=== PATIENT | female | born 1955 | race Caucasian/White ===

== ENCOUNTER → 2017-03-10 | Outpatient (CLI) | payer OTHER ==
[~2017-03-10] MED LIST: AMLO-114 PO; ASPI81TA28 PO; ATOR-22 PO; CLB/200 PO; ESTR0.3T PO; FLUO20CA35 PO; HYDR-4332 PO; LORA-741 PO; PRLSR20 PO; RANI150C4 PO; TRIATAB3 PO
== END | disposition home or self-care (01) ==
LOC: C.CPL 15:17
PROVIDERS: ATTEND Orthopaedic Surgery
DX: M23.303 Other meniscus derangements, unspecified medial meniscus, right knee (principal)

== ENCOUNTER → 2017-03-15 | Outpatient (CLI) | payer OTHER ==
[2017-03-15 13:15] LABS: LYME DISEASE AB IGG NEG (NEG); LYME DISEASE AB IGM NEG (NEG)
== END | disposition home or self-care (01) ==
LOC: C.LAB 11:04
PROVIDERS: ATTEND Orthopaedic Surgery
DX: T14.8XXA Other injury of unspecified body region, initial encounter (principal); W57.XXXA Bitten or stung by nonvenomous insect and other nonvenomous arthropods, initial encounter

== ENCOUNTER 2017-08-23 07:16 | Inpatient (IN) | payer OTHER ==
--- NOTE | 2017-08-10 15:36 | PAT Medication Instructions ---
Service Date Aug 10, 2017. Current Home Medication List Amlodipine (Norvasc), 5 MG PO QAM Atorvastatin (Lipitor), 20 MG PO QPM Fluoxetine (Prozac), 10 MG PO QAM Imipramine (Tofranil), 50 MG PO QPM Lorazepam (Ativan), 0.5 MG PO HS PRN for PRN Meloxicam (Mobic), 15 MG PO QAM Metoprolol Succinate (Toprol Xl), 1 TAB PO QPM Omeprazole (Prilosec), 20 MG PO BID Ranitidine Hcl (Ranitidine Hcl), 150 MG PO QPM Triamterene/Hctz (Triamterene/Hctz 37.5-25MG), 1 TAB PO QAM Medication Instructions For Your Scheduled Surgery - Check with surgeon for instructions: Meloxicam (Mobic), 15 MG PO QAM - Hold the following medications the morning of surgery: Triamterene/Hctz (Triamterene/Hctz 37.5-25MG), 1 TAB PO QAM - Take the following medications the morning of surgery with a sip of water: Omeprazole (Prilosec), 20 MG PO BID Lorazepam (Ativan), 0.5 MG PO HS PRN for PRN (if needed) Fluoxetine (Prozac), 10 MG PO QAM Amlodipine (Norvasc), 5 MG PO QAM - Take the following medications as scheduled the night before surgery: Ranitidine Hcl (Ranitidine Hcl), 150 MG PO QPM Omeprazole (Prilosec), 20 MG PO BID Metoprolol Succinate (Toprol Xl), 1 TAB PO QPM Lorazepam (Ativan), 0.5 MG PO HS PRN for PRN (if needed) Atorvastatin (Lipitor), 20 MG PO QPM\ Imipramine (Tofranil), 50 MG PO QPM If you have any questions please call us at [phone] or [phone] or [phone]
--- NOTE | 2017-08-10 16:15 | DIAGNOSTIC IMAGING REPORT ---
CHEST 2 VIEWS ROUTINE HISTORY: 62 years-old Female pat preoperative exam. No acute chest complaints. COMPARISON: Chest radiograph and CTA chest 05/09/2014 TECHNIQUE: PA and lateral views of the chest FINDINGS: Cardiomediastinal and hilar silhouettes are within normal limits. There is no pneumothorax, pleural effusion, focal airspace consolidation or overt pulmonary edema. The lateral left lung base is excluded from the [id number] secondary to technique. Degenerative changes are seen about the shoulders and spine. IMPRESSION: No acute process. The above report was generated using voice recognition software. It may contain grammatical, syntax or spelling errors. Electronically signed by: Deon Chino M.D. 08/10/2017 4:14 PM Dictated Date/Time: 08/10/2017 4:13 PM
[2017-08-10 16:18] LABS: BASO ABS # 0.07 K/uL (0-0.2); EOS % 3.1 %; EOS ABS # 0.22 K/uL (0-0.5); HEMATOCRIT 39.9 % (37-47); HEMOGLOBIN 13.1 g/dL (12.0-16.0); IG# 0.02 K/uL (0.00-0.02); LYMPH % 35.2 %; LYMPH ABS # 2.54 K/uL (1.2-3.4); MEAN CELL VOLUME 81.4 fL (80-100); MEAN CORPUSCULAR HEMOGLOBIN 26.7 pg (25-34); MEAN CORPUSCULAR HGB CONC 32.8 g/dl (32-36); MEAN PLATELET VOLUME 10.3 fL (7.4-10.4); MONO % 6.7 %; MONO ABS # 0.48 K/uL (0.11-0.59); NEUT % 53.7 %; NEUT ABS # 3.88 K/uL (1.4-6.5); PLATELET COUNT 291 K/uL (130-400); RED CELL DISTRIBUTION WIDTH CV 14.5 % (11.5-14.5); RED CELL DISTRIBUTION WIDTH SD 42.8 fL (36.4-46.3); WHITE BLOOD COUNT 7.21 K/uL (4.8-10.8)
[2017-08-10 16:26] LABS: PTT PATIENT 26.6 SECONDS (21.0-31.0)
[2017-08-10 16:42] LABS: ALBUMIN 3.7 gm/dl (3.4-5.0); CALCIUM 9.2 mg/dl (8.5-10.1); CREATININE 0.97 mg/dl (0.60-1.20); POTASSIUM 3.5 mmol/L (3.5-5.1)
[2017-08-11 07:03] LABS: HEMOGLOBIN A1C 6.3 % (4.5-5.6)
--- NOTE | 2017-08-16 17:22 | HISTORY & PHYSICAL EXAMINATION ---
DATE OF ADMISSION: 08/23/2017 CHIEF COMPLAINT: Right knee pain. HISTORY OF PRESENT ILLNESS: Sushila is a pleasant 62-year-old female with a 2-year history of right knee pain. The patient rates her pain as 10/10 at worst. She has pain with her daily activities. She has limited standing and walking tolerance. Pain is worse with weightbearing. The patient uses a cane to ambulate. She has had injection, bracing, physical therapy and NSAIDS in the past without relief. She has failed conservative treatment and is scheduled for right knee replacement. PAST MEDICAL HISTORY: Hypertension, hypercholesterolemia, and acid reflux. She denies heart disease, diabetes or DVT. PAST SURGICAL HISTORY: Hysterectomy, , exploratory laparotomy, and tonsillectomy. SOCIAL HISTORY: The patient rarely drinks alcohol. She denies tobacco use. She lives in a 2-story home with her and is currently retired. FAMILY HISTORY: Negative for DVT. MEDICATIONS: Prilosec 20 mg b.i.d., Dyazide 37.5/25, Lipitor 20 mg daily, metoprolol 25 mg daily, Meloxicam 15 mg daily, imipramine 50 mg p.r.n., ranitidine 150 mg, Celebrex 200 mg, fluoxetine 10 mg. ALLERGIES: PENICILLIN. REVIEW OF SYSTEMS: See HPI. Ten other systems reviewed, all negative. PHYSICAL EXAMINATION: VITAL SIGNS: Height 5 feet 5 inches, weight 180 pounds, BMI 30. GENERAL: This is a well-developed, well-nourished female who is alert and oriented x3. Mood and affect are appropriate. HEENT: Normocephalic, atraumatic. Mucous membranes are moist and intact. NECK: Supple without lymphadenopathy. HEART: Regular rate and rhythm without murmurs, rubs or gallops. LUNGS: Clear to auscultation without wheezes or rhonchi. ABDOMEN: Soft and nontender. Bowel sounds are equal and active. EXTREMITIES: No ecchymosis, redness or warmth. Thigh and calf are soft and nontender. She has mild effusion. She has neutral alignment. Range of motion is from 0-115 degrees with +1 laxity. She is neurovascularly intact with +5/5 strength. X-RAY EXAMINATION: AP and lateral views show joint space narrowing and osteophyte formation. IMPRESSION: Degenerative joint disease, right knee. PLAN: The patient will be admitted for a right total knee arthroplasty with Dr. Jones. We will plan on aspirin for DVT prophylaxis. She will have physical therapy at home with her who is a therapist. MACKENZIE
[2017-08-23] VITALS (9 sets, daily range): BP systolic 113–124; BP diastolic 66–88; PULSE 78–106; TEMP 36.6–36.8; O2SAT 93–99; Ht 165.1 cm; Wt 78.2 kg
[~2017-08-23] VITALS: Ht 165.1 cm; Wt 78.2 kg
[2017-08-23] MEDS: TRANEXAMIC ACID INJ 1,000 MG x 2 Bags IV SCH ×4 (06:30→09:05)
[~2017-08-23 07:16] MED LIST changes: +ACETAMINOPHEN 500 MG TAB PO SCH; +AMLO-110 PO; -AMLO-114 PO; -ASPI81TA28 PO; -CLB/200 PO; +CLINDAMYCIN 600 MG/54 ML D5W IV SCH; +CLINDAMYCIN PHOS 150 MG/ML 2 ML VIAL IV SCH; +CeleBREX 200 MG CAP PO SCH; +DEXAMETHASONE 4 MG TAB PO SCH; -ESTR0.3T PO; +FAMOTIDINE 20 MG TAB PO SCH; +FLUO10CA48 PO; -FLUO20CA35 PO; +GABAPENTIN 600 MG PO SCH; -HYDR-4332 PO; +IMP/50 PO; +LACTATED RINGER'S 1000ML 500 ML IV SCH; +MELO7.5T5 PO; +METO25TA4 PO; +METOCLOPRAMIDE HCL 10 MG TAB PO SCH; +ROPIVACAINE 5MG/ML 30 ML 150 MG, BUPIVACAINE 0.5% MPF INJ 30 ML, EpINEphrine HCL INJ 0.... INFIL SCH
[2017-08-23] MEDS ORDERED: BUPIVACAINE 0.5 % 5 MG/1 ML PF 10ML VIAL ONE (07:22)
[2017-08-23] MEDS ORDERED: BUPIVACAINE 0.25% 30 ML VIAL ONE (07:22)
[2017-08-23] MEDS ORDERED: ONDANSETRON INJ 2 MG/ML 2 ML VIAL IV PRN ×2 (07:30→11:00)
[2017-08-23] MEDS ORDERED: ATROPINE SULFATE 0.1 MG/ML 5ML SYR IV PRN (07:30)
[2017-08-23] MEDS ORDERED: FENTANYL CITRATE INJ 50 MCG/1 ML 2 ML VIAL IV PRN (07:30)
[2017-08-23] MEDS ORDERED: EpHEDrine SULFATE INJ 50 MG/ML AMP IV PRN (07:30)
--- NOTE | 2017-08-23 08:02 | History & Physical Bridge Note ---
H&P Re-Evaluation Bridge Note: I have examined the patient, reviewed the History & Physical and in the interval since the performance of the History & Physical I have noted the following changes of clinical significance: No changes noted
[2017-08-23] MEDS ORDERED: MIDAZOLAM HCL 1 MG/ML 2ML VIAL ONE ×2 (08:17)
[2017-08-23] MEDS ORDERED: BACITRACIN 50000 UNIT VIAL ONE (08:51)
[2017-08-23] MEDS ORDERED: POVIDONE-IODINE OP SOLN 30 ML BTL ONE (08:51)
[2017-08-23] MEDS ORDERED: ORTHO JOINT ANESTHETIC ONE (08:51)
--- NOTE | 2017-08-23 10:29 | [facility] Post Operative Brief Note ---
Immediate Operative Summary Operative Date Aug 23, 2017. Pre-Operative Diagnosis Degenerative joint disease, right knee Post-Operative Diagnosis Degenerative joint disease, right knee Procedure(s) Performed Right total Knee Arthroplasty Cemented utilizing [employer] journey to patient match size 4 femur 3 tibia 13 probably [address] Jones Beef Lugger Surgeon(s) Slim Blackman PA-C Estimated Blood Loss 5cc Findings Consistent with Post-Op Diagnosis Specimens As Per Surgeon A. Right Knee Bone and Tissue Anesthesia Type MAC Spinal Regional Complication(s) none Disposition Disposition: Recovery Room / PACU
--- NOTE | 2017-08-23 10:30 | [facility] Operative Report ---
Operative Report Operative Date Aug 23, 2017. Pre-Operative Diagnosis Degenerative joint disease, right knee Post-Operative Diagnosis Degenerative joint disease, right knee Procedure(s) Performed Right total Knee Arthroplasty Cemented utilizing [employer] journey to patient match size 4 femur 3 tibia 13 probably [address] Jones [employer] Engraver Hand Surgeon(s) Slim Blackman PA-C Estimated Blood Loss 5cc Findings Patient presents with severe end-stage tricompartmental degenerative joint disease no response to conservative therapy x-rays will be evidence of varus alignment subchondral sclerosis marginal osteophyte subchondral cystic changes as well as patellofemoral DJD she has been no response to injections anti- inflammatories relative rest activity modification Specimens As Per Surgeon A. Right Knee Bone and Tissue Anesthesia Type MAC Spinal Regional Complication(s) none Disposition Recovery Room / PACU Indications Patient presents with severe as instructed or mild degenerative joint disease unresponsive to injections of his consolidation corticosteroid injections anti- inflammatories relative rest at 5 surgeon is evidence of tricompartmental DJD changes subchondral sclerosis marginal osteophytes varus alignment Description of Procedure After proper prepping and draping of the Right lower extremity anterior midline incision was made over the region of the extensor extensor mechanism after meticulous hemostasis was obtained and maintained in subcutaneous tissues a medial parapatellar incision was made The patella was subluxed lateralward the medial lateral gutter were cleaned from any hypertrophic synovitis and scar tissue of the distal femoral block was placed and the distal femoral osteotomy cut was made subsequently the chamfers anterior and posterior osteotomy cuts were made utilizing the 4-in-1 block the tibia was subsequently subluxed anteriorward medial and ateral meniscal remnants were excised in their entirety remnants of the anterior and posterior cruciate ligaments were excised in their entirety excellent exposure of the proximal tibia was obtained the tibial osteotomy guide was placed on the proximal tibial osteotomy cut was made once again the knee was irrigated with copious amounts of sterile saline solution the patella was subsequently everted lateralward thickened scar tissue around the patella was removed the patella was subsequently cut utilizing a freehand technique and was drilled prepared for final preparation and placement of patella socially flexion-extension gaps were checked and the equal and symmetric trials were placed to the appropriate femoral and tibial trials with poly-spacer being placed for equal flexion and extension gaps and full range of motion including extension to 0 and flexion to 140 the trial components after having been taken to recovery range of motion was subsequently removed meticulous hemostasis was obtained and maintained subsequently a knee block injection of joint cocktail including ropivacaine 0.5% 150 mg. Bupivacaine 0.5 % epinephrine 1-200,030 mL's toradol 30 mg dexamethasone 4 mg ketamine 10 mg clonidine 100 micrograms normal saline solution 30 mg was infiltrated into the soft tissues of the posterior knee medial lateral gutters and periosteal synovium special attention was paid to protect neurovascular structures at all times subsequently trial components having been removed the knee was irrigated with sterile saline solution. debris was removed the proximal tibia was subsequently prepared and was made ready for the placement of the tibial component tibial component was also cemented and tamped into position the femoral component was subsequently placed and cemented in the position the patellar component was subsequently cemented in position because hemostasis once again obtained and maintained wound having been thoroughly irrigated with debridement and debridement lavage was performed as well as a medial parapatellar incision closed with #1 Vicryl in interrupted fashion subcutaneous was closed with #2 Vicryl skin was closed with skin clips. PA-C was necessary for prepping and drapping as well as wound closure of deep fascia Sub cutaneous tissue and skin and was necessary for the case. A sterile compressive dressing was placed patient was taken to recovery in stable condition of report dictated by Robert I attest to the content of the Intraoperative Record and any orders documented therein. Any exceptions are noted below. I attest to the content of the Intraoperative Record and any orders documented therein. Any exceptions are noted below.
[2017-08-23] MEDS ORDERED: LIDOCAINE HCL 2% 2 ML VIAL (20MG/ML) ONE (10:31)
[2017-08-23] MEDS ORDERED: PROPOFOL IV EMULSION 10 MG/ML 20 ML VIAL IV ONE (10:31)
[2017-08-23] MEDS ORDERED: ZOLPIDEM TARTRATE 5 MG TAB PO PRN (11:00)
[2017-08-23] MEDS ORDERED: MoRPHine SULFATE 2 MG/ML CARP IV PRN (11:00)
[2017-08-23] MEDS ORDERED: BISACODYL 10 MG SUPP PR PRN (11:00)
[2017-08-23] MEDS ORDERED: SOD PHOSPHATE/SOD BIPHOSPHATE ENEMA 132 ML BTL PR PRN (11:00)
[2017-08-23] MEDS ORDERED: ALUMINUM/MAGNESIUM/SIMETH (MAALOX MAX) 30 ML UDC PO PRN (11:00)
[2017-08-23] MEDS ORDERED: MAGNESIUM HYDROXIDE SUSP 30 ML UDC PO PRN (11:00)
[2017-08-23] MEDS ORDERED: LORAZEPAM 0.5 MG TAB PO PRN (11:00)
[2017-08-23] MEDS ORDERED: MoRPHine SULFATE 4 MG/ML 1 ML CARP\\VIAL IV PRN (11:15)
--- NOTE | 2017-08-23 11:22 | DIAGNOSTIC IMAGING REPORT ---
R KNEE 1 OR 2 VIEWS ROUTINE CLINICAL HISTORY: AP/LATERAL IN PACU RIGHT KNEE joint replacement COMPARISON: None. DISCUSSION: Anatomic alignment posttotal right knee arthroplasty. Good contact between prosthetic and underlying bone. Surgical drains in position. Expected soft tissue postoperative change. IMPRESSION: Anatomic alignment posttotal right knee arthroplasty. The above report was generated using voice recognition software. It may contain grammatical, syntax or spelling errors. Electronically signed by: Slim Schuster M.D. 08/23/2017 11:20 AM Dictated Date/Time: 08/23/2017 11:20 AM
[2017-08-23] MEDS ORDERED: MoRPHine SULFATE 10 MG/ML CARP/VIAL IV PRN (11:30)
--- NOTE | 2017-08-23 11:53 | Anesthesiology Progress Note ---
Anesthesia Post Op Note Date & Time Aug 23, 2017 at 11:53 Vital Signs Pain Intensity: 0 Vital Signs Past 12 Hours Date Time Temp Pulse Resp B/P (MAP) Pulse Ox O2 Delivery O2 Flow Rate FiO2 08/23/17 11:40 70 12 124/72 98 Nasal Cannula 2 08/23/17 11:30 36.2 81 16 121/70 98 Nasal Cannula 2 08/23/17 11:20 77 14 119/70 97 Nasal Cannula 2 08/23/17 11:10 80 12 122/69 99 Nasal Cannula 2 08/23/17 11:03 36.2 86 14 122/71 96 Nasal Cannula 2 08/23/17 07:53 36.6 84 20 124/88 (100) 96 Room Air Notes Mental Status: alert / awake / arousable, participated in evaluation Pt Amnestic to Procedure: Yes Nausea / Vomiting: adequately controlled Pain: adequately controlled Airway Patency, RR, SpO2: stable & adequate BP & HR: stable & adequate Hydration State: stable & adequate Neuraxial Anesthesia: was administered, sensory block is resolving Anesthetic Complications: no major complications apparent
[2017-08-23] MEDS: D5W AND 1/2NSS + 20MEQ KCL 1,000 ML IV SCH ×2 (12:44→22:17)
[2017-08-23] MEDS: ACETAMINOPHEN 500 MG TAB PO SCH ×2 (13:54→20:56)
[2017-08-23] MEDS: KETOROLAC TROMETHAMINE 30 MG/ML VIAL IV. PRN (17:51)
[2017-08-23] MEDS: CLINDAMYCIN IV 600 MG in DEXTROSE 5% 50ML 50 ML IV SCH (18:40)
[2017-08-23] MEDS: TRAMADOL HCL 50 MG TAB PO PRN (19:11)
[2017-08-23] MEDS: ATORVASTATIN 20 MG TAB PO SCH (20:55)
[2017-08-23] MEDS: ASPIRIN 81 MG ECTAB PO SCH (20:56)
[2017-08-23] MEDS: IMIPRAMINE HCL 50 MG TAB PO SCH (20:56)
[2017-08-23] MEDS: SENNA 8.6 MG TAB PO SCH (20:56)
[2017-08-23] MEDS: METOPROLOL SUCC 25MG EXT REL TAB PO SCH (20:56)
[2017-08-23] MEDS: DOCUSATE SODIUM 100 MG CAP PO SCH (20:56)
[2017-08-23] MEDS: OXYCODONE HCL IR 5 MG TAB (IMMEDIATE RELEASE) PO PRN (21:06)
[2017-08-24] MEDS: OXYCODONE HCL IR 5 MG TAB (IMMEDIATE RELEASE) PO PRN ×4 (00:58→20:22)
[2017-08-24] MEDS: CLINDAMYCIN IV 600 MG in DEXTROSE 5% 50ML 50 ML IV SCH (01:37)
[2017-08-24 03:32] VITALS: BP 115/71; PULSE 81; TEMP 36.9; O2SAT 95
[2017-08-24] MEDS: KETOROLAC TROMETHAMINE 30 MG/ML VIAL IV. PRN (04:32)
[2017-08-24] MEDS: ACETAMINOPHEN 500 MG TAB PO SCH ×3 (05:37→21:51)
[2017-08-24 06:58] LABS: HEMATOCRIT 31.4 % (37-47); HEMOGLOBIN 10.2 g/dL (12.0-16.0); MEAN CELL VOLUME 80.7 fL (80-100); MEAN CORPUSCULAR HEMOGLOBIN 26.2 pg (25-34); MEAN CORPUSCULAR HGB CONC 32.5 g/dl (32-36); MEAN PLATELET VOLUME 9.7 fL (7.4-10.4); PLATELET COUNT 258 K/uL (130-400); RED CELL DISTRIBUTION WIDTH CV 14.7 % (11.5-14.5); RED CELL DISTRIBUTION WIDTH SD 43.1 fL (36.4-46.3); WHITE BLOOD COUNT 14.88 K/uL (4.8-10.8)
[2017-08-24 07:06] VITALS: BP 124/73; PULSE 92; TEMP 36.7
[2017-08-24 07:31] LABS: CALCIUM 8.5 mg/dl (8.5-10.1); CREATININE 0.73 mg/dl (0.60-1.20); POTASSIUM 3.8 mmol/L (3.5-5.1)
[2017-08-24] MEDS ORDERED: NURSING DECISION MEDICATION ORDER SCH (08:00)
[2017-08-24] MEDS ORDERED: COUGH DROP (SUGAR FREE) LOZ 24 LOZ/1 BOX LOZ ONE (08:06)
[2017-08-24] MEDS: D5W AND 1/2NSS + 20MEQ KCL 1,000 ML IV SCH (08:13)
[2017-08-24] MEDS: AMLODIPINE BESYLATE 5 MG TAB PO SCH (08:14)
[2017-08-24] MEDS: DOCUSATE SODIUM 100 MG CAP PO SCH ×2 (08:14→21:52)
[2017-08-24] MEDS: TRIAMTERENE/HCTZ 37.5/25MG TAB PO SCH (08:14)
[2017-08-24] MEDS: ASPIRIN 81 MG ECTAB PO SCH ×2 (08:14→21:52)
[2017-08-24] MEDS ORDERED: COUGH DROP (SUGAR FREE) LOZ 24 LOZ/1 BOX LOZ PRN (08:15)
[2017-08-24] MEDS: MULTIVITAMIN TAB PO SCH (08:15)
[2017-08-24] MEDS: FLUOXETINE HCL 10 MG CAP PO SCH (08:15)
[2017-08-24] MEDS: PANTOprazole SOD 40 MG TAB PO SCH (08:15)
--- NOTE | 2017-08-24 09:02 | Orthopedic Progress Note ---
Orthopedic Progress Note Date of Service Aug 24, 2017. Subjective Post OP Day: 1 Reports: feeling well, pain controlled w PO medications, Denies: complaints, chest pain, SOB, nausea / vomiting, light headedness, calf pain Objective calves soft nontender, N/V intact, capillary refill less than 2 sec., dressing C /D/I, A&O x3, toes mobile, hemovac drainage (175cc/8 hours) Date Time Temp Pulse Resp B/P (MAP) Pulse Ox O2 Delivery O2 Flow Rate FiO2 08/24/17 07:50 Room Air 08/24/17 07:06 36.7 92 18 124/73 (90) Room Air 08/24/17 03:32 36.9 81 16 115/71 (86) 95 Room Air 08/23/17 23:15 Room Air 08/23/17 23:13 36.6 95 16 123/66 (85) 93 Room Air 08/23/17 19:16 36.6 106 18 116/72 (87) 94 Room Air 08/23/17 15:20 97 Room Air 08/23/17 14:50 36.8 84 18 120/71 (87) 95 Nasal Cannula 2.0 08/23/17 13:54 36.8 81 18 121/81 (94) 98 Nasal Cannula 2.0 08/23/17 12:50 36.8 78 20 124/77 (93) 98 Nasal Cannula 2.0 08/23/17 12:24 36.7 79 16 124/76 (92) 99 Nasal Cannula 2.0 08/23/17 11:50 98 Nasal Cannula 2.0 08/23/17 11:50 36.7 90 16 113/72 (86) 98 Nasal Cannula 2.0 08/23/17 11:50 Nasal Cannula 2.0 08/23/17 11:40 70 12 124/72 98 Nasal Cannula 2 08/23/17 11:30 36.2 81 16 121/70 98 Nasal Cannula 2 08/23/17 11:20 77 14 119/70 97 Nasal Cannula 2 08/23/17 11:10 80 12 122/69 99 Nasal Cannula 2 08/23/17 11:03 36.2 86 14 122/71 96 Nasal Cannula 2 Laboratory Results 24 Hours: Test 08/24/17 06:42 Hematocrit 31.4 % Hemoglobin 10.2 g/dL Prothromb Time International Ratio 1.0 Prothrombin Time 10.7 SECONDS Assessment & Plan Assessment: POD #1 s/p right TKA pt/ot dvt proph with feli/scd/asa plan for d/c home with OPPT likely tomorrow Discharge Planning Discharge Planning: home with oppt DVT Prophylaxis: TEDs, SCDs, ASA Therapy: Physical Therapy
--- NOTE | 2017-08-24 09:03 | Discharge Instructions ---
Discharge Instructions Date of Service Aug 24, 2017. Admission Reason for Admission: Right Knee Osteoarthritis Discharge Discharge Diagnosis / Problem: right total knee replacement Discharge Goals Goal(s): Decrease discomfort, Improve function, Increase independence Activity Recommendations Activity Limitations: as noted below Weightbearing Status: Right weightbearing (as tolerated) . Current Hospital Diet Patient's current hospital diet: Regular Diet Discharge Diet Recommended Diet: Regular Diet Procedures Procedures Performed: Right total Knee Arthroplasty Cemented utilizing [employer] journey to patient match size 4 femur 3 tibia 13 probably 29 oval patella Pending Studies Studies pending at discharge: no Laboratory Results Hemoglobin A1c Test 08/10/17 15:45 Range/Units Estimated Average Glucose 134 mg/dl Hemoglobin A1c 6.3 H 4.5-5.6 % Medical Emergencies . Who to Call and When: Medical Emergencies: If at any time you feel your situation is an emergency, please call 911 immediately. . Non-Emergent Contact Non-Emergency issues call your: Primary Care Provider, Surgeon . "Provider Documentation" section prepared by Slim Blackman. . [place] Drug Monitoring Program Search Results: patient reviewed within database, no issues identified
[2017-08-24 10:54] VITALS: BP 112/74; PULSE 86; TEMP 36.8; O2SAT 95
[2017-08-24] MEDS: TRAMADOL HCL 50 MG TAB PO PRN (11:16)
[2017-08-24 15:20] VITALS: BP 130/69; PULSE 95; TEMP 36.9; O2SAT 95
[2017-08-24] MEDS: CeleBREX 200 MG CAP PO SCH (21:50)
[2017-08-24] MEDS: IMIPRAMINE HCL 50 MG TAB PO SCH (21:51)
[2017-08-24] MEDS: SENNA 8.6 MG TAB PO SCH (21:51)
[2017-08-24] MEDS: ATORVASTATIN 20 MG TAB PO SCH (21:52)
[2017-08-24 21:53] VITALS: BP 148/72; PULSE 86
[2017-08-24] MEDS: METOPROLOL SUCC 25MG EXT REL TAB PO SCH (21:53)
[2017-08-24 23:00] VITALS: BP 145/81; PULSE 86; TEMP 36.8; O2SAT 95
[2017-08-25] MEDS: OXYCODONE HCL IR 5 MG TAB (IMMEDIATE RELEASE) PO PRN ×4 (00:29→13:54)
[2017-08-25] MEDS: ACETAMINOPHEN 500 MG TAB PO SCH ×2 (05:29→13:55)
[2017-08-25 07:53] VITALS: BP 115/76; PULSE 65; TEMP 36.7; O2SAT 94
[2017-08-25] MEDS ORDERED: KETOROLAC TROMETHAMINE 30 MG/ML VIAL IV STA (08:18)
--- NOTE | 2017-08-25 08:20 | Orthopedic Progress Note ---
Orthopedic Progress Note Date of Service Aug 25, 2017. Subjective Post OP Day: 2 Reports: feeling well, complaints (PAIN THIS AM.), Denies: chest pain, SOB, nausea / vomiting, light headedness, calf pain Objective calves soft nontender, N/V intact, capillary refill less than 2 sec., incision C /D/I, A&O x3, toes mobile Date Time Temp Pulse Resp B/P (MAP) Pulse Ox O2 Delivery O2 Flow Rate FiO2 08/25/17 07:53 36.7 65 17 115/76 (89) 94 Room Air 08/25/17 07:10 Room Air 08/25/17 00:04 Room Air 08/24/17 23:00 36.8 86 16 145/81 (102) 95 Room Air 08/24/17 21:53 86 148/72 (97) 08/24/17 16:15 Room Air 08/24/17 15:20 36.9 95 17 130/69 (89) 95 Room Air 08/24/17 10:54 36.8 86 18 112/74 (87) 95 Room Air Assessment & Plan Assessment: POD #2 s/p right TKA pt/ot dvt proph with feli/scd/asa plan for d/c home with OPPT Plan: PT/OT DVT PROPH- ASA 81MG BID PAIN MANAGEMENT- NIRAV, CELEBREX, TYLENOL, ULTRAM- ADDED A STAT DOSE OF TORADOL THIS AM. DC PLANNING- DC HOME TODAY Discharge Planning Discharge Planning: home with oppt DVT Prophylaxis: TEDs, SCDs, ASA Therapy: Physical Therapy
[2017-08-25] MEDS ORDERED: CLB200 PO (08:23)
[2017-08-25] MEDS ORDERED: RXC5 PO (08:23)
[2017-08-25] MEDS ORDERED: ONDA-170 PO (08:23)
[2017-08-25] MEDS ORDERED: ASPEC81 PO (08:23)
[2017-08-25] MEDS ORDERED: SENN-61 PO (08:23)
[2017-08-25] MEDS ORDERED: ACET-24 PO (08:23)
[2017-08-25] MEDS: ASPIRIN 81 MG ECTAB PO SCH (08:46)
[2017-08-25] MEDS: AMLODIPINE BESYLATE 5 MG TAB PO SCH (08:46)
[2017-08-25] MEDS: MULTIVITAMIN TAB PO SCH (08:46)
[2017-08-25] MEDS: DOCUSATE SODIUM 100 MG CAP PO SCH (08:46)
[2017-08-25] MEDS: PANTOprazole SOD 40 MG TAB PO SCH (08:46)
[2017-08-25] MEDS: TRIAMTERENE/HCTZ 37.5/25MG TAB PO SCH (08:47)
[2017-08-25] MEDS: CeleBREX 200 MG CAP PO SCH (08:47)
[2017-08-25] MEDS: FLUOXETINE HCL 10 MG CAP PO SCH (08:47)
[2017-08-25 08:49] VITALS: O2SAT 94
[2017-08-25 10:17] VITALS: BP 115/76; PULSE 65; TEMP 36.7; O2SAT 94
--- NOTE | 2017-08-25 14:35 | Discharge Summary ---
Orthopedic Discharge Summary Admission Date/Reason Aug 23, 2017 at 11:57 Right Knee Osteoarthritis. Discharge Date/Disposition Aug 25, 2017 Home Diagnosis Principal Diagnosis: right knee osteoarthritis Procedure(s) Performed Right total Knee Arthroplasty Cemented utilizing [employer] journey to patient match size 4 femur 3 tibia 13 probably 29 oval patella Consultations NONE Medication Reconciliation New Medications: Ondansetron Hcl (Zofran) 8 Mg Tab 8 MG PO Q8 PRN for Nausea, #20 TAB Acetaminophen (Sb Non-Aspirin Extra Stre) 500 Mg Tab 1000 MG PO Q8H for 30 Days, #180 TAB Aspirin (Aspirin EC Low Dose) 81 Mg Ectab 81 MG PO BID for 30 Days, #60 TAB Celecoxib (Celebrex) 200 Mg Cap 200 MG PO BID, #60 CAP Oxycodone HCl (Oxycodone HCl) 5 Mg Tab 5-10 MG PO Q4H PRN for Pain, #60 TAB Senna (Senokot) 8.6 Mg Tab 17.2 MG PO HS for 14 Days, TAB Continued Medications: Amlodipine (Norvasc) 5 Mg Tab 5 MG PO QAM, TAB Atorvastatin (Lipitor) 20 Mg Tab 20 MG PO QPM, TAB Fluoxetine (Prozac) 10 Mg Cap 10 MG PO QAM, CAP Imipramine (Tofranil) 50 Mg Tab 50 MG PO QPM, TAB Lorazepam (Ativan) 0.5 Mg Tab 0.5 MG PO HS PRN for PRN, TAB Metoprolol Succinate (Toprol Xl) 25 Mg Tabcr 1 TAB PO QPM for 30 Days, TAB 5 Refills Omeprazole (Prilosec) 20 Mg Capcr 20 MG PO BID, CAP Ranitidine Hcl (Ranitidine Hcl) 150 Mg Cap 150 MG PO QPM Triamterene/Hctz (Triamterene/Hctz 37.5-25MG) 1 Tab Tab 1 TAB PO QAM, TAB Discontinued Medications: Meloxicam (Mobic) 7.5 Mg Tab 15 MG PO QAM, TAB Admission Physical Exam As per Admitting History & Physical. Hospital Course Patient was a same day admission after undergoing a successful right TKA. she tolerated the procedure well. Post-operatively, her activity was progressed and well tolerated. Please refer to daily progress notes and PT notes for complete details. After exam on 08/25/17, patient felt to be stable for discharge home with OPPT. Patient will f/u in the office in 2 weeks for further evaluation including x-rays and incision check, sooner if having any issues or concerns. Below are pertinent labs/studies during their hospital stay: Last Vital Signs Documentation Date Time Temp Pulse Resp B/P (MAP) Pulse Ox O2 Delivery O2 Flow Rate FiO2 08/25/17 10:17 36.7 65 17 94 Room Air 08/25/17 07:53 115/76 (89) 08/23/17 14:50 2.0 Last Resulted CBC 08/24/17 06:42 Last Resulted BMP 08/24/17 06:42 Discharge Instructions ACTIVITY RECOMMENDATIONS: SELF CARE INSTRUCTIONS AFTER TOTAL KNEE REPLACEMENT A. You may need to continue a physical therapy program after discharge from the hospital. There are several options available to you. Your doctor will assist you in selecting the best one for you. 1. An out-patient facility 2 to 3 times a week for therapy or home therapy. 2. Continue working on all exercises taught to you in the hospital. Your goals should be to increase bending of your knee to 90 degrees and beyond and to fully straighten your knee. B. You may progress at your own pace from walking with a walker or crutches to a cane; then to no assistive devices. C. Make walking a part of your daily routine. Be up as much as comfortable with rest periods throughout the day. Rest with leg elevation is very important. Use the ice wrap frequently for the first 3-4 weeks. D. There are no restrictions on activities. You may ride in a car, shop, participate in minister and all social activities. E. Wear the long elastic stockings (SANJANA hose) 20 hours a day for 2 weeks after surgery. They can be removed several times a day for laundering and for a bath. F. You may shower, no tub baths until cleared by your doctor. SPECIAL CARE INSTRUCTIONS: VERY IMPORTANT TO READ AND REVIEW A. There are a few signs you need to watch for after you are home. Call [facility] if you notice any of the followin. Increased severe knee pain. Some pain is expected especially when you exercise. 2. Increased swelling in your leg or knee; pain or swelling of the calf muscle in either lower leg. 3. Any fluid drainage from the incision. 4. Shortness of breath or chest pain. B. Please call [facility] at if you have any concerns or questions about your operation or recovery. The doctor or his nurse will return your call promptly. C. You must take antibiotics before dental work, bladder, bowel or other surgery. Your doctor will provide you with a permanent care to carry describing this precaution. IMPORTANT: * REMEMBER TO TAKE ASPIRIN, 81 MG, TWICE DAILY FOR 4 WEEKS UNLESS OTHERWISE DIRECTED. THIS IS YOUR BLOOD THINNER. * HIGH RISK PATIENTS MAY BE PRESCRIBED A STRONGER BLOOD THINNER. THIS WILL BE PROVIDED AT DISCHARGE. * CALL IF INCREASED PAIN, REDNESS, DRAINAGE OR FEVER GREATER THAT 101. * WEAR SANJANA HOSE 20 HOURS PER DAY FOR 2 WEEKS. * DERMABOND Prineo- This is a mesh tape dressing that is covered with glue. It should remain in place until the incision is properly healed, usually 10-14 days. This dressing is designed to naturally slough off. You may trim the excess mesh tape as it peels off. Incision may be briefly wet in a shower. Dry immediately by blotting with a clean, dry towel. Do not bath or swim until instructed by your doctor. Do not scratch, rub, or pick at the dressing. Do not apply any topical ointments or lotions until dressing is completely removed and/or instructed by your doctor. There may be a small piece of suture material at one end of your incision. Do not pull or trim this. If it is bothersome or catching on clothing, you may cover it with a band-aid. FOLLOW UP VISIT: If appointment is not already scheduled: Please call [facility] to make a follow-up appointment for 2 weeks after your surgery at .
== END 2017-08-25 14:10 | disposition home or self-care (01) | DRG 470 ==
LOC: C.ACU 07:16 → ENRESERV 11:33 → C.MSN 11:57
PROVIDERS: ADMIT Orthopaedic Surgery; ATTEND Orthopaedic Surgery
PROC: 0SRC0J9 Replacement of Right Knee Joint with Synthetic Substitute, Cemented, Open Approach (ICD-10-PCS; principal; 2017-08-23 09:30)
DX: M17.11 Unilateral primary osteoarthritis, right knee (principal); I10 Essential (primary) hypertension; E78.00 Pure hypercholesterolemia, unspecified; K21.9 Gastro-esophageal reflux disease without esophagitis; Z79.899 Other long term (current) drug therapy; Z79.1 Long term (current) use of non-steroidal anti-inflammatories (NSAID); Z88.0 Allergy status to penicillin

== ENCOUNTER 2019-08-07 08:27 | Inpatient (IN) ==
--- NOTE | 2019-07-16 14:02 | PAT Medication Instructions ---
Medication Instructions Date of Service July 16, 2019 Home Medications acetaminophen 1,000 mg PO Q6H PRN amlodipine [Norvasc] 5 mg PO QAM atorvastatin [Lipitor] 20 mg PO PM celecoxib [Celebrex] 200 mg PO QPM empagliflozin [Jardiance] 10 mg PO QAM fluoxetine 10 mg PO QAM imipramine HCl 50 mg PO QPM metoprolol succinate [Toprol XL] 25 mg PO QPM naproxen sodium [Aleve] 220 mg PO BID PRN omeprazole 20 mg PO BID triamterene-hydrochlorothiazid [Dyazide] 1 cap PO QAM ASK your surgeon for instructions celecoxib [Celebrex] 200 mg PO QPM naproxen sodium [Aleve] 220 mg PO BID PRN DO NOT take the morning of surgery empagliflozin [Jardiance] 10 mg PO QAM triamterene-hydrochlorothiazid [Dyazide] 1 cap PO QAM Take morning of surgery With a small sip of water, OTHERWISE NOTHING TO EAT OR DRINK AFTER MIDNIGHT: acetaminophen 1,000 mg PO Q6H PRN (if needed, may be taken up to four hours before surgery) amlodipine [Norvasc] 5 mg PO QAM fluoxetine 10 mg PO QAM omeprazole 20 mg PO BID Take evening before surgery acetaminophen 1,000 mg PO Q6H PRN (if needed) atorvastatin [Lipitor] 20 mg PO PM imipramine HCl 50 mg PO QPM metoprolol succinate [Toprol XL] 25 mg PO QPM omeprazole 20 mg PO BID Other Notes If you have any questions please call us at [phone] or [phone] or [phone] or [phone]
--- NOTE | 2019-07-17 13:58 | Anesthesiology Consultation ---
Date of Service July 17, 2019 Assessment & Plan (1) Encounter for pre-operative examination: Chart Review Chart Review: Acceptable Risk for Surgery (pending surgeon ordered pcp and cardio clearances) and Patient seen in Pre Admission Testing Teaching & Discussion Instructed NPO after midnight before surgery, except medications with 15 cc of water. Medication instructions provided according to the PAT guidelines. History Surgery Operation Date: 08/07/19 12:05 Proposed Procedures p Left Total Knee Arthroplasty - Chase Jones DO Height/Weight Height: 5 ft 5 in Weight: 83.2 kg Allergies Allergy/AdvReac Type Severity Reaction Status Date / Time Penicillins Allergy Unknown rash Verified 07/15/19 16:03 CHLORHEXADINE Allergy Intermediate itching Uncoded 07/15/19 16:03 Medications Home Medications Medication Instructions Recorded Confirmed Last Taken acetaminophen 1,000 mg PO Q6H PRN 07/15/19 07/15/19 Unknown amlodipine [Norvasc] 5 mg PO QAM 07/15/19 07/15/19 Unknown atorvastatin [Lipitor] 20 mg PO PM 07/15/19 07/15/19 Unknown celecoxib [Celebrex] 200 mg PO QPM 07/15/19 07/15/19 Unknown empagliflozin [Jardiance] 10 mg PO QAM 07/15/19 07/15/19 Unknown fluoxetine 10 mg PO QAM 07/15/19 07/15/19 Unknown imipramine HCl 50 mg PO QPM 07/15/19 07/15/19 Unknown metoprolol succinate [Toprol XL] 25 mg PO QPM 07/15/19 07/15/19 Unknown naproxen sodium [Aleve] 220 mg PO BID PRN 07/15/19 07/15/19 Unknown omeprazole 20 mg PO BID 07/15/19 07/15/19 Unknown triamterene-hydrochlorothiazid 1 cap PO QAM 07/15/19 07/15/19 Unknown [Dyazide] Past Medical History Medical History GERD (gastroesophageal reflux disease) Hx of Lyme disease Hyperlipidemia Hypertension Osteoarthritis Tinnitus Type 2 diabetes mellitus Exercise / Class Metabolic Activity II 4-5 Yardwork/Stairs/Walk up hill (Limited by knee pain, mildly SOB with 1 FOS by the top but could do, no chest pain.) Past Surgical History Surgical History History of cardiac cath ~10yrs ago for abnormal stress test. No stents. Pt reports she was told she had a 45% blockage in one artery. History of total right knee replacement Hx of section Hx of colonoscopy Hx of oophorectomy Hx of tonsillectomy Hx of total hysterectomy Nausea and vomiting after administration of anesthetic agent Past Anesthesia History No Hx of Anesthesia Complications (other than PONV) and No Family Hx of Anesthesia Complications History of PONV History of PONV and Hx of Motion Sickness Social History Smoking Status: Never smoker Do You Dip or Chew Tobacco: No Hx Alcohol Use: Yes (rarely) alcohol intake frequency: holidays/special occasions only Hx Substance Use: No Review of Systems Pt denies any recent chest pain, shortness of breath, palpitations, cough, fever or URI. Physical Exam Vital Signs BP: 116/74 P: 85bpm SPO2: 97% RA T: 98.2 F R: 16 ENMT Mouth: + dental restorations (one crown L lower molar); no chipped teeth and no loose teeth Thyromental Distance: > or= 3.5 Finger Breadths (3.5) Mallampati Class: IV Neck normal visual inspection; neck extension not limited Respiratory normal respiratory effort Auscultation: lungs clear to auscultation bilaterally Cardiovascular Rate/Rhythm: regular rate and regular rhythm Heart Sounds: no murmur Vessels: no carotid bruit Testing Laboratory Results 07/17/19 14:07 07/17/19 14:07 PT 10.5 Seconds (9.0-12.0) 07/17/19 14:07 INR 1.0 (0.9-1.1) 07/17/19 14:07 APTT 26.0 Seconds (21.0-31.0) 07/17/19 14:07 Hemoglobin A1c 6.6 % (4.5-5.6) H 07/17/19 14:07 Urine Color Yellow 07/17/19 14:07 Urine Appearance Clear (Clear) 07/17/19 14:07 Urine pH 6.0 (4.5-7.5) 07/17/19 14:07 Ur Specific [employer] 1.021 (1.000-1.030) 07/17/19 14:07 Urine Protein Negative (Negative) 07/17/19 14:07 Urine Glucose (UA) 3+ (Negative) H 07/17/19 14:07 Urine Ketones Negative (Negative) 07/17/19 14:07 Urine Nitrite Negative (Negative) 07/17/19 14:07 Ur Leukocyte Esterase Negative (Negative) 07/17/19 14:07 Blood Type A Positive 07/17/19 14:07 Antibody Screen NEGATIVE 07/17/19 14:07 Electrocardiogram Date: 07/17/19 Findings: + NSR @ (86) Nonspecific T wave abnormality. Prolonged QT. Compared with EKG of 03/10/2017, no significant change was found. Chest X-Ray Date: 07/17/19 Findings: + NAD
--- NOTE | 2019-07-17 14:32 | XRay Report ---
TWO VIEW CHEST CLINICAL HISTORY: Preoperative examination. FINDINGS: PA and lateral chest radiographs are compared to study dated 08/10/2017 and correlated with c hest CT dated 05/09/2014. The cardiomediastinal silhouette is unremarkable. There is mild bibasilar at electasis. The lungs and pleural spaces are otherwise clear. There is no pneumothorax. The skeletal s tructures are osteopenic. There is chronic posttraumatic deformity of the right clavicle. IMPRESSION: No active disease in the chest. ACT 112: Negative or not required by law. Electronically signed by: Angel Cash M.D. 07/17/2019 2:31 PM
[2019-07-17 14:46] LABS: Appearance Urine Clear (Clear); Basophils # (auto) 0.08 K/uL (0-0.2); Basophils % (auto) 0.9 %; Bilirubin Urine Negative (Negative); Blood Urine Negative (Negative); Color Urine Yellow; Eosinophils # (auto) 0.27 K/uL (0-0.5); Eosinophils % (auto) 3.2 %; Glucose Urine UA 3+ (Negative); Hematocrit (blood only) 37.4 % (37-47); Immature Granulocytes # (auto) 0.02 K/uL (0.00-0.02); Immature Granulocytes % (auto) 0.2 %; Ketones Urine Negative (Negative); Leukocyte Esterase Urine Negative (Negative); Lymphocytes # (auto) 3.21 K/uL (1.2-3.4); Lymphocytes % (auto) 37.9 %; Mean Corpuscular Hgb Conc 32.1 g/dL (32-36); Mean Corpuscular Volume 71.8 fL (80-100); Mean Platelet Volume 9.6 fL (7.4-10.4); Monocytes # (auto) 0.51 K/uL (0.11-0.59); Neutrophils # (auto) 4.38 K/uL (1.4-6.5); Neutrophils % (auto) 51.8 %; Nitrite Urine Negative (Negative); Platelet Count 360 K/uL (130-400); Protein Urine Negative (Negative); RDW Coefficient of Variation 16.3 % (11.5-14.5); RDW Standard Deviation 42.6 fL (36.4-46.3); Red Blood Count 5.21 M/uL (4.2-5.4); Specific Gravity Urine 1.021 (1.000-1.030); Urobilinogen Urine Negative (Negative); White Blood Count 8.47 K/uL (4.8-10.8)
[2019-07-17 14:52] LABS: Albumin Level 3.7 gm/dl (3.4-5.0); BUN Creatinine Ratio 17.2 (10-20); Calcium 9.1 mg/dl (8.5-10.1); Creatinine Clr Calc Pharmacy 74.8 ml/min; Est GFR (African American) 92.3; Est GFR (Non-African American) 79.7; Potassium 3.3 mmol/L (3.5-5.1)
[2019-07-17 14:58] LABS: Prothrombin Time 10.5 Seconds (9.0-12.0)
[2019-07-17 14:59] LABS: Estimated Average Glucose 143 mg/dl; Hemoglobin A1C 6.6 % (4.5-5.6)
--- NOTE | 2019-07-17 16:15 | Electrocardiogram Report ---
Test Reason : Blood Pressure : / mmHG Vent. Rate : 086 BPM Atrial Rate : 086 BPM P-R Int : 158 ms QRS Dur : 080 ms QT Int : 410 ms P-R-T Axes : 072 042 073 degrees QTc Int : 490 ms Normal sinus rhythm Nonspecific T wave abnormality Prolonged QT Abnormal ECG When compared with ECG of 10-MAR-2017 15:23, No significant change was found Confirmed by Misael Mendoza ([id number]) on 07/17/2019 4:14:37 PM Referred By: Chase Jones Confirmed By:Misael Mendoza
--- NOTE | 2019-07-29 08:21 | History & Physical Report ---
Date of Service July 29, 2019 date of surgery: 08-07-19 Assessment & Plan (1) Arthritis of knee, left: Further care discussed with patient and at this point in time has failed conservative measures and would like to proceed with a Left total knee replacement. Plan on discharge will be home with home health physical therapy. DVT prophalaxis with TEDs, SCDs and will also place on aspirin 81 mg p.o. b.i.d. for a month postop. Patient will have follow up appointment in our office two weeks post op for staple/suture removal and re-evaluation. Patient otherwise has no other questions or concerns. History of Present Illness Chief Complaint: left knee pain Primary Care Provider: Soraya Payne Ms Sherwood is a 64 year old female who is here for a follow up of left knee pain, presents for pre-op evaluation prior to a left total knee replacement at [facility]. She presents with pain and stiffness on the left side. She states that the symptoms have been chronic non-traumatic. Currently the patient states that the symptoms are moderate-severe. The pain is described as aching, sharp and throbbing. She rates her current pain as 6/10. The symptoms are aggravated by ascending stairs, descending stairs and daily activities. In addition to left knee pain the patient is also experiencing decreased mobility, difficulty bending, difficulty going to sleep, limping, nighttime awakening, pain, stiffness, tenderness and weakness. Prior NSAIDs include Aleve and IBU. Prior pain medications include Tylenol. She has been treated with a corticosteroid injection on the left side. she has done home physical therapy as well. Allergies Allergy/AdvReac Type Severity Reaction Status Date / Time Penicillins Allergy Unknown rash Verified 07/15/19 16:03 CHLORHEXADINE Allergy Intermediate itching Uncoded 07/15/19 16:03 Home Medications Home Medications Medication Instructions Recorded Confirmed Type acetaminophen 1,000 mg PO Q6H PRN 07/15/19 07/15/19 History amlodipine [Norvasc] 5 mg PO QAM 07/15/19 07/15/19 History atorvastatin [Lipitor] 20 mg PO PM 07/15/19 07/15/19 History celecoxib [Celebrex] 200 mg PO QPM 07/15/19 07/15/19 History empagliflozin [Jardiance] 10 mg PO QAM 07/15/19 07/15/19 History fluoxetine 10 mg PO QAM 07/15/19 07/15/19 History imipramine HCl 50 mg PO QPM 07/15/19 07/15/19 History metoprolol succinate [Toprol XL] 25 mg PO QPM 07/15/19 07/15/19 History naproxen sodium [Aleve] 220 mg PO BID PRN 07/15/19 07/15/19 History omeprazole 20 mg PO BID 07/15/19 07/15/19 History triamterene-hydrochlorothiazid 1 cap PO QAM 07/15/19 07/15/19 History [Dyazide] Past Med/Surg History Medical History GERD (gastroesophageal reflux disease) Hx of Lyme disease Hyperlipidemia Hypertension Osteoarthritis Tinnitus Type 2 diabetes mellitus Surgical History History of cardiac cath ~10yrs ago for abnormal stress test. No stents. Pt reports she was told she had a 45% blockage in one artery. History of total right knee replacement Hx of section Hx of colonoscopy Hx of oophorectomy Hx of tonsillectomy Hx of total hysterectomy Nausea and vomiting after administration of anesthetic agent Family History (Updated 07/29/19 @ 08:14 by Slim Blackman PA-C) Unknown No family history of adverse response to anesthesia Social History Preferred Language: [place] Beliefs That Will Affect Care: None Current Living Situation: Spouse Feels Safe at Home: Yes Safety Concerns: Feels Safe At This Time Smoking Status: Never smoker Do You Dip or Chew Tobacco: No ; Second Hand Exposure: No ; Hx Alcohol Use: Yes (rarely) Hx Substance Use: No Review of Systems Review of Systems: All systems reviewed & are unremarkable except as noted in HPI & below Constitutional: no fever, no chills and no sweats Respiratory: no cough and no dyspnea Cardiovascular: no chest pain, no dyspnea and no orthopnea Gastrointestinal: no abdominal pain, no nausea and no vomiting Musculoskeletal: as per Subjective / HPI Physical Exam Physical Exam: Ht: 5ft 5in Wt: 83.2kg BP: 122/70 Pulse: 80 Constitutional: WD/WN, vitals as above no acute distress Respiratory: normal respiratory effort, lungs clear to auscultation no respiratory distress, no labored breathing and does not use accessory muscles Cardiovascular: RRR, no murmur, no edema Gastrointestinal (Abdomen): normal bowel sounds, soft, nontender, no hepatosplenomegaly Musculoskeletal: Knee: + knee abnormal to inspection (Left knee), + effusion (+1 effusion), + surgical incision (well healed portals), + limited ROM of knee (ROM 0/3/110), + knee ROM with crepitation, + joint line tenderness (medial joint line) and + oJn's sign positive; no deformity, no skin erythema, no ecchymosis, no valgus laxity, no varus laxity, anterior drawer test negative, Larry's sign negative and pivot shift test negative Results & Data Laboratory Results Laboratory Results WBC 8.47 K/uL (4.8-10.8) 07/17/19 14:07 RBC 5.21 M/uL (4.2-5.4) 07/17/19 14:07 Hgb 12.0 g/dL (12.0-16.0) 07/17/19 14:07 Hct 37.4 % (37-47) 07/17/19 14:07 MCV 71.8 fL (80-100) L 07/17/19 14:07 MCH 23.0 pg (25-34) L 07/17/19 14:07 MCHC 32.1 g/dL (32-36) 07/17/19 14:07 RDW Std Deviation 42.6 fL (36.4-46.3) 07/17/19 14:07 RDW Coeff of [place] 16.3 % (11.5-14.5) H 07/17/19 14:07 Plt Count 360 K/uL (130-400) 07/17/19 14:07 MPV 9.6 fL (7.4-10.4) 07/17/19 14:07 Immature Gran % (Auto) 0.2 % 07/17/19 14:07 Neut % (Auto) 51.8 % 07/17/19 14:07 Lymph % (Auto) 37.9 % 07/17/19 14:07 [place] % (Auto) 6.0 % 07/17/19 14:07 Eos % (Auto) 3.2 % 07/17/19 14:07 Baso % (Auto) 0.9 % 07/17/19 14:07 Immature Gran # (Auto) 0.02 K/uL (0.00-0.02) 07/17/19 14:07 Neut # (Auto) 4.38 K/uL (1.4-6.5) 07/17/19 14:07 Lymph # (Auto) 3.21 K/uL (1.2-3.4) 07/17/19 14:07 [place] # (Auto) 0.51 K/uL (0.11-0.59) 07/17/19 14:07 Eos # (Auto) 0.27 K/uL (0-0.5) 07/17/19 14:07 Baso # (Auto) 0.08 K/uL (0-0.2) 07/17/19 14:07 PT 10.5 Seconds (9.0-12.0) 07/17/19 14:07 INR 1.0 (0.9-1.1) 07/17/19 14:07 APTT 26.0 Seconds (21.0-31.0) 07/17/19 14:07 PTT Ratio 1.0 07/17/19 14:07 Sodium 136 mmol/L (136-145) 07/17/19 14:07 Potassium 3.3 mmol/L (3.5-5.1) L 07/17/19 14:07 Chloride 102 mmol/L (98-107) 07/17/19 14:07 Carbon Dioxide 26 mmol/L (21-32) 07/17/19 14:07 Anion Gap 9.0 (3-11) 07/17/19 14:07 BUN 14 mg/dl (7-18) 07/17/19 14:07 Creatinine 0.79 mg/dl (0.6-1.2) 07/17/19 14:07 Est Cr Clr Drug Dosing 74.8 ml/min 07/17/19 14:07 Est GFR ( Amer) 92.3 07/17/19 14:07 Est GFR (Non-Af Amer) 79.7 07/17/19 14:07 BUN/Creatinine Ratio 17.2 (10-20) 07/17/19 14:07 Glucose 125 mg/dl (70-99) H 07/17/19 14:07 Estimat Average Glucose 143 mg/dl 07/17/19 14:07 Hemoglobin A1c 6.6 % (4.5-5.6) H 07/17/19 14:07 Calcium 9.1 mg/dl (8.5-10.1) 07/17/19 14:07 Albumin 3.7 gm/dl (3.4-5.0) 07/17/19 14:07 Urine Color Yellow 07/17/19 14:07 Urine Appearance Clear (Clear) 07/17/19 14:07 Urine pH 6.0 (4.5-7.5) 07/17/19 14:07 Ur Specific [place] 1.021 (1.000-1.030) 07/17/19 14:07 Urine Protein Negative (Negative) 07/17/19 14:07 Urine Glucose (UA) 3+ (Negative) H 07/17/19 14:07 Urine Ketones Negative (Negative) 07/17/19 14:07 Urine Blood Negative (Negative) 07/17/19 14:07 Urine Nitrite Negative (Negative) 07/17/19 14:07 Urine Bilirubin Negative (Negative) 07/17/19 14:07 Urine Urobilinogen Negative (Negative) 07/17/19 14:07 Ur Leukocyte Esterase Negative (Negative) 07/17/19 14:07 Blood Type A Positive 07/17/19 14:07 Antibody Screen NEGATIVE 07/17/19 14:07 Diagnostic Findings Left Knee X-ray showing degenerative changes to the left knee, greatest medial compartments and patellofemoral joint, showing joint space narrowing, osteophyte formation and subchondral sclerosis. no acute bony pathology noted.
[~2019-08-07 08:27] MED LIST changes: -AMLO-110 PO; -ATOR-22 PO; +BUPIVACAINE 0.5 % 5 MG/1 ML PF 10ML VIAL ONE; +CLINDAMYCIN 600 MG/54 ML BAG IV SCH; -CLINDAMYCIN 600 MG/54 ML D5W IV SCH; -CLINDAMYCIN PHOS 150 MG/ML 2 ML VIAL IV SCH; -DEXAMETHASONE 4 MG TAB PO SCH; -FLUO10CA48 PO; +GABAPENTIN 600 MG DOSE PO SCH; -GABAPENTIN 600 MG PO SCH; -IMP/50 PO; -LACTATED RINGER'S 1000ML 500 ML IV SCH; -LORA-741 PO; +LR 500ML BOLUS, THEN 15ML/HR IV SCH; -MELO7.5T5 PO; -METO25TA4 PO; -METOCLOPRAMIDE HCL 10 MG TAB PO SCH; -PRLSR20 PO; -RANI150C4 PO; +ROPIVACAINE 0.5% HCL/PF 150 MG, BUPIVACAINE 0.5% MPF 30 ML, EPINEPHrine 30MG/30ML (OR U... INSTIL SCH; -ROPIVACAINE 5MG/ML 30 ML 150 MG, BUPIVACAINE 0.5% MPF INJ 30 ML, EpINEphrine HCL INJ 0.... INFIL SCH; +TRANEXAMIC ACID 1,000 MG **IV Intra-op IV SCH; +TRANEXAMIC ACID 1,000 MG **IV Pre-op IV SCH; -TRIATAB3 PO; +dexAMETHasone 4 MG TAB PO SCH
[2019-08-07] MEDS ORDERED: MIDAZOLAM HCL 1 MG/ML 2ML VIAL ONE (09:16)
[2019-08-07] MEDS ORDERED: fentaNYL citrate 100 MCG/2 ML VIAL ONE (09:16)
[2019-08-07] MEDS ORDERED: ONDANSETRON INJ 2 MG/ML 2 ML VIAL ONE (09:16)
[2019-08-07] MEDS ORDERED: PROPOFOL IV EMULSION 10 MG/ML 20 ML VIAL IV ONE (09:16)
[2019-08-07] MEDS ORDERED: LIDOCAINE HCL 2% 2 ML VIAL/AMP(20MG/ML) INFIL ONE (09:16)
--- NOTE | 2019-08-07 09:53 | History & Physical Bridge Note ---
Date of Service August 07, 2019 History & Physical Bridge Note I have examined the patient, reviewed the History & Physical and in the interval since the performance of the History & Physical I have noted the following changes of clinical significance: no changes noted
[2019-08-07] MEDS ORDERED: ONDANSETRON INJ 2 MG/ML 2 ML VIAL IV PRN ×2 (10:00→14:07)
[2019-08-07] MEDS ORDERED: fentaNYL citrate 100 MCG/2 ML VIAL IV PRN (10:00)
[2019-08-07] MEDS ORDERED: ePHEDrine sulfate 50 MG/ML AMP IV PRN (10:00)
[2019-08-07] MEDS ORDERED: ATROPINE SULFATE 0.1 MG/ML 10ML SYR IV PRN (10:00)
[2019-08-07] MEDS ORDERED: BACITRACIN INJ 50,000 UNIT VIAL ONE (10:27)
[2019-08-07] MEDS ORDERED: ORTHO JOINT ANESTHETIC ONE (10:27)
[2019-08-07] MEDS ORDERED: PHENYLEPHRINE 100MCG/ML 5ML SYR ONE (12:11)
--- NOTE | 2019-08-07 12:18 | Operative Report ---
Post Operative Report Pre & Post Diagnosis Operation Date: 08/07/19 11:00 Pre-Op Diagnosis: Left knee degenerative joint disease Post-Op Diagnosis: Left knee degenerative joint disease I identified the patient and participated in the time-out.: Yes Procedure Left total knee arthroplasty utilizing Fournier & Nephew patient matched total knee arthroplasty size 4 femur 3 tibia 10 polyethylene 29 oval patella Operation Date: 08/07/19 11:00 <No data on this case meets the specified criteria> Surgeon Chase Jones DO Pot Annealer Andrew MATHIS Estimated Blood Loss 5 Findings Consistent with Post-Op Diagnosis Patient presents with severe end-stage tricompartmental degenerative joint disease of the left knee she is failed attempted conservative management she is noted evidence of marginal osteophyte subchondral sclerosis eburnated [id number] with moderate to large effusion Specimens Bone and cartilage Drains Medium bore Hemovac Anesthesia Type MAC Spinal Regional Complications none Disposition Accompanied Patient To Recovery: No Disposition: Recovery Room Indications Patient presents being seen evaluate complaints of ongoing pain to her left knee nonresponse to conservative management clinic physical therapy anti- inflammatories relative rest activity modification corticosteroid injection Visco supplementation the above intraoperative findings are noted at the time of surgery Description of Procedure After proper prepping and draping of the left lower extremity anterior midline incision was made over the region of the extensor extensor mechanism after meticulous hemostasis was obtained and maintained in subcutaneous tissues a medial parapatellar incision was made The patella was subluxed lateralward the medial lateral gutter were cleaned from any hypertrophic synovitis and scar tissue of the distal femoral block was placed and the distal femoral osteotomy cut was made subsequently the chamfers anterior and posterior osteotomy cuts were made utilizing the 4-in-1 block the tibia was subsequently subluxed anteriorward medial and ateral meniscal remnants were excised in their entirety remnants of the anterior and posterior cruciate ligaments were excised in their entirety excellent exposure of the proximal tibia was obtained the tibial osteotomy guide was placed on the proximal tibial osteotomy cut was made once again the knee was irrigated with copious amounts of sterile saline solution the patella was subsequently everted lateralward thickened scar tissue around the patella was removed the patella was subsequently cut utilizing a freehand technique and was drilled prepared for final preparation and placement of patella socially flexion-extension gaps were checked and the equal and symmetric trials were placed to the appropriate femoral and tibial trials with poly-spacer being placed for equal flexion and extension gaps and full range of motion including extension to 0 and flexion to 140 the trial components after having been taken to recovery range of motion was subsequently removed meticulous hemostasis was obtained and maintained subsequently a knee block injection of joint cocktail including ropivacaine 0.5% 150 mg. Bupivacaine 0.5% epinephrine 1-200,030 mL's toradol 30 mg dexamethasone 4 mg ketamine 10 mg clonidine 100 micrograms normal saline solution 30 mg was infiltrated into the soft tissues of the posterior knee medial lateral gutters and periosteal synovium special attention was paid to protect neurovascular structures at all times subsequently trial components having been removed the knee was irrigated with sterile saline solution. debris was removed the proximal tibia was subsequently prepared and was made ready for the placement of the tibial component tibial component was also cemented and tamped into position the femoral component was subsequently placed and cemented in the position the patellar component was subsequently cemented in position because hemostasis once again obtained and maintained wound having been thoroughly irrigated with debridement and debridement lavage was performed as well as a medial parapatellar incision closed with #1 Vicryl in interrupted fashion subcutaneous was closed with #2 Vicryl skin was closed with skin clips. PA-C was necessary for prepping and drapping as well as wound cl osure of deep fascia Sub cutaneous tissue and skin and was necessary for the case. A sterile compressive dressing was placed patient was taken to recovery in stable condition of report dictated by Robert I attest to the content of the Intraoperative Record and any orders documented therein. Any exceptions are noted below. I attest to the content of the Intraoperative Record and any orders documented therein. Any exceptions are noted below.
--- NOTE | 2019-08-07 12:20 | Operative Report ---
Post Operative Report Pre & Post Diagnosis Operation Date: 08/07/19 11:00 Pre-Op Diagnosis: Left knee degenerative joint disease Post-Op Diagnosis: Left knee degenerative joint disease I identified the patient and participated in the time-out.: Yes Procedure Left total knee arthroplasty lysing Fournier & Nephew patient matched journey to a size 4 femur 3 tibia 10 polyethylene 29 oval patella Operation Date: 08/07/19 11:00 <No data on this case meets the specified criteria> Surgeon Chase Jones DO Mediator Andrew MATHIS Estimated Blood Loss 5 Findings Consistent with Post-Op Diagnosis Patient presents with ongoing planes of pain in the above intraoperative findings consistent with subchondral sclerosis marginal osteophytes eburnated [id number] moderate to large effusion were noted Specimens Bone and cartilage Drains Medium bore Hemovac Anesthesia Type MAC Spinal Regional Complications none Disposition Accompanied Patient To Recovery: No Disposition: Recovery Room Indications Patient presents with ongoing planes of pain to the left knee no response to conservative management patient failed attempts of Visco supplementation corticosteroid injection bracing relative rest activity modification the above intraoperative findings were noted Description of Procedure After proper prepping and draping of the left lower extremity anterior midline incision was made over the region of the extensor extensor mechanism after meticulous hemostasis was obtained and maintained in subcutaneous tissues a medial parapatellar incision was made The patella was subluxed lateralward the medial lateral gutter were cleaned from any hypertrophic synovitis and scar tissue of the distal femoral block was placed and the distal femoral osteotomy cut was made subsequently the chamfers anterior and posterior osteotomy cuts were made utilizing the 4-in-1 block the tibia was subsequently subluxed anteriorward medial and ateral meniscal remnants were excised in their entirety remnants of the anterior and posterior cruciate ligaments were excised in their entirety excellent exposure of the proximal tibia was obtained the tibial osteotomy guide was placed on the proximal tibial osteotomy cut was made once again the knee was irrigated with copious amounts of sterile saline solution the patella was subsequently everted lateralward thickened scar tissue around the patella was removed the patella was subsequently cut utilizing a freehand technique and was drilled prepared for final preparation and placement of patella socially flexion-extension gaps were checked and the equal and symmetric trials were placed to the appropriate femoral and tibial trials with poly-spacer being placed for equal flexion and extension gaps and full range of motion including extension to 0 and flexion to 140 the trial components after having been taken to recovery range of motion was subsequently removed meticulous hemostasis was obtained and maintained subsequently a knee block injection of joint cocktail including ropivacaine 0.5% 150 mg. Bupivacaine 0.5% epinephrine 1-200,030 mL's toradol 30 mg dexamethasone 4 mg ketamine 10 mg clonidine 100 micrograms normal saline solution 30 mg was infiltrated into the soft tissues of the posterior knee medial lateral gutters and periosteal synovium special attention was paid to protect neurovascular structures at all times subsequently trial components having been removed the knee was irrigated with sterile saline solution. debris was removed the proximal tibia was subsequently prepared and was made ready for the placement of the tibial component tibial component was also cemented and tamped into position the femoral component was subsequently placed and cemented in the position the patellar component was subsequently cemented in position because hemostasis once again obtained and maintained wound having been thoroughly irrigated with debridement and debridement lavage was performed as well as a medial parapatellar incision closed with #1 Vicryl in interrupted fashion subcutaneous was closed with #2 Vicryl skin was closed with skin clips. PA-C was necessary for prepping and drapping as well as wound closure of deep fascia Sub cutaneous tissue and skin and was necessary for the case. A sterile compressive dressing was placed patient was taken to recovery in stable condition of report dictated by Robert I attest to the content of the Intraoperative Record and any orders documented therein. Any exceptions are noted below. I attest to the content of the Intraoperative Record and any orders documented therein. Any exceptions are noted below.
--- NOTE | 2019-08-07 13:33 | XRay Report ---
TWO VIEWS LEFT KNEE CLINICAL HISTORY: Postoperative examination. FINDINGS: AP and crosstable lateral portable views of the left knee are obtained. A left knee arthrop lasty is in near anatomic alignment. There has been undersurface remodeling of the patella. No acute fracture is seen. There are expected postoperative changes around the knee including a surgical drain , soft tissue edema, and subcutaneous gas. IMPRESSION: Expected postoperative changes status post left knee arthroplasty. No acute fracture is s een. ACT 112: Negative or not required by law. Electronically signed by: Angel Cash M.D. 08/07/2019 1:32 PM
--- NOTE | 2019-08-07 13:59 | Anesthesiology Progress Note ---
Date of Service August 07, 2019 Anesthesia Post Procedure Vital Signs Vital Signs: Temp Pulse Pulse Resp BP Pulse Ox 08/07/19 13:55 97.5 F L 105 H 19 140/75 94 08/07/19 13:40 98.4 F 108 H 16 130/78 96 08/07/19 13:30 108 H 18 123/76 93 08/07/19 13:20 110 H 14 108/79 93 08/07/19 13:10 110 H 14 99/65 L 92 08/07/19 13:04 97.5 F L 108 H 16 100/72 94 08/07/19 09:09 98.1 F 104 H 18 150/93 H 97 Transfer of Care Handoff Completed per policy Notes Mental Status: alert / awake / arousable and participated in evaluation Patient Amnestic to Procedure: Yes Nausea / Vomiting: adequately controlled Pain: adequately controlled Airway Patency, RR, SpO2: stable & adequate BP & HR: stable & adequate Hydration State: stable & adequate Neuraxial Anesthesia: was administered and sensory block is resolving Anesthetic Complications: no major complications apparent and Pt Satisfied with anesthetic care
[2019-08-07] MEDS ORDERED: bisacodyL 10 MG SUPP PR PRN (14:07)
[2019-08-07] MEDS ORDERED: MAGNESIUM HYDROXIDE SUSP 30 ML UDC PO PRN (14:07)
[2019-08-07] MEDS ORDERED: NALOXONE HCL 0.4 MG/1 ML VIAL/CARP IV PRN (14:07)
[2019-08-07] MEDS ORDERED: PHARMACY GLYCEMIC MGMT CONSULT PRN (14:21)
[2019-08-07] MEDS: SODIUM CHLORIDE 0.9% 1000ML 1,000 ML IV SCH (14:25)
[2019-08-07] MEDS: ACETAMINOPHEN 500 MG TAB PO SCH ×2 (14:29→21:36)
[2019-08-07] MEDS ORDERED: CARBOHYDRATES FOR HYPOGLYCEMIA PO PRN (14:45)
[2019-08-07] MEDS ORDERED: GLUCOSE 40% GEL 15 GM TUBE PO PRN (14:45)
[2019-08-07] MEDS ORDERED: GLUCAGON FOR INJ 1 MG VIAL IM PRN (14:45)
[2019-08-07] MEDS ORDERED: GLUCOSE 10 TABS/TUBE PO PRN (14:45)
[2019-08-07] MEDS ORDERED: DEXTROSE 50% 50 ML SYRINGE IV PRN (14:45)
--- NOTE | 2019-08-07 14:51 | Pharmacy Report ---
Glycemic Control Consultation - Date of Service August 07, 2019 - Scope Scope: Glycemic Pharmacist consulted for glycemic control and to write orders per [facility] inpatient glycemic control protocol. - Objective Weight: 83.733 kg Accuchecks BSG (last 24hrs): 08/07/19 08/07/19 08:58 13:07 POC Glucose 93 104 H HbA1c: Hemoglobin A1c 6.6 % (4.5-5.6) H 07/17/19 14:07 - Recent Pertinent Medications Outpatient Anti-diabetic Regimen: * Jardiance 10 mg PO QAM * A1c = 6.6% on 07/17/2019 The patient is currently receiving: * No anti-diabetic regimen ordered as of yet Risk Factors for Insulin Resistance: * Steroids: * Patient received Dexamethasone 8 mg IV x 1 pre-op * IVF: * NSS @ 100 cc/hr * Recent Surgery: * POD #0 Left Total Knee Arthroplasty * Diet: * T2DM - Assessment & Plan Assessment & Plan: ASSESSMENT: * Patient is POD #0 from L TKA * PMHx significant for T2DM, CAD, HLD, HTN, GERD * T2DM well-controlled as outpatient on Jardiance 10 mg daily * Pt received pre-op dexamethasone x 1, no post-op doses ordered PLAN FOR INPATIENT GLYCEMIC CONTROL: * Pt is maintained on oral antidiabetic agents as an outpatient * Oral agents are not recommended for inpatient use d/t drug interactions, changing PO intake, and difficulty titrating for acute hyper/hypoglycemia. ADA recommends re-initiating outpatient oral agents 1-2 days prior to discharge if/when appropriate if they were held on admission. * Will hold oral agents for admission and utilize SQ basal bolus insulin regimen which is the recommended regimen for inpatient glycemic control. * Will initiate weight based insulin dosing for insulin martha patient and titrate based on BSG trends. * Basal insulin * Insulin NPH 16 units (0.2 units/kg) SQ x 1 to cover steroid dose * Bolus insulin * NovoLog per scale ACHS or Q6hrs while NPO * Goal Range: Low 110 mg/dL - High 140 mg/dL * Correction Factor: 30 mg/dL/unit (wt & str of 2) * Nutritional / Prandial insulin per carb ratio of 1 unit per 10 grams CHO consumed (wt & str of 2) FISCHARGE RECOMMENDATIONS: * Pending at this time * Please note that the plan above was derived based on current level of insulin resistance and hospital stress. These recommendations are appropriate for inpatient admission only. Plan of care upon discharge will need to be reassessed to avoid potential outpatient hypo/hyperglycemia. Thank you.
--- NOTE | 2019-08-07 15:33 | Cardiology Consultation ---
Date of Consultation August 07, 2019 Assessment & Plan (1) Abnormal stress test: The patient had a recent nuclear stress test which suggest the possibility of an old apical myocardial infarction. However, the gated images on that stress test noted normal left ventricular systolic function including the apex. Suspect that this perfusion defect was related to breast attenuation. We will perform an echocardiogram to rule out a wall motion abnormality. (2) Hypertension: Adequate control on current medical regimen. (3) Hyperlipidemia: Continue atorvastatin. (4) Paroxysmal SVT (supraventricular tachycardia): No recent recurrence of her SVT. History of Present Illness Attending Physician: Chase Jones DO History of Present Illness Mrs. Sherwood is a 64-year-old female who underwent knee replacement surgery earlier today with Dr. Jones. The patient had an abnormal preoperative nuclear stress test for which this consultation was ordered. Of note, the patient has seen as an outpatient. Fortunately, the patient enjoys excellent health. She is able to carry on activities of daily life without exertional chest pain or limiting dyspnea. She further denies syncope, presyncope, PND, orthopnea, palpitations, lower extremity edema, and claudication. The patient had a nuclear stress test performed on August 02 in [place]. This revealed no evidence of myocardial ischemia, however, there was a perfusion defect in the apex suggesting an old myocardial infarction. However, the gated images noted normal left ventricular systolic function without wall motion abnormalities. We have discussed the possibility of breast attenuation causing her perfusion defect. The patient a full cardiac evaluation performed in August 2017 prior to right knee replacement surgery. This included a normal nuclear stress test. An echocardiogram noted normal left ventricular systolic function without wall motion abnormalities. A Holter monitor did note brief episodes of an SVT. Currently, patient is resting comfortably in bed without complaints. Past medical and surgical history 1. Hypertension 2. Hypercholesterolemia 3. Paroxysmal SVT 4. GERD 5. Diabetes mellitus 6. Right TKR-August 2017 7. Hysterectomy 8. Tonsillectomy 9. Social history and lives with her No tobacco Rare alcohol Family history Noncontributory Review of systems A 10 point review of systems was negative except for that described above. Allergies Allergy/AdvReac Type Severity Reaction Status Date / Time Penicillins Allergy Unknown rash Verified 08/07/19 08:51 CHLORHEXADINE Allergy Intermediate itching Uncoded 08/07/19 08:51 Home Medications Home Medications Medication Instructions Recorded Confirmed Type acetaminophen 1,000 mg PO Q6H PRN 07/15/19 07/15/19 History amlodipine [Norvasc] 5 mg PO QAM 07/15/19 08/07/19 History atorvastatin [Lipitor] 20 mg PO PM 07/15/19 08/07/19 History celecoxib [Celebrex] 200 mg PO QPM 07/15/19 08/07/19 History empagliflozin [Jardiance] 10 mg PO QAM 07/15/19 08/07/19 History fluoxetine 10 mg PO QAM 07/15/19 08/07/19 History imipramine HCl 50 mg PO QPM 07/15/19 08/07/19 History metoprolol succinate [Toprol XL] 25 mg PO QPM 07/15/19 08/07/19 History naproxen sodium [Aleve] 220 mg PO BID PRN 07/15/19 07/15/19 History omeprazole 20 mg PO BID 07/15/19 08/07/19 History triamterene-hydrochlorothiazid 1 cap PO QAM 07/15/19 08/07/19 History [Dyazide] Patient History Medical History GERD (gastroesophageal reflux disease) Hx of Lyme disease Hyperlipidemia Hypertension Osteoarthritis Tinnitus Type 2 diabetes mellitus Surgical History History of cardiac cath ~10yrs ago for abnormal stress test. No stents. Pt reports she was told she had a 45% blockage in one artery. History of total right knee replacement Hx of section Hx of colonoscopy Hx of oophorectomy Hx of tonsillectomy Hx of total hysterectomy Nausea and vomiting after administration of anesthetic agent Family History (Updated 07/29/19 @ 08:14 by Slim Blackman PA-C) Unknown No family history of adverse response to anesthesia Social History Preferred Language: Peruvian Beliefs That Will Affect Care: None Current Living Situation: Spouse Feels Safe at Home: Yes Safety Concerns: Feels Safe At This Time Smoking Status: Never smoker Do You Dip or Chew Tobacco: No ; Second Hand Exposure: No ; Hx Alcohol Use: Yes (rarely) Hx Substance Use: No Physical Exam Physical Exam: In general this is a well-developed well-nourished white female in no acute distress. HEENT exam is negative. Neck is supple with full carotid upstrokes. There are no carotid bruits. Jugular venous pressure is flat at 90. There is no thyromegaly. Cardiovascular exam reveals a regular rhythm with a normal S1 and S2. No S3, S4, or murmurs are noted. Lungs are clear without rales, rhonchi, or wheezes. Abdomen is soft and nontender without bruits. Extremities reveal intact radial artery and posterior tibial pulses bilaterally. There is no peripheral edema. Results & Data ([facility]) Vital Signs (Past 12 Hours) Vital Signs Temp Pulse Pulse Resp BP Pulse Ox 08/07/19 15:01 111 H 18 127/78 96 08/07/19 14:42 111 H 18 142/90 H 98 08/07/19 14:05 36.7 C 101 H 18 130/79 97 08/07/19 13:55 36.4 C L 105 H 19 140/75 94 08/07/19 13:40 36.9 C 108 H 16 130/78 96 08/07/19 13:30 108 H 18 123/76 93 08/07/19 13:20 110 H 14 108/79 93 08/07/19 13:10 110 H 14 99/65 L 92 08/07/19 13:04 36.4 C L 108 H 16 100/72 94 08/07/19 09:09 36.7 C 104 H 18 150/93 H 97 Laboratory Results CBC notes a hemoglobin of 12.0, hematocrit 37.4, white count 8.4, platelet count [id number]. Electrolytes note a sodium of 136, potassium 3.5, chloride 102, bicarb 26, BUN 14, creatinine 0.79, glucose of 125. Hemoglobin A1c is 6.3. Diagnostic Findings EKG notes normal sinus rhythm and nonspecific T-wave abnormality. Chest x-ray shows no acute disease. PG Care Time/CCT Total # of Minutes Spent Total Time Spent with Patient: Total time spent is greater than 50% in coordination of care (as documented) at patient's floor/unit and/or counseling patient: Coding Level of Care Code 73791 Inpt Consult Level 4 Diagnoses Abnormal stress test R94.39 Hypertension I10 Hyperlipidemia E78.5 Paroxysmal SVT (supraventricular tachycardia) I47.1
--- NOTE | 2019-08-07 16:12 | XCELERA ---
[id number] \\[email or web address]\[id number]
[2019-08-07] MEDS ORDERED: NovoLIN-N (NPH) PER UNIT CHARGE SQ ONE (16:30)
[2019-08-07] MEDS: INSULIN ASPART 100 UNITS/ML 3 ML PEN SC SCH ×2 (18:59→20:44)
[2019-08-07] MEDS: CLINDAMYCIN 600 MG in DEXTROSE 5% 50 ML IV SCH (20:17)
[2019-08-07] MEDS: FERROUS GLUCONATE 324 MG TAB PO SCH (20:17)
[2019-08-07] MEDS: DOCUSATE SODIUM 100 MG CAP PO SCH (20:24)
[2019-08-07] MEDS: ATORVASTATIN 20 MG TAB PO SCH (20:24)
[2019-08-07] MEDS: SENNA 8.6 MG TAB PO SCH (20:25)
[2019-08-07] MEDS: IMIPRAMINE HCL 50 MG TAB PO SCH (20:25)
[2019-08-07] MEDS: METOPROLOL SUCC 25MG EXT REL TAB PO SCH (20:26)
[2019-08-07] MEDS: OXYCODONE HCL IR 5 MG TAB (IMMEDIATE RELEASE) PO PRN (20:32)
[2019-08-07] MEDS: HYDROmorphone INJ 0.5 MG/0.5 ML SYR IV PRN (23:03)
[2019-08-08] MEDS: OXYCODONE HCL IR 5 MG TAB (IMMEDIATE RELEASE) PO PRN ×5 (01:07→22:26)
[2019-08-08] MEDS: SODIUM CHLORIDE 0.9% 1000ML 1,000 ML IV SCH (02:07)
[2019-08-08] MEDS: CLINDAMYCIN 600 MG in DEXTROSE 5% 50 ML IV SCH (04:02)
[2019-08-08] MEDS: ACETAMINOPHEN 500 MG TAB PO SCH ×3 (06:02→21:25)
[2019-08-08 07:05] LABS: Hematocrit (blood only) 28.7 % (37-47); Mean Corpuscular Hemoglobin 22.8 pg (25-34); Mean Corpuscular Hgb Conc 31.4 g/dL (32-36); Mean Corpuscular Volume 72.8 fL (80-100); Mean Platelet Volume 9.3 fL (7.4-10.4); Platelet Count 295 K/uL (130-400); RDW Standard Deviation 45.5 fL (36.4-46.3); Red Blood Count 3.94 M/uL (4.2-5.4); White Blood Count 14.29 K/uL (4.8-10.8)
[2019-08-08 07:34] LABS: BUN Creatinine Ratio 18.3 (10-20); Calcium 8.4 mg/dl (8.5-10.1); Creatinine Clr Calc Pharmacy 77.9 ml/min; Est GFR (African American) 93.1; Est GFR (Non-African American) 80.3
[2019-08-08] MEDS ORDERED: NON-FORMULARY MEDICATION (Empagliflozin [Jardiance] 10 MG) PO SCH (09:00)
--- NOTE | 2019-08-08 09:47 | Orthopedic Progress Note ---
Date of Service August 08, 2019 Assessment & Plan (1) Arthritis of knee, left: Postop day 1 status post left total knee arthroplasty. Leukocytosis-most likely secondary to surgical stress and preoperative steroids. Patient currently asymptomatic. PT/OT protocols. Weightbearing as tolerated. DVT prophylaxis with aspirin twice daily, SCDs, SANJANA hose. Continue current pain regimen. DC planning-planning for outpatient PT Admission and Anticipated Discharge Date Admission Date: August 07, 2019 Subjective Postop day 1 Patient currently sitting up in bed. No overt complaints this morning. Cardiology service was in and discussed her echocardiogram results. Pain currently controlled. Denies shortness of breath, chest pain, lightheadedness. She states that she had to have a catheter placed last night due to urinary retention. She states she has not been out of bed yet. Physical Exam Physical Exam: Dressings are clean, dry, and intact. Calves are soft and nontender. Neurovascular is intact. He has good dorsiflexion and plantarflexion of the left foot. Hemovac drainage was 100 mL from the previous shift Results & Data ([facility]) Vital Signs (Past 12 Hours) Vital Signs Temp Pulse Resp BP Pulse Ox 08/08/19 07:35 36.8 C 74 16 113/66 96 08/08/19 04:07 36.9 C 76 16 104/68 96 08/07/19 23:04 36.8 C 94 H 18 124/79 96 Laboratory Results Laboratory Results WBC 14.29 K/uL (4.8-10.8) H 08/08/19 06:44 RBC 3.94 M/uL (4.2-5.4) L 08/08/19 06:44 Hgb 9.0 g/dL (12.0-16.0) L 08/08/19 06:44 Hct 28.7 % (37-47) L 08/08/19 06:44 MCV 72.8 fL (80-100) L 08/08/19 06:44 MCH 22.8 pg (25-34) L 08/08/19 06:44 MCHC 31.4 g/dL (32-36) L 08/08/19 06:44 RDW Std Deviation 45.5 fL (36.4-46.3) 08/08/19 06:44 RDW Coeff of [place]reras 17.0 % (11.5-14.5) H 08/08/19 06:44 Plt Count 295 K/uL (130-400) 08/08/19 06:44 MPV 9.3 fL (7.4-10.4) 08/08/19 06:44 Immature Gran % (Auto) 0.2 % 07/17/19 14:07 Neut % (Auto) 51.8 % 07/17/19 14:07 Lymph % (Auto) 37.9 % 07/17/19 14:07 [place] % (Auto) 6.0 % 07/17/19 14:07 Eos % (Auto) 3.2 % 07/17/19 14:07 Baso % (Auto) 0.9 % 07/17/19 14:07 Immature Gran # (Auto) 0.02 K/uL (0.00-0.02) 07/17/19 14:07 Neut # (Auto) 4.38 K/uL (1.4-6.5) 07/17/19 14:07 Lymph # (Auto) 3.21 K/uL (1.2-3.4) 07/17/19 14:07 [place] # (Auto) 0.51 K/uL (0.11-0.59) 07/17/19 14:07 Eos # (Auto) 0.27 K/uL (0-0.5) 07/17/19 14:07 Baso # (Auto) 0.08 K/uL (0-0.2) 07/17/19 14:07 PT 10.5 Seconds (9.0-12.0) 07/17/19 14:07 INR 1.0 (0.9-1.1) 07/17/19 14:07 APTT 26.0 Seconds (21.0-31.0) 07/17/19 14:07 PTT Ratio 1.0 07/17/19 14:07 Sodium 138 mmol/L (136-145) 08/08/19 06:44 Potassium 4.0 mmol/L (3.5-5.1) 08/08/19 06:44 Chloride 107 mmol/L (98-107) 08/08/19 06:44 Carbon Dioxide 26 mmol/L (21-32) 08/08/19 06:44 Anion Gap 5.0 (3-11) 08/08/19 06:44 BUN 14 mg/dl (7-18) 08/08/19 06:44 Creatinine 0.78 mg/dl (0.6-1.2) 08/08/19 06:44 Est Cr Clr Drug Dosing 77.9 ml/min 08/08/19 06:44 Est GFR ( Amer) 93.1 08/08/19 06:44 Est GFR (Non-Af Amer) 80.3 08/08/19 06:44 BUN/Creatinine Ratio 18.3 (10-20) 08/08/19 06:44 Glucose 111 mg/dl (70-99) H 08/08/19 06:44 POC Glucose 98 mg/dl (70-99) 08/08/19 08:29 Estimat Average Glucose 143 mg/dl 07/17/19 14:07 Hemoglobin A1c 6.6 % (4.5-5.6) H 07/17/19 14:07 Calcium 8.4 mg/dl (8.5-10.1) L 08/08/19 06:44 Albumin 3.7 gm/dl (3.4-5.0) 07/17/19 14:07 Urine Color Yellow 07/17/19 14:07 Urine Appearance Clear (Clear) 07/17/19 14:07 Urine pH 6.0 (4.5-7.5) 07/17/19 14:07 Ur Specific [place] 1.021 (1.000-1.030) 07/17/19 14:07 Urine Protein Negative (Negative) 07/17/19 14:07 Urine Glucose (UA) 3+ (Negative) H 07/17/19 14:07 Urine Ketones Negative (Negative) 07/17/19 14:07 Urine Blood Negative (Negative) 07/17/19 14:07 Urine Nitrite Negative (Negative) 07/17/19 14:07 Urine Bilirubin Negative (Negative) 07/17/19 14:07 Urine Urobilinogen Negative (Negative) 07/17/19 14:07 Ur Leukocyte Esterase Negative (Negative) 07/17/19 14:07 Blood Type A Positive 07/17/19 14:07 Antibody Screen NEGATIVE 07/17/19 14:07
[2019-08-08] MEDS: DOCUSATE SODIUM 100 MG CAP PO SCH ×2 (09:50→21:23)
[2019-08-08] MEDS: FLUOXETINE HCL 10 MG CAP PO SCH (09:50)
[2019-08-08] MEDS: FERROUS GLUCONATE 324 MG TAB PO SCH ×2 (09:50→16:06)
[2019-08-08] MEDS: MULTIVITAMIN TAB PO SCH (09:51)
[2019-08-08] MEDS: AMLODIPINE BESYLATE 5 MG TAB PO SCH (09:51)
[2019-08-08] MEDS: PANTOprazole 40 MG TAB PO SCH (09:51)
[2019-08-08] MEDS: INSULIN ASPART 100 UNITS/ML 3 ML PEN SC SCH ×4 (09:55→21:31)
--- NOTE | 2019-08-08 10:03 | Cardiology Progress Note ---
Date of Service August 08, 2019 Assessment & Plan (1) Abnormal stress test: The patient had a recent nuclear stress test which suggest the possibility of an old apical myocardial infarction. However, the gated images on that stress test noted normal left ventricular systolic function including the apex. Suspect that this perfusion defect was related to breast attenuation. Echocardiogram yesterday showed normal LV systolic function and regional wall motion. Patient was provided reassurance. (2) Hypertension: Adequate control on current medical regimen. No changes recommended at this time. (3) Hyperlipidemia: Continue atorvastatin. (4) Paroxysmal SVT (supraventricular tachycardia): No recent recurrence of her SVT. She has been asymptomatic in regards to palpitations this admission. Admission and Anticipated Discharge Date Admission Date: August 07, 2019 Subjective Patient is currently resting comfortably in bed. She denies chest pain or shortness of breath. She denies palpitations, syncope, or near syncope. She underwent an echocardiogram yesterday, and the results were reviewed with her in detail. The study showed hyperdynamic LV systolic function, EF >70%, borderline concentric LVH, normal wall motion, and no significant valvular abnormalities. Physical Exam Physical Exam: Constitutional: Alert, oriented, in no acute distress HEENT: Head is atraumatic and normocephalic. EOMs intact. Sclera non-icteric. Face is symmetric. No perioral cyanosis. Mucous membranes moist Neck: Supple, no JVD Pulmonary: Normal respiratory effort, clear to auscultation throughout Cardiac: Regular rate and rhythm, normal S1 and S2, no gallops, no rubs, no murmurs Extremities: No edema. No clubbing or cyanosis. Pulses 2+ and symmetric Abdomen: Normal bowel sounds, soft, non-tender, no abdominal masses palpated Skin: Normal skin color, turgor, and pigmentation. No rash or skin lesions Neurological: Oriented to person, place, and time Results & Data ([facility]) Vital Signs (Past 12 Hours) Vital Signs Temp Pulse Resp BP Pulse Ox 08/08/19 07:35 98.2 F 74 16 113/66 96 08/08/19 04:07 98.4 F 76 16 104/68 96 08/07/19 23:04 98.2 F 94 H 18 124/79 96 PG Care Time/CCT Total # of Minutes Spent Total Time Spent with Patient: Total time spent is greater than 50% in coordination of care (as documented) at patient's floor/unit and/or counseling patient: Coding Level of Care Code 67257 Subseq Hosp Care Lvl 2 Diagnoses Abnormal stress test R94.39 Hypertension I10 Hyperlipidemia E78.5 Paroxysmal SVT (supraventricular tachycardia) I47.1 Time Spent (min) 25
[2019-08-08] MEDS: ASPIRIN 81 MG ECTAB PO SCH ×2 (11:26→21:23)
--- NOTE | 2019-08-08 15:31 | Pharmacy Report ---
Pharmacy Glycemic Short Note 2 - Date of Service August 08, 2019 - Glycemic Short BSG Results (Last 24 hours): 08/07/19 08/07/19 08/08/19 17:31 20:33 06:44 Glucose 111 H POC Glucose 158 H 159 H 08/08/19 08/08/19 08:29 11:54 Glucose POC Glucose 98 97 OUTPATIENT ANTIDIABETIC REGIMEN: * Jardiance 10 mg PO QAM * A1c = 6.6% on 07/17/2019 ASSESSMENT: * Sushila received 16 units of NPH and 4 units of Novolog yesterday * BSGs were well controlled with Decadron on board but this should wear off today and BSGs have actually been on the lower side PLAN FOR INPATIENT GLYCEMIC CONTROL: * Continue to hold outpatient oral diabetes medications * Basal insulin - no further basal * Bolus insulin - loosen CF/CR * NovoLog per scale ACHS or Q6hrs while NPO * Goal Range: Low 110 mg/dL - High 140 mg/dL * Correction Factor: 30 mg/dL/unit * Nutritional / Prandial insulin per carb ratio of 1 unit per 12 grams CHO consumed PLAN FOR DISCHARGE: * A1c 6.6% on 07/17/19 * Goal A1c < 7% * Continue Jardiance 10 mg qAM on discharge
[2019-08-08] MEDS: HYDROmorphone INJ 0.5 MG/0.5 ML SYR IV PRN ×2 (16:02→21:18)
[2019-08-08] MEDS: ATORVASTATIN 20 MG TAB PO SCH (21:22)
[2019-08-08] MEDS: SENNA 8.6 MG TAB PO SCH (21:22)
[2019-08-08] MEDS: IMIPRAMINE HCL 50 MG TAB PO SCH (21:24)
[2019-08-08] MEDS: METOPROLOL SUCC 25MG EXT REL TAB PO SCH (21:27)
[2019-08-09] MEDS: HYDROmorphone INJ 0.5 MG/0.5 ML SYR IV PRN ×3 (01:37→12:00)
[2019-08-09] MEDS: OXYCODONE HCL IR 5 MG TAB (IMMEDIATE RELEASE) PO PRN ×5 (04:12→23:28)
[2019-08-09] MEDS: ACETAMINOPHEN 500 MG TAB PO SCH ×3 (06:19→21:13)
[2019-08-09 06:25] LABS: Basophils # (auto) 0.06 K/uL (0-0.2); Basophils % (auto) 0.6 %; Eosinophils # (auto) 0.17 K/uL (0-0.5); Eosinophils % (auto) 1.6 %; Hematocrit (blood only) 28.9 % (37-47); Hemoglobin 8.9 g/dL (12.0-16.0); Immature Granulocytes # (auto) 0.03 K/uL (0.00-0.02); Immature Granulocytes % (auto) 0.3 %; Lymphocytes # (auto) 3.76 K/uL (1.2-3.4); Lymphocytes % (auto) 35.9 %; Mean Corpuscular Hemoglobin 22.7 pg (25-34); Mean Corpuscular Hgb Conc 30.8 g/dL (32-36); Mean Corpuscular Volume 73.7 fL (80-100); Mean Platelet Volume 9.1 fL (7.4-10.4); Monocytes # (auto) 1.04 K/uL (0.11-0.59); Monocytes % (auto) 9.9 %; Neutrophils % (auto) 51.7 %; Platelet Count 300 K/uL (130-400); RDW Coefficient of Variation 17.4 % (11.5-14.5); Red Blood Count 3.92 M/uL (4.2-5.4); White Blood Count 10.46 K/uL (4.8-10.8)
[2019-08-09 06:52] LABS: Microcytosis Present
--- NOTE | 2019-08-09 07:22 | Orthopedic Progress Note ---
Date of Service August 09, 2019 Assessment & Plan (1) History of total left knee replacement: POD #2 s/p Left TKA pt/ot dvt proph with SANJANA/SCD/ASA reports increased pain over the past 24 hours as well as difficulty voiding had bladder scan and cath last evening. will recheck later today, if continued difficulty would consider urology consult. Admission and Anticipated Discharge Date Admission Date: August 07, 2019 Subjective POD #2 s/p Left TKA Review of Systems Constitutional: no fever, no chills and no sweats Respiratory: no cough and no dyspnea Cardiovascular: no chest pain and no dyspnea Gastrointestinal: no abdominal pain, no nausea and no vomiting Physical Exam Physical Exam: Vital Signs Temp 36.7 C 08/08/19 23:00 Pulse 84 08/08/19 23:00 Resp 16 08/08/19 23:00 BP 127/72 08/08/19 23:00 Pulse Ox 96 08/08/19 23:00 Intake & Output 08/08/19 08/09/19 08/09/19 18:59 06:59 18:59 Intake Total 360 / 1260 900 / 1260 Output Total 165 / 1240 125 / 1240 950 / 950 Balance 195 / 20 775 / 20 -950 / -950 Weight 83.733 kg Intake: Oral 360 / 1260 900 / 1260 Output: Urine Amount (Ca theter) 950 / 950 Straight 950 / 950 Drain Output 165 / 290 125 / 290 Left Knee Hemo vac 165 / 290 125 / 290 Other: Other Intake Na rce Dinner # Unmeasured Voi ds 1 Constitutional: WD/WN, vitals as above no acute distress Musculoskeletal: Left Leg: NVDI, calf SNT, negative trino sign. DP palpable, able to wiggle toes/ankle movement without difficulty. dressing clean dry and intact. Results & Data ([facility]) Vital Signs (Past 12 Hours) Vital Signs Temp Pulse Pulse Resp BP Pulse Ox 08/08/19 23:00 36.7 C 84 16 127/72 96 08/08/19 21:27 92 H 110/69
[2019-08-09] MEDS: FERROUS GLUCONATE 324 MG TAB PO SCH ×2 (08:27→16:32)
[2019-08-09] MEDS: FLUOXETINE HCL 10 MG CAP PO SCH (08:27)
[2019-08-09] MEDS: ASPIRIN 81 MG ECTAB PO SCH ×2 (08:28→21:14)
[2019-08-09] MEDS: MULTIVITAMIN TAB PO SCH (08:28)
[2019-08-09] MEDS: AMLODIPINE BESYLATE 5 MG TAB PO SCH (08:28)
[2019-08-09] MEDS: PANTOprazole 40 MG TAB PO SCH (08:29)
[2019-08-09] MEDS: DOCUSATE SODIUM 100 MG CAP PO SCH ×2 (08:29→21:14)
[2019-08-09] MEDS: INSULIN ASPART 100 UNITS/ML 3 ML PEN SC SCH ×4 (08:32→21:31)
--- NOTE | 2019-08-09 10:49 | Cardiology Progress Note ---
Date of Service August 09, 2019 Assessment & Plan (1) Abnormal stress test: Recent nuclear stress test suggested an old apical myocardial infarction, however, the gated images on that stress test noted normal left ventricular systolic function including the apex. Suspect that this perfusion defect was related to breast attenuation. Echocardiogram during this hospitalization noted normal LV systolic function without wall motion abnormalities. Her nuclear stress test is a false positive. (2) Hypertension: Adequate control on current medical regimen. (3) Hyperlipidemia: Continue atorvastatin. (4) Paroxysmal SVT (supraventricular tachycardia): No recent recurrence of her SVT. Admission and Anticipated Discharge Date Admission Date: August 07, 2019 Subjective The patient is resting comfortably in bed without complaints of chest pain or dyspnea. We have again discussed her false positive nuclear stress test realizing normal left ventricular systolic function by both echo and nuclear imaging. Physical Exam Physical Exam: In general this is a well-developed well-nourished white female in no acute distress. HEENT exam is negative. Neck is supple with full carotid upstrokes. There are no carotid bruits. Jugular venous pressure is flat at 90. There is no thyromegaly. Cardiovascular exam reveals a regular rhythm with a normal S1 and S2. No S3, S4, or murmurs are noted. Lungs are clear without rales, rhonchi, or wheezes. Abdomen is soft and nontender without bruits. Extremities reveal intact radial artery and posterior tibial pulses bilaterally. There is no peripheral edema. Results & Data ([facility]) Vital Signs (Past 12 Hours) Vital Signs Temp Pulse Pulse Resp BP Pulse Ox 08/09/19 07:25 36.6 C 80 18 106/64 92 08/08/19 23:00 36.7 C 84 16 127/72 96 Laboratory Results CBC notes hemoglobin of 8.9, hematocrit 28.9, white count 10.4, platelet count of [id number]. PG Care Time/CCT Total # of Minutes Spent Total Time Spent with Patient: Total time spent is greater than 50% in coordination of care (as documented) at patient's floor/unit and/or counseling patient: Coding Level of Care Code 77819 Subseq Hosp Care Lvl 3 Diagnoses Abnormal stress test R94.39 Hypertension I10 Hyperlipidemia E78.5 Paroxysmal SVT (supraventricular tachycardia) I47.1
[2019-08-09] MEDS: KETOROLAC TROMETHAMINE 15 MG/ML VIAL IV SCH ×2 (16:29→21:16)
[2019-08-09] MEDS ORDERED: DiphenhydrAMINE HCL 50 MG/ML VIAL IV PRN (18:02)
--- NOTE | 2019-08-09 18:44 | Consultation Report ---
DATE OF CONSULTATION: 08/09/2019 REASON FOR THE CONSULT: Urinary retention. HISTORY OF PRESENTATION: The patient is a 64-year-old female status post left total knee replacement on 08/07/2019 who postoperatively has been having difficulty voiding. Yesterday, she voided small amounts, but then was catheterized for 1500 mL with straight catheterization. She was subsequently again had trouble voiding and was catheterized today for 800 mL and currently has over 500 mL in her bladder. The patient also has been having some constipation; been taking a fair amount of pain medication for her knee and is having significant knee pain with difficulty with significant ambulation. The patient denies any previous problems with urinary retention. She denies stress incontinence. She has no problems with urinary tract infections and she has no current dysuria. ALLERGIES: PENICILLIN AND CHLORHEXIDINE. HOME MEDICATIONS: Norvasc, Lipitor, Celebrex, Jardiance, fluoxetine, imipramine, metoprolol XL, naproxen, omeprazole, and Dyazide. PAST MEDICAL HISTORY: Lyme disease, hyperlipidemia, hypertension, osteoarthritis, tinnitus, type 2 diabetes and GERD. PAST SURGICAL HISTORY: Significant for cardiac catheterization, history of total right knee replacement, history of , history of colonoscopy, history of oophorectomy, history of tonsillectomy and history of total hysterectomy. PHYSICAL EXAMINATION: HEENT: Unremarkable. RESPIRATORY: She has no respiratory distress. She has no significant pedal edema. SKIN: Normal color with normal turgor. No obvious lymphadenopathy of the cervical region. ABDOMEN: GENITOURINARY: I did not do a exam. EXTREMITIES: She has a presence of scar in the total knee replacement. Right extremity is unremarkable. NEUROLOGIC: She is alert and oriented without any focal sensory deficits. ASSESSMENT: Urinary retention. PLAN: Place Moran catheter for bladder rest. Urine culture will be sent and I have ordered this. She is going to be started on antibiotics per orthopedics and will call on Monday to set up a voiding trial on Monday in our office. If any further assistance is needed please let us know.
[2019-08-09] MEDS: SULFAMETHOXAZOLE/TRIMETHOPRIM DS 800/160MG TAB PO SCH (21:11)
[2019-08-09] MEDS: IMIPRAMINE HCL 50 MG TAB PO SCH (21:12)
[2019-08-09] MEDS: SENNA 8.6 MG TAB PO SCH (21:12)
[2019-08-09] MEDS: METOPROLOL SUCC 25MG EXT REL TAB PO SCH (21:15)
[2019-08-09] MEDS: ATORVASTATIN 20 MG TAB PO SCH (21:16)
[2019-08-10] MEDS: OXYCODONE HCL IR 5 MG TAB (IMMEDIATE RELEASE) PO PRN ×2 (03:49→08:14)
[2019-08-10] MEDS: KETOROLAC TROMETHAMINE 15 MG/ML VIAL IV SCH ×2 (04:59→08:59)
[2019-08-10] MEDS: ACETAMINOPHEN 500 MG TAB PO SCH (05:00)
[2019-08-10 07:19] LABS: Basophils # (auto) 0.07 K/uL (0-0.2); Basophils % (auto) 0.9 %; Hematocrit (blood only) 28.5 % (37-47); Hemoglobin 8.7 g/dL (12.0-16.0); Immature Granulocytes # (auto) 0.01 K/uL (0.00-0.02); Immature Granulocytes % (auto) 0.1 %; Lymphocytes % (auto) 30.3 %; Mean Corpuscular Hemoglobin 22.7 pg (25-34); Mean Corpuscular Hgb Conc 30.5 g/dL (32-36); Mean Corpuscular Volume 74.4 fL (80-100); Mean Platelet Volume 9.6 fL (7.4-10.4); Monocytes # (auto) 0.82 K/uL (0.11-0.59); Monocytes % (auto) 10.3 %; Neutrophils # (auto) 4.23 K/uL (1.4-6.5); Neutrophils % (auto) 53.4 %; Platelet Count 302 K/uL (130-400); RDW Coefficient of Variation 17.3 % (11.5-14.5); RDW Standard Deviation 47.3 fL (36.4-46.3); Red Blood Count 3.83 M/uL (4.2-5.4); White Blood Count 7.93 K/uL (4.8-10.8)
[2019-08-10 07:46] LABS: RBC Morphology Unremarkable
[2019-08-10] MEDS: ASPIRIN 81 MG ECTAB PO SCH (08:09)
[2019-08-10] MEDS: DOCUSATE SODIUM 100 MG CAP PO SCH (08:09)
[2019-08-10] MEDS: FERROUS GLUCONATE 324 MG TAB PO SCH (08:09)
[2019-08-10] MEDS: FLUOXETINE HCL 10 MG CAP PO SCH (08:10)
[2019-08-10] MEDS: SULFAMETHOXAZOLE/TRIMETHOPRIM DS 800/160MG TAB PO SCH (08:10)
[2019-08-10] MEDS: PANTOprazole 40 MG TAB PO SCH (08:10)
[2019-08-10] MEDS: AMLODIPINE BESYLATE 5 MG TAB PO SCH (08:10)
[2019-08-10] MEDS: MULTIVITAMIN TAB PO SCH (08:10)
[2019-08-10] MEDS: INSULIN ASPART 100 UNITS/ML 3 ML PEN SC SCH (09:01)
--- NOTE | 2019-08-10 09:42 | Orthopedic Progress Note ---
Date of Service August 10, 2019 Assessment & Plan (1) History of total left knee replacement: POD #3 s/p Left TKA pt/ot dvt proph with SANJANA/SCD/ASA Moran catheter placed. Continue abx per urology. F/u in their office for removal Home today with therapy Admission and Anticipated Discharge Date Admission Date: August 07, 2019 Subjective patient resting in bed. Feels better. Denies CP, SOB, dizziness Physical Exam Physical Exam: Toes mobile, NVI. Calves soft, non tender. Dressing in place. Results & Data ([facility]) Vital Signs (Past 12 Hours) Vital Signs Temp Pulse Pulse Resp BP Pulse Ox 08/10/19 07:12 36.7 C 72 18 101/61 92 08/09/19 23:46 36.4 C L 72 14 118/62 99
--- NOTE | 2019-08-10 11:32 | Urology Progress Note ---
Date of Service August 10, 2019 Assessment & Plan (1) Postprocedural urinary retention: ok for d/c from urology POV pt to call Monday for voiding trial Monday Subjective pt comfortable with bassett . She is on antiobiotis . Will have her call Monday for voiding trial Monday Physical Exam Physical Exam: bassett in place Results & Data Vital Signs (Past 12 Hours) Vital Signs Temp Pulse Pulse Pulse Resp BP Pulse Ox 08/10/19 10:22 36.7 C 80 72 72 18 101/61 92 08/10/19 07:12 36.7 C 72 18 101/61 92 08/09/19 23:46 36.4 C L 72 14 118/62 99 PG Care Time/CCT Total # of Minutes Spent Total Time Spent with Patient: Total time spent is greater than 50% in coordination of care (as documented) at patient's floor/unit and/or counseling patient: Coding Level of Care Code 62415 Subseq Hosp Care Lvl 1 Diagnoses Postprocedural urinary retention N99.89; R33.8
== END 2019-08-10 12:38 | disposition home or self-care (01) | DRG 470 ==
LOC: ASU 08:27 → 3E 13:11

== ENCOUNTER 2022-03-09 07:57 | Inpatient (IN) ==
--- NOTE | 2022-03-09 08:18 | Emergency Department Note ---
Impression & Plan COVID-19, Acute hyponatremia, Aneurysm of renal artery, Abdominal pain, Colitis ED Provider Note NAME: ARLEEN SALGUERO AGE: 66 SEX: F : 1955 ARRIVES VIA: Walk-In INFORMANT: Patient, ED PROVIDER(S): Ja Mcqueen MD Chief Complaint: Shortness of breath, COVID, nausea vomiting, abdominal pain, leg pain HPI: Patient presents primarily due to concern for some shortness of breath in the setting of recent COVID illness. The patient was diagnosed with testing on Monday and began having symptoms on Monday. No recent travel or known sick contacts. The patient is vaccinated for COVID-19 denies any recent travel surgery or procedures. The patient is also concerned as she has some left-sided sharp chest pain which is been ongoing for months. The patient states it is not caused by anything in particular. Patient states that recently she has been more concerned as she has been unable to take her medications since Monday including Paxlovid therapy due to nausea and vomiting with associated abdominal pain. The patient did recently take antibiotics 1 week prior for UTI. The patient has had some increasing urinary frequency. Patient is accompanied by daughter at bedside who is also concerned and thinks that the patient may benefit from a CT scan. Patient also states that she has been having some bilateral lower extremity cramping and Pain primarily with movement. The patient is concerned about a blockage in her lower extremities as well as possible DVTs. Patient also relates that she has not seen her game bird farmer or PCP in some time due to the fact that the patient's was ill and recently . ROS: See HPI for pertinent positives and negatives. A total of 10 systems were reviewed and otherwise negative. Past medical history: See below Surgical history: See below Social history: See below Physical Exam: GENERAL: NAD, wearing a mask, non-toxic. Wearing glasses. EYE EXAM: Normal conjunctiva. PERRL, no anisocoria and EOM's grossly intact w/o pain. NECK: Supple, no nuchal rigidity, no adenopathy, non-tender. No signs of meningismus. FROM of the neck with good chin to chest and neck extension. No stridor. LUNGS: Clear to auscultation. Normal chest wall mechanics. HEART: NSR, no MRG. ABDOMEN: Abdomen soft, non-tender, normo-active bowel sounds, no masses, no rebound or guarding. BACK: No CVA TTP. SKIN: No rashes and no bruising. UPPER EXTREMITIES: Upper extremities are grossly normal. LOWER EXTREMITIES: Grossly normal, no edema. Negative Homans' sign bilaterally. Good DP pulses, well-perfused. Soft compartments neurovascular intact. NEURO EXAM: A&O x3, cranial nerves II-XII grossly intact, normal speech, moves all 4 extremities. Differential diagnoses: Reactive airway disease, pneumonia, pneumothorax, COPD, CHF, infections, cardiac ischemia, pulmonary embolism, musculoskeletal, gastrointestinal, as well as other pathologies. Course: Patient was seen and evaluated the bedside. Full history physical exam was performed. EKG interpreted by me Sinus, rate of 64, normal KS and QRS, prolonged QT, normal axis. No obvious ST elevations. New T wave inversion may be present inferiorly from comparison EKG July 17, 2019. Patient did have prior T wave version in the V3. Imaging Studies: See Below Cardiac monitoring: An order was placed for continuous cardiac monitoring. The monitor shows a rate of 67 with sinus rhythm. MDM: Patient was seen due to concern for multiple complaints primarily in the setting of recent COVID illness and nausea and vomiting. The patient did have blood work completed along with CT of the abdomen pelvis and bilateral lower extremity ultrasounds. The patient has not been in to be see her PCP or game bird farmer for many months as her was quite ill and recently . The patient was given IV fluids and antiemetics. EKG with nonspecific changes. The patient has normal white count with mild elevation of the hemoglobin of 16.7. [id number] sodium at 129. The patient was ordered IV fluids. The patient's blood work showed normal white count with mild elevation hemoglobin of 16.7. Platelet count is normal. The patient does have sodium 129 with potassium 3.3 from lab BMP. Kidney function is unremarkable albeit with prerenal azotemia. The patient was ordered additional IV fluids. AST and ALT slightly elevated the patient has no right upper quadrant pain. Patient CT abdomen pelvis does show a nonspecific colitis as well as a thrombosed renal artery aneurysm. The patient has a prior history of the renal artery aneurysm. I did speak with on-call vascular surgery who stated that until they become greater than 2.2 cm they do not require intervention and only recommends aspirin. The patient currently takes Plavix and states that she was not taking aspirin due to to having a prior history of reflux. DVT ultrasound negative. The patient's chest x-ray is negative. I did speak with the on-call hospitalist service Ami Milton PA-C and Dr. Conteh and the patient was admitted to the medicine service. Patient did reportedly have bright red blood per r ectum. The patient has an elevated hemoglobin the patient does have colitis which may be the cause of the patient's symptoms. This was conveyed to the inpatient team. Past Med/Surg History Medical History CAD (coronary artery disease) Myocardial perfusion study 08/02/19 shows evidence of prior infarct in LAD territory. Patient did not report h/o MD. GERD (gastroesophageal reflux disease) Hx of Lyme disease Hyperlipidemia Hypertension Osteoarthritis Tinnitus Type 2 diabetes mellitus Surgical History History of cardiac cath ~10yrs ago for abnormal stress test. No stents. Pt reports she was told she had a 45% blockage in one artery. History of total left knee replacement History of total right knee replacement Hx of section Hx of colonoscopy Hx of oophorectomy Hx of total hysterectomy Nausea and vomiting after administration of anesthetic agent Status post tonsillectomy and adenoidectomy (05/09/14) Family History Unknown No family history of adverse response to anesthesia Other Heart disease Stroke Social History Smoking Status: Never smoker Second Hand Exposure: No; Hx Alcohol Use: Yes (rarely) Hx Substance Use: No Preferred Language: Norwegian Communication Ability: Effective Visual Impairment: No Limitations Beliefs That Will Affect Care: None marital status: Current Living Situation: Spouse Feels Safe at Home: Yes Assistive Devices: None Allergies Allergies Allergy/AdvReac Type Severity Reaction Status Date / Time Penicillins Allergy Unknown rash Verified 02/02/21 15:50 CHLORHEXADINE Allergy Intermediate itching Uncoded 02/02/21 15:50 Home Meds Home Medications Medication Instructions Recorded Confirmed amlodipine 5 mg tablet (Norvasc) 5 mg PO QAM 07/15/19 03/09/22 atorvastatin 20 mg tablet (Lipitor) 20 mg PO PM 07/15/19 03/09/22 empagliflozin 10 mg tablet 10 mg PO QAM 07/15/19 03/09/22 (Jardiance) imipramine HCl 50 mg tablet 50 mg PO QPM 07/15/19 03/09/22 omeprazole 20 mg tablet,delayed 20 mg PO BID 07/15/19 03/09/22 release triamterene 37.5 1 cap PO QAM 07/15/19 03/09/22 mg-hydrochlorothiazide 25 mg capsule (Dyazide) celecoxib 200 mg capsule (Celebrex) 200 mg PO DAILY pain 03/09/22 03/09/22 donepezil 5 mg tablet 5 mg PO PM 03/09/22 03/09/22 ergocalciferol (vitamin D2) 1,250 50,000 unit PO WK 03/09/22 03/09/22 mcg (50,000 unit) capsule famotidine 20 mg tablet 20 mg PO BID 03/09/22 03/09/22 fluoxetine 40 mg capsule 40 mg PO DAILY 03/09/22 03/09/22 metoprolol succinate 50 mg 50 mg PO PM 03/09/22 03/09/22 tablet,extended release 24 hr nitroglycerin 0.4 mg sublingual 0.4 mg sublingual UD PRN Chest Pain 03/09/22 03/09/22 tablet Previous Rx's Medication Instructions Recorded clopidogrel 75 mg tablet 75 mg PO DAILY #90 tabs 01/11/22 Results & Data (ED) Vital Signs Vital Signs - 24 hr 03/09/22 08:01 03/09/22 08:30 03/09/22 11:03 Temperature 36.4 C L Temperature Source Oral Pulse Rate 64 Pulse Rate [Apical] 65 62 Pulse Rhythm Regular Pulse Rhythm [Apical] Regular Pulse Strength Normal Respiratory Rate 20 16 15 Respiratory Effort / Characteristics Non-Labored Spontaneous Respiratory Depth Normal Respiratory Pattern Regular Blood Pressure 132/71 Blood Pressure [Left Arm] 145/86 H Blood Pressure Mean 91 Blood Pressure Mean [Left Arm] 105 Pulse Oximetry 96 96 99 Oxygen Delivery Method Room Air Room Air Room Air Sepsis Recent Fever Within 48 Hours No Sepsis New/Unexplained Change in Mental Status N/A Sepsis Action Taken by Nursing No Action Required 03/09/22 13:00 Temperature Temperature Source Pulse Rate Pulse Rate [Apical] 65 Pulse Rhythm Pulse Rhythm [Apical] Pulse Strength Respiratory Rate 18 Respiratory Effort / Characteristics Respiratory Depth Respiratory Pattern Blood Pressure Blood Pressure [Left Arm] Blood Pressure Mean Blood Pressure Mean [Left Arm] Pulse Oximetry 95 Oxygen Delivery Method Sepsis Recent Fever Within 48 Hours Sepsis New/Unexplained Change in Mental Status Sepsis Action Taken by Shelter Medications Current Medication List: was personally reviewed by me Laboratory Data Attestation: I reviewed the patient's lab results. Result diagrams: 03/09/22 09:00 03/09/22 09:00 Lab Results 03/09/22 03/09/22 03/09/22 Range/Units 09:00 09:00 09:00 WBC 7.97 (4.8-10.8) K/ul RBC 6.14 H (3.93-5.22) M/uL Hgb 16.7 H (12.0-16.0) g/dl POC Hgb (12.0-16.0) g/dl Hct 47.8 H (34.1-44.9) % POC Hct (37-47) % MCV 77.9 L (80.0-100.0) fL MCH 27.2 (25.0-34.0) pg MCHC 34.9 (32.0-36.0) g/dL RDW Std Deviation 39.4 (36.4-46.3) fL RDW Coeff of Contreras 14.4 (11.5-14.5) % Plt Count 225 (130-400) K/uL MPV 11.1 (9.4-12.3) fL Immature Gran % (Auto) 0.1 % Neut % (Auto) 86.3 % Lymph % (Auto) 8.2 % Winn % (Auto) 5.1 % Eos % (Auto) 0.0 % Baso % (Auto) 0.3 % Neut # (Auto) 6.88 H (1.4-6.5) K/uL Lymph # (Auto) 0.65 L (1.2-3.4) K/uL Winn # (Auto) 0.41 (0.24-0.82) K/uL Eos # (Auto) 0.00 (0-0.50) K/uL Baso # (Auto) 0.02 (0-0.2) K/uL Immature Gran # (Auto) 0.01 (0.00-0.02) K/uL POC Sodium (135-144) mmol/L Sodium 129 L (136-145) mmol/L POC Potassium (3.3-5.0) mmol/L Potassium 3.3 L (3.5-5.1) mmol/L POC Chloride (101-112) mmol/L Chloride 90 L (98-107) mmol/L Carbon Dioxide 26 (21-32) mmol/L POC Total CO2 (24-31) mmol/L Anion Gap 13 H (3-11) POC Anion Gap (16-25) mmol/L POC BUN (7-18) mg/dl BUN 16 (6-23) mg/dl Creatinine 0.64 (0.6-1.2) mg/dl POC Creatinine (0.6-1.3) mg/dl Est Cr Clr Drug Dosing 86.2 ml/min Est GFR ( Amer) 107.8 ml/min Est GFR (Non-Af Amer) 93.0 ml/min BUN/Creatinine Ratio 25.0 H (10-20) Glucose 148 H (70-99(Fasting)) mg/dl POC Glucose (other) (70-99) mg/dl Osmolality (280-300) mOsm/kg Calcium 9.2 (8.5-10.1) mg/dl POC Ioniz Calcium Justin (1.12-1.32) mmol/l Phosphorus 3.9 (2.5-4.9) mg/dl Magnesium 2.1 (1.7-2.4) mg/dl Total Bilirubin 0.8 (0.2-1.0) mg/dl AST 77 H (13-39) U/L ALT 76 H (7-52) U/L Alkaline Phosphatase 68 (34-104) U/L Troponin I High Sens 5.4 (0-14) pg/ml Total Protein 7.3 (6.0-8.3) gm/dl Albumin 4.6 (3.4-5.0) gm/dl Globulin 2.7 (2.5-4.0) gm/dl Albumin/Globulin Ratio 1.7 (0.9-2) Urine Color Urine Appearance (Clear) Urine pH (4.5-7.5) Ur Specific Sellers (1.000-1.030) Urine Protein (Negative) Urine Glucose (UA) (Negative) Urine Ketones (Negative) Urine Blood (Negative) Urine Nitrite (Negative) Urine Bilirubin (Negative) Urine Urobilinogen (Negative) Ur Leukocyte Esterase (Negative) SARS-CoV-2, RNA, NAAT (NEGATIVE) 03/09/22 03/09/22 03/09/22 Range/Units 09:00 09:05 Unknown WBC (4.8-10.8) K/ul RBC (3.93-5.22) M/uL Hgb (12.0-16.0) g/dl POC Hgb 18.0 H (12.0-16.0) g/dl Hct (34.1-44.9) % POC Hct 53 H (37-47) % MCV (80.0-100.0) fL MCH (25.0-34.0) pg MCHC (32.0-36.0) g/dL RDW Std Deviation (36.4-46.3) fL RDW Coeff of Contreras (11.5-14.5) % Plt Count (130-400) K/uL MPV (9.4-12.3) fL Immature Gran % (Auto) % Neut % (Auto) % Lymph % (Auto) % Winn % (Auto) % Eos % (Auto) % Baso % (Auto) % Neut # (Auto) (1.4-6.5) K/uL Lymph # (Auto) (1.2-3.4) K/uL Winn # (Auto) (0.24-0.82) K/uL Eos # (Auto) (0-0.50) K/uL Baso # (Auto) (0-0.2) K/uL Immature Gran # (Auto) (0.00-0.02) K/uL POC Sodium 129 L (135-144) mmol/L Sodium (136-145) mmol/L POC Potassium 3.1 L (3.3-5.0) mmol/L Potassium (3.5-5.1) mmol/L POC Chloride 90 L (101-112) mmol/L Chloride (98-107) mmol/L Carbon Dioxide (21-32) mmol/L POC Total CO2 25 (24-31) mmol/L Anion Gap (3-11) POC Anion Gap 18.0 (16-25) mmol/L POC BUN 18 (7-18) mg/dl BUN (6-23) mg/dl Creatinine (0.6-1.2) mg/dl POC Creatinine 0.5 L (0.6-1.3) mg/dl Est Cr Clr Drug Dosing ml/min Est GFR ( Amer) ml/min Est GFR (Non-Af Amer) ml/min BUN/Creatinine Ratio (10-20) Glucose (70-99(Fasting)) mg/dl POC Glucose (other) 161 H (70-99) mg/dl Osmolality 270 L (280-300) mOsm/kg Calcium (8.5-10.1) mg/dl POC Ioniz Calcium Justin 1.01 L (1.12-1.32) mmol/l Phosphorus (2.5-4.9) mg/dl Magnesium (1.7-2.4) mg/dl Total Bilirubin (0.2-1.0) mg/dl AST (13-39) U/L ALT (7-52) U/L Alkaline Phosphatase (34-104) U/L Troponin I High Sens (0-14) pg/ml Total Protein (6.0-8.3) gm/dl Albumin (3.4-5.0) gm/dl Globulin (2.5-4.0) gm/dl Albumin/Globulin Ratio (0.9-2) Urine Color Yellow Urine Appearance Clear (Clear) Urine pH 7.0 (4.5-7.5) Ur Specific Sellers 1.035 H (1.000-1.030) Urine Protein Negative (Negative) Urine Glucose (UA) Negative (Negative) Urine Ketones Trace H (Negative) Urine Blood Negative (Negative) Urine Nitrite Negative (Negative) Urine Bilirubin Negative (Negative) Urine Urobilinogen Negative (Negative) Ur Leukocyte Esterase Negative (Negative) SARS-CoV-2, RNA, NAAT (NEGATIVE) 03/09/22 Range/Units Unknown WBC (4.8-10.8) K/ul RBC (3.93-5.22) M/uL Hgb (12.0-16.0) g/dl POC Hgb (12.0-16.0) g/dl Hct (34.1-44.9) % POC Hct (37-47) % MCV (80.0-100.0) fL MCH (25.0-34.0) pg MCHC (32.0-36.0) g/dL RDW Std Deviation (36.4-46.3) fL RDW Coeff of Contreras (11.5-14.5) % Plt Count (130-400) K/uL MPV (9.4-12.3) fL Immature Gran % (Auto) % Neut % (Auto) % Lymph % (Auto) % Winn % (Auto) % Eos % (Auto) % Baso % (Auto) % Neut # (Auto) (1.4-6.5) K/uL Lymph # (Auto) (1.2-3.4) K/uL Winn # (Auto) (0.24-0.82) K/uL Eos # (Auto) (0-0.50) K/uL Baso # (Auto) (0-0.2) K/uL Immature Gran # (Auto) (0.00-0.02) K/uL POC Sodium (135-144) mmol/L Sodium (136-145) mmol/L POC Potassium (3.3-5.0) mmol/L Potassium (3.5-5.1) mmol/L POC Chloride (101-112) mmol/L Chloride (98-107) mmol/L Carbon Dioxide (21-32) mmol/L POC Total CO2 (24-31) mmol/L Anion Gap (3-11) POC Anion Gap (16-25) mmol/L POC BUN (7-18) mg/dl BUN (6-23) mg/dl Creatinine (0.6-1.2) mg/dl POC Creatinine (0.6-1.3) mg/dl Est Cr Clr Drug Dosing ml/min Est GFR ( Amer) ml/min Est GFR (Non-Af Amer) ml/min BUN/Creatinine Ratio (10-20) Glucose (70-99(Fasting)) mg/dl POC Glucose (other) (70-99) mg/dl Osmolality (280-300) mOsm/kg Calcium (8.5-10.1) mg/dl POC Ioniz Calcium Justin (1.12-1.32) mmol/l Phosphorus (2.5-4.9) mg/dl Magnesium (1.7-2.4) mg/dl Total Bilirubin (0.2-1.0) mg/dl AST (13-39) U/L ALT (7-52) U/L Alkaline Phosphatase (34-104) U/L Troponin I High Sens (0-14) pg/ml Total Protein (6.0-8.3) gm/dl Albumin (3.4-5.0) gm/dl Globulin (2.5-4.0) gm/dl Albumin/Globulin Ratio (0.9-2) Urine Color Urine Appearance (Clear) Urine pH (4.5-7.5) Ur Specific Sellers (1.000-1.030) Urine Protein (Negative) Urine Glucose (UA) (Negative) Urine Ketones (Negative) Urine Blood (Negative) Urine Nitrite (Negative) Urine Bilirubin (Negative) Urine Urobilinogen (Negative) Ur Leukocyte Esterase (Negative) SARS-CoV-2, RNA, NAAT POSITIVE A* (NEGATIVE) Administered Medications Discontinued Medications Sodium Chloride (Nss 1000ml) 1,000 mls @ 999 mls/hr IV .Q1H1M MARIAN Stop: 03/09/22 09:30 Last Infusion: 03/09/22 11:21 Dose: 0 mls/hr Documented By: Admin: 03/09/22 09:12 Dose: 999 mls/hr Documented By: LIZZIE Sodium Chloride (Nss 1000ml) 1,000 mls @ 999 mls/hr IV .Q1H1M ONE Stop: 03/09/22 11:58 Last Infusion: 03/09/22 13:14 Dose: 0 mls/hr Documented By: Admin: 03/09/22 11:21 Dose: 999 mls/hr Documented By: LIZZIE Potassium Chloride (K Rakesh / Wtr) 10 meq in 100 mls @ 100 mls/hr IV Q1H MARIAN; Protocol Stop: 03/09/22 14:44 Last Admin: 03/09/22 14:05 Dose: 100 mls/hr Documented By: Infusion: 03/09/22 13:14 Dose: 0 mls/hr Documented By: Admin: 03/09/22 12:51 Dose: 100 mls/hr Documented By: LIZZIE Ioversol (Ioversol 350 Mg 100ml Prefilled Syringe) 95 ml IV ONCE ONE Stop: 03/09/22 09:43 Last Admin: 03/09/22 09:30 Dose: 95 ml Documented By: FERMÍN Metoclopramide HCl (Metoclopramide Hcl Inj 5 Mg/Ml 2 Ml Vial) 10 mg IV NOW STA Stop: 03/09/22 12:25 Last Admin: 03/09/22 12:41 Dose: 10 mg Documented By: KV Ondansetron HCl (Ondansetron Inj 2 Mg/Ml 2 Ml Vial) 4 mg IV NOW STA Stop: 03/09/22 09:26 Last Admin: 03/09/22 09:47 Dose: 4 mg Documented By: KV Imaging Data Radiologist's Impression: Abdomen/Pelvis CT 03/09/22 08:30 CT SCAN OF THE ABDOMEN AND PELVIS WITH IV CONTRAST CLINICAL HISTORY: Nausea and vomiting. Lower abdominal pain. COMPARISON STUDY: Abdominal ultrasound dated 05/12/2014 TECHNIQUE: Following the IV administration of 95 cc of Optiray 350, CT scan of the abdomen and pelvis is performed from the lung bases to the proximal femora. Images are reviewed in the axial, sagittal, and coronal planes. IV contrast was administered without complication. A dose lowering technique was utilized adhering to the principles of ALARA. CT DOSE: 396.36 mGy.cm FINDINGS: Lung bases: The heart is mildly enlarged and without pericardial effusion. The lung bases are clear noting dependent atelectasis. There is a small hiatal hernia. Liver: The contrast-enhanced liver is normal in size, contour, and attenuation. There is no intrahepatic biliary ductal dilatation. The hepatic veins and portal veins are patent. Gallbladder: Unremarkable. Spleen: Normal in size and attenuation. A 1.6 cm peripherally calcified cyst is incidentally noted anteriorly. Pancreas: Unremarkable. Adrenal glands: Unremarkable. Kidneys: The contrast enhanced kidneys are normal in size and without hydronephrosis. The kidneys enhance symmetrically. 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 Renal sinus cysts are seen on the left. Abdominal vasculature: The abdominal aorta is normal in course and caliber noting moderate atherosclerotic calcification. Bowel: Liquid stool is seen throughout the colon. There is a long segment of colonic wall thickening and edema with surrounding inflammation and fluid involving the left colon. This extends from the splenic flexure to the distal descending colon and is consistent with a nonspecific colitis. There is no bowel obstruction. The appendix is not visualized. Peritoneum: There is no intraperitoneal free air or abdominal ascites. There is a small fat-containing umbilical hernia. Lymphadenopathy: None. Pelvic viscera: The bladder is normal as visualized. The uterus is surgically absent. No adnexal lesion is seen. Skeletal structures: The skeletal structures are osteopenic. There is mild lumbosacral spondylosis. No lytic or blastic lesions are seen. IMPRESSION: 1. Findings are consistent with a nonspecific colitis of the left colon. Clinical correlation will be required. 2. No bowel obstruction. 3. 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 4. Small hiatal hernia. 5. Additional findings as above. ACT 112: Negative or not required by law. Electronically signed by: Angel Cash M.D. 03/09/2022 9:57 AM Chest X-Ray 03/09/22 08:30 SINGLE VIEW CHEST CLINICAL HISTORY: Dyspnea FINDINGS: An AP, portable, upright chest radiograph is compared to study dated 07/17/2019. The cardiomediastinal silhouette is unremarkable. The lungs and pleural spaces are clear noting mild bibasilar atelectasis. No pneumothorax is seen. The skeletal structures are osteopenic. The bony thorax is grossly intact. IMPRESSION: No active disease in the chest. ACT 112: Negative or not required by law. Electronically signed by: Angel Cash M.D. 03/09/2022 9:03 AM Venous Doppler Study 03/09/22 08:30 BILATERAL LOWER EXTREMITY VENOUS DOPPLER CLINICAL HISTORY: Bilateral calf pain. COMPARISON STUDY: No previous studies for comparison. TECHNIQUE: Sonography of the deep venous system of the bilateral lower extremities was performed. Compression and augmentation were evaluated. FINDINGS: The bilateral common femoral, superficial femoral and popliteal veins were compressible. Augmentation was normal. Flow was shown within the deep calf vessels. IMPRESSION: No evidence of deep venous thrombus within the bilateral lower extremities. ACT 112: Negative or not required by law. Electronically signed by: Gianni Rudolph M.D. 03/09/2022 11:32 AM Discharge Plan Visit Data Chief Complaint: Flu Like Symptoms Stated Complaint: covid+, sob, nausea, weakness, fever 99.5, ED Provider: Ja Mcqueen Discharge Problem: COVID-19, Acute hyponatremia, Aneurysm of renal artery, Abdominal pain, Colitis Patient Disposition: Admitted As Inpatient Forms Stand Alone Forms: [facility] Prescriptions Prescriptions: No Action clopidogrel 75 mg tablet 75 mg PO DAILY Qty: 90 0RF imipramine HCl 50 mg Tablet 50 mg PO QPM atorvastatin [Lipitor] 20 mg Tablet 20 mg PO PM amlodipine [Norvasc] 5 mg Tablet 5 mg PO QAM triamterene-hydrochlorothiazid [Dyazide] 37.5-25 mg Capsule 1 cap PO QAM omeprazole 20 mg Tablet,Delayed Release (Dr/Ec) 20 mg PO BID Jardiance 10 mg Tablet 10 mg PO QAM fluoxetine 40 mg capsule 40 mg PO DAILY nitroglycerin 0.4 mg tablet, sublingual 0.4 mg sublingual UD PRN (Reason: Chest Pain) donepezil 5 mg tablet 5 mg PO PM ergocalciferol (vitamin D2) 1,250 mcg (50,000 unit) capsule 50,000 unit PO WK Rx Instructions: takes on fridays celecoxib [Celebrex] 200 mg capsule 200 mg PO DAILY famotidine 20 mg tablet 20 mg PO BID metoprolol succinate 50 mg tablet extended release 24 hr 50 mg PO PM Referrals Referrals: Soraya Payne [Primary Care Provider] -
[2022-03-09] MEDS ORDERED: SODIUM CHLORIDE 0.9% 1000ML 1,000 ML IV SCH ×2 (08:30→16:46)
--- NOTE | 2022-03-09 09:04 | XRay Report ---
SINGLE VIEW CHEST CLINICAL HISTORY: Dyspnea FINDINGS: An AP, portable, upright chest radiograph is compared to study dated 07/17/2019. The cardiom ediastinal silhouette is unremarkable. The lungs and pleural spaces are clear noting mild bibasilar a telectasis. No pneumothorax is seen. The skeletal structures are osteopenic. The bony thorax is gross ly intact. IMPRESSION: No active disease in the chest. ACT 112: Negative or not required by law. Electronically signed by: Angel Cash M.D. 03/09/2022 9:03 AM
[2022-03-09 09:18] LABS: iSTAT Creatinine 0.5 mg/dl (0.6-1.3); iSTAT Ionized Calcium 1.01 mmol/l (1.12-1.32); iSTAT Potassium 3.1 mmol/L (3.3-5.0)
[2022-03-09 09:20] LABS: Basophils # (auto) 0.02 K/uL (0-0.2); Basophils % (auto) 0.3 %; Hematocrit (blood only) 47.8 % (34.1-44.9); Hemoglobin 16.7 g/dl (12.0-16.0); Immature Granulocytes # (auto) 0.01 K/uL (0.00-0.02); Immature Granulocytes % (auto) 0.1 %; Lymphocytes # (auto) 0.65 K/uL (1.2-3.4); Lymphocytes % (auto) 8.2 %; Mean Corpuscular Hemoglobin 27.2 pg (25.0-34.0); Mean Corpuscular Hgb Conc 34.9 g/dL (32.0-36.0); Mean Corpuscular Volume 77.9 fL (80.0-100.0); Mean Platelet Volume 11.1 fL (9.4-12.3); Monocytes # (auto) 0.41 K/uL (0.24-0.82); Monocytes % (auto) 5.1 %; Neutrophils # (auto) 6.88 K/uL (1.4-6.5); Neutrophils % (auto) 86.3 %; Platelet Count 225 K/uL (130-400); RDW Coefficient of Variation 14.4 % (11.5-14.5); RDW Standard Deviation 39.4 fL (36.4-46.3); Red Blood Count 6.14 M/uL (3.93-5.22); White Blood Count 7.97 K/ul (4.8-10.8)
[2022-03-09] MEDS ORDERED: ONDANSETRON INJ 2 MG/ML 2 ML VIAL IV STA (09:25)
[2022-03-09] MEDS ORDERED: IOVERSOL 350 MG 100mL Prefilled Syringe IV ONE (09:42)
[2022-03-09 09:49] LABS: Albumin Globulin Ratio 1.7 (0.9-2); Albumin Level 4.6 gm/dl (3.4-5.0); Bilirubin,Total 0.8 mg/dl (0.2-1.0); Calcium 9.2 mg/dl (8.5-10.1); Creatinine Clr Calc Pharmacy 86.2 ml/min; Est GFR (African American) 107.8 ml/min; Globulin 2.7 gm/dl (2.5-4.0); Potassium 3.3 mmol/L (3.5-5.1); Total Protein 7.3 gm/dl (6.0-8.3); Troponin I High Sensitivity 5.4 pg/ml (0-14)
--- NOTE | 2022-03-09 09:58 | CT Scan Report ---
CT SCAN OF THE ABDOMEN AND PELVIS WITH IV CONTRAST CLINICAL HISTORY: Nausea and vomiting. Lower abdominal pain. COMPARISON STUDY: Abdominal ultrasound dated 05/12/2014 TECHNIQUE: Following the IV administration of 95 cc of Optiray 350, CT scan of the abdomen and pelvi s is performed from the lung bases to the proximal femora. Images are reviewed in the axial, sagittal , and coronal planes. IV contrast was administered without complication. A dose lowering technique wa s utilized adhering to the principles of ALARA. CT DOSE: 396.36 mGy.cm FINDINGS: Lung bases: The heart is mildly enlarged and without pericardial effusion. The lung bases are clear n oting dependent atelectasis. There is a small hiatal hernia. Liver: The contrast-enhanced liver is normal in size, contour, and attenuation. There is no intrahepa tic biliary ductal dilatation. The hepatic veins and portal veins are patent. Gallbladder: Unremarkable. Spleen: Normal in size and attenuation. A 1.6 cm peripherally calcified cyst is incidentally noted an teriorly. Pancreas: Unremarkable. Adrenal glands: Unremarkable. Kidneys: The contrast enhanced kidneys are normal in size and without hydronephrosis. The kidneys enh ance symmetrically. 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 Renal sinus cysts are seen on the left. Abdominal vasculature: The abdominal aorta is normal in course and caliber noting moderate atheroscle rotic calcification. Bowel: Liquid stool is seen throughout the colon. There is a long segment of colonic wall thickening and edema with surrounding inflammation and fluid involving the left colon. This extends from the spl enic flexure to the distal descending colon and is consistent with a nonspecific colitis. There is no bowel obstruction. The appendix is not visualized. Peritoneum: There is no intraperitoneal free air or abdominal ascites. There is a small fat-containin g umbilical hernia. Lymphadenopathy: None. Pelvic viscera: The bladder is normal as visualized. The uterus is surgically absent. No adnexal lesi on is seen. Skeletal structures: The skeletal structures are osteopenic. There is mild lumbosacral spondylosis. N o lytic or blastic lesions are seen. IMPRESSION: 1. Findings are consistent with a nonspecific colitis of the left colon. Clinical correlation will be required. 2. No bowel obstruction. 3. 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 4. Small hiatal hernia. 5. Additional findings as above. ACT 112: Negative or not required by law. Electronically signed by: Angel Cash M.D. 03/09/2022 9:57 AM
[2022-03-09 10:18] LABS: Appearance Urine Clear (Clear); Bilirubin Urine Negative (Negative); Blood Urine Negative (Negative); Color Urine Yellow; Glucose Urine UA Negative (Negative); Ketones Urine Trace (Negative); Leukocyte Esterase Urine Negative (Negative); Nitrite Urine Negative (Negative); Protein Urine Negative (Negative); Specific Gravity Urine 1.035 (1.000-1.030); Urobilinogen Urine Negative (Negative)
[2022-03-09 10:18] LABS: Magnesium 2.1 mg/dl (1.7-2.4); Phosphorus 3.9 mg/dl (2.5-4.9)
[2022-03-09] MEDS ORDERED: SODIUM CHLORIDE 0.9% 1000ML 1,000 ML IV ONE (10:58)
--- NOTE | 2022-03-09 11:07 | Electrocardiogram Report ---
Test Reason : Blood Pressure : / mmHG Vent. Rate : 064 BPM Atrial Rate : 064 BPM P-R Int : 136 ms QRS Dur : 078 ms QT Int : 496 ms P-R-T Axes : -21 -08 037 degrees QTc Int : 511 ms Sinus rhythm with Premature atrial complexes Voltage criteria for left ventricular hypertrophy Nonspecific T wave abnormality Prolonged QT Abnormal ECG When compared with ECG of 17-JUL-2019 14:04, Premature atrial complexes are now Present Nonspecific T wave abnormality now evident in Inferior leads Confirmed by Narciso Cortez ([id number]) on 03/09/2022 11:06:57 AM Referred By: REFERRED SELF Confirmed By:Jose Cortez
--- NOTE | 2022-03-09 11:33 | Ultrasound Report ---
BILATERAL LOWER EXTREMITY VENOUS DOPPLER CLINICAL HISTORY: Bilateral calf pain. COMPARISON STUDY: No previous studies for comparison. TECHNIQUE: Sonography of the deep venous system of the bilateral lower extremities was performed. Co mpression and augmentation were evaluated. FINDINGS: The bilateral common femoral, superficial femoral and popliteal veins were compressible. A ugmentation was normal. Flow was shown within the deep calf vessels. IMPRESSION: No evidence of deep venous thrombus within the bilateral lower extremities. ACT 112: Negative or not required by law. Electronically signed by: Gianni Rudolph M.D. 03/09/2022 11:32 AM
[2022-03-09] MEDS ORDERED: METOCLOPRAMIDE HCL INJ 5 MG/ML 2 ML VIAL IV STA (12:24)
[2022-03-09] MEDS: POTASSIUM CHLORIDE / WTR 10 MEQ/100 ML PLCT IV SCH ×2 (12:51→14:05)
--- NOTE | 2022-03-09 12:59 | History & Physical Report ---
Date of Service March 09, 2022 Assessment & Plan (1) COVID-19: Plan: Patient is 66 y/o F with PMH HTN, HLD, DM II, GERD, renal artery aneurysm, depression/anxiety, presented to ER with onset of GAMBLE, body aches, vomiting greater than 10 times, nasal congestion, clear productive cough 3 days ago. SOB with exertion. Having chills. + home COVID-19 test on 03/07/22. Took Paxlovid x two days In ER afebrile, no tachycardia, no hypoxia. + COVID-19 RNA CXR: no infiltrate Airborne isolation Incentive spirometry, flutter valve CBC, CMP in am Will hold on further Paxlovid given pt's current GI symptoms (2) Colitis: Plan: N/V x 3 days. Today onset of diarrhea ?Bloody diarrhea No leukocytosis. Hgb: 16 CT Abd/pelvis: Findings are consistent with a nonspecific colitis of the left colon. No bowel obstruction In ER given 2L NSS Hemoccult stool Stool culture, C-diff pending Start Flagyl, Rocephin (given pt's allergies and QTc prolongation) Repeat Hgb stable at 16 Hold Celebrex Change oral home PPI to IV PPI (3) Chest pain: Plan: Reported chronic intermittent CP 08/07/2019: Nuclear stress test which suggest the possibility of an old apical myocardial infarction. However, the gated images on that stress test noted normal left ventricular systolic function including the apex. Suspect that this perfusion defect was related to breast attenuation.08/2019 Echocardiogram: normal LV systolic function and regional wall motion Initial troponin negative. No acute EKG ST elevation Repeat troponin If increasing will order echo (4) Leg pain: Plan: Patient reported ongoing bilateral lower extremity cramping Venous Doppler: Negative for DVT Monitor (5) Prolonged QT interval: Plan: QTc: 511 Hold QTC prolonging agents (6) Hyponatremia: Plan: Na: 129 Likely secondary to GI losses In ER given to L NSS Urine sodium, urine osmolality, urine osmolality pending Gentle IVF Repeat BMP this afternoon (7) Hypokalemia: Plan: K: 3.3. Likely secondary to vomiting diarrhea In ER given 2K riders Replace and monitor (8) Type 2 diabetes mellitus: Plan: Unknown A1c Hold Jardiance NovoLog sliding scale with correction for now, may need to tighten parameters (9) Hypertension: Plan: Continue amlodipine, metoprolol succinate Hold triamterene/HCTZ (10) Hyperlipidemia: Plan: Continue atorvastatin (11) GERD (gastroesophageal reflux disease): Plan: Change oral home PPI to IV PPI Continue H2 fartun (12) Depression with anxiety: Plan: Patient with additional stressors recently with recent loss of her after prolonged illness Patient had reported memory issues and requested PCP to place her on donepezil Hold home fluoxetine, donepezil with current prolonged QTc (13) Tinnitus: Plan: Hold imipramine with prolonged QTC DVT Prophylaxis -Initial dose of Lovenox SQ, however will switch to SCDs given possible hematochezia Full code as per discussion with pt, however reports would not want on prolonged life support if poor prognosis Follows with Dr Payne for routine care Pt was seen and care coordinated with Dr Conteh. See addendum History of Present Illness Chief Complaint: Multiple medical complaints Primary Care Provider: Soraya Payne Patient is 66 y/o F with PMH HTN, HLD, DM II, GERD, renal artery aneurysm, depression/anxiety, presented to ER with multiple medical complaints. States 3 days ago started with GAMBLE, body aches, vomiting greater than 10 times over past couple days. Also c/o nasal congestion, clear productive cough. SOB with exertion. Having chills. Was not taking temperature at home. She took home COVID-19 test and was positive on 03/07/22. She was started on Paxlovid and reports took two days and stopped secondary to nausea. She states left chest stabbing pain that is intermittent occurs once daily when sitting and sometimes with associated palpitations past couple of days. This also occurs multiple times a week, worse when feeling anxious. Follows with Dr Ramsey. Reports was constipated past 2 days until today. Yesterday started with lower abdominal pain cramping. Today started with watery diarrhea. Reddish color diarrhea today. 5 episodes diarrhea today. Couple weeks ago had urinary frequency and was given Keflex 500mg BID x 5 days with resolution of symptoms. Did not have formal UA completed. No dysuria,hematuria. States for months been having BLE cramping. No ill contacts. Had 2 COVID-19 vaccines plus booster. Last shot in 2020. H/O colonoscopy in past in [place], patient thinks 3-4 years ago and reports it was normal. Denies syncope, vision changes, neck pain, SOB, orthopnea, hemoptysis, sore throat, choking, otalgia, paresthesias, extremity weakness, extremity edema, rashes. Allergies Allergy/AdvReac Type Severity Reaction Status Date / Time Penicillins Allergy Unknown rash Verified 02/02/21 15:50 chlorhexidine Allergy itching Verified 03/10/22 08:47 Home Medications Medication Instructions Recorded Confirmed Type amlodipine 5 mg tablet (Norvasc) 5 mg PO QAM 07/15/19 03/09/22 History atorvastatin 20 mg tablet (Lipitor) 20 mg PO PM 07/15/19 03/09/22 History empagliflozin 10 mg tablet 10 mg PO QAM 07/15/19 03/09/22 History (Jardiance) omeprazole 20 mg tablet,delayed 20 mg PO BID 07/15/19 03/09/22 History release triamterene 37.5 1 cap PO QAM 07/15/19 03/09/22 History mg-hydrochlorothiazide 25 mg capsule (Dyazide) donepezil 5 mg tablet 5 mg PO PM 03/09/22 03/09/22 History ergocalciferol (vitamin D2) 1,250 50,000 unit PO WK 03/09/22 03/09/22 History mcg (50,000 unit) capsule famotidine 20 mg tablet 20 mg PO BID 03/09/22 03/09/22 History fluoxetine 40 mg capsule 40 mg PO DAILY 03/09/22 03/09/22 History metoprolol succinate 50 mg 50 mg PO PM 03/09/22 03/09/22 History tablet,extended release 24 hr nitroglycerin 0.4 mg sublingual 0.4 mg sublingual UD PRN Chest Pain 03/09/22 03/09/22 History tablet cefuroxime axetil 500 mg tablet 500 mg PO Q12H #7 tabs 03/11/22 Rx cholestyramine-aspartame 4 gram 2 g PO BID@1000,2200 PRN diarrhea 03/11/22 Rx oral powder for susp in a packet #60 ea (Prevalite) lactobacillus combo no.11 15 1 cap PO DAILY #7 caps 03/11/22 Rx billion cell sprinkle capsule (Probiotic) metronidazole 500 mg tablet 500 mg PO Q8H #10 tabs 03/11/22 Rx Past Med/Surg History Medical History (Updated 03/10/22 @ 22:27 by Thad Conteh MD) CAD (coronary artery disease) Myocardial perfusion study 08/02/19 shows evidence of prior infarct in LAD territory. Patient did not report h/o [place]. Depression with anxiety GERD (gastroesophageal reflux disease) GERD (gastroesophageal reflux disease) Hx of Lyme disease Hyperlipidemia Hypertension Osteoarthritis Tinnitus Type 2 diabetes mellitus Surgical History History of cardiac cath ~10yrs ago for abnormal stress test. No stents. Pt reports she was told she had a 45% blockage in one artery. History of total left knee replacement History of total right knee replacement Hx of section Hx of colonoscopy Hx of oophorectomy Hx of total hysterectomy Nausea and vomiting after administration of anesthetic agent Status post tonsillectomy and adenoidectomy (05/09/14) Family History Unknown No family history of adverse response to anesthesia Other Heart disease Stroke Social History Smoking Status: Never smoker Second Hand Exposure: No; Hx Alcohol Use: No Hx Substance Use: No Preferred Language: Polish Communication Ability: Effective Visual Impairment: No Limitations Licensed Massage Practitioner Required: No Beliefs That Will Affect Care: None marital status: Current Living Situation: Alone Feels Safe at Home: Yes Assistive Devices: None Review of Systems Review of Systems: All systems reviewed & are unremarkable except as noted in HPI & below Physical Exam Physical Exam: General: no distress, WDWN Head: normocephalic, atraumatic Eyes: PERRL, EOM's intact, conjunctiva non-injected, anicteric ENT: normal inspection external ears, nose, mucous membranes dry Neck: supple, trachea midline Lungs: clear, no respiratory distress, no wheezing/rhonchi/rales CV: RRR, no murmur, no JVD, no pretibial edema Abd: normal BS, soft,+tenderness to palpation RLQ, LLQ without rebound or guarding Ext: no cyanosis, no calf tenderness, no erythema Neuro: A&O x 3, no focal deficits noted, normal affect Skin: warm, dry Results & Data Results & Data ([place]) Vital Signs (Past 12 Hours) Vital Signs Temp Pulse Pulse Resp BP BP Pulse Ox 03/09/22 11:03 62 15 99 03/09/22 08:30 65 16 145/86 H 96 03/09/22 08:01 36.4 C L 64 20 132/71 96 O2 Del Method 03/09/22 11:03 Room Air 03/09/22 08:30 Room Air 03/09/22 08:01 Room Air Laboratory Results Short CBC 03/09/22 03/09/22 Range/Units 09:00 15:33 WBC 7.97 (4.8-10.8) K/ul Hgb 16.7 H 16.8 H (12.0-16.0) g/dl Hct 47.8 H 48.3 H (34.1-44.9) % Plt Count 225 (130-400) K/uL BMP 03/09/22 03/09/22 09:00 15:33 Sodium 129 L 134 L Potassium 3.3 L 3.7 Chloride 90 L 101 Carbon Dioxide 26 23 BUN 16 10 Creatinine 0.64 0.55 L Glucose 148 H 114 H Calcium 9.2 8.5 Liver Function 03/09/22 Range/Units 09:00 Total Bilirubin 0.8 (0.2-1.0) mg/dl AST 77 H (13-39) U/L ALT 76 H (7-52) U/L Alkaline Phosphatase 68 (34-104) U/L Albumin 4.6 (3.4-5.0) gm/dl Urine 03/09/22 Range/Units Unknown Urine Color Yellow Urine Appearance Clear (Clear) Urine pH 7.0 (4.5-7.5) Ur Specific [place] 1.035 H (1.000-1.030) Urine Protein Negative (Negative) Urine Glucose (UA) Negative (Negative) Diagnostic Findings Abdomen/Pelvis CT 03/09/22 08:30 CT SCAN OF THE ABDOMEN AND PELVIS WITH IV CONTRAST CLINICAL HISTORY: Nausea and vomiting. Lower abdominal pain. COMPARISON STUDY: Abdominal ultrasound dated 05/12/2014 TECHNIQUE: Following the IV administration of 95 cc of Optiray 350, CT scan of the abdomen and pelvis is performed from the lung bases to the proximal femora. Images are reviewed in the axial, sagittal, and coronal planes. IV contrast was administered without complication. A dose lowering technique was utilized adhering to the principles of ALARA. CT DOSE: 396.36 mGy.cm FINDINGS: Lung bases: The heart is mildly enlarged and without pericardial effusion. The lung bases are clear noting dependent atelectasis. There is a small hiatal hernia. Liver: The contrast-enhanced liver is normal in size, contour, and attenuation. There is no intrahepatic biliary ductal dilatation. The hepatic veins and portal veins are patent. Gallbladder: Unremarkable. Spleen: Normal in size and attenuation. A 1.6 cm peripherally calcified cyst is incidentally noted anteriorly. Pancreas: Unremarkable. Adrenal glands: Unremarkable. Kidneys: The contrast enhanced kidneys are normal in size and without hy dronephrosis. The kidneys enhance symmetrically. 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 Renal sinus cysts are seen on the left. Abdominal vasculature: The abdominal aorta is normal in course and caliber noting moderate atherosclerotic calcification. Bowel: Liquid stool is seen throughout the colon. There is a long segment of colonic wall thickening and edema with surrounding inflammation and fluid involving the left colon. This extends from the splenic flexure to the distal descending colon and is consistent with a nonspecific colitis. There is no bowel obstruction. The appendix is not visualized. Peritoneum: There is no intraperitoneal free air or abdominal ascites. There is a small fat-containing umbilical hernia. Lymphadenopathy: None. Pelvic viscera: The bladder is normal as visualized. The uterus is surgically absent. No adnexal lesion is seen. Skeletal structures: The skeletal structures are osteopenic. There is mild lumbosacral spondylosis. No lytic or blastic lesions are seen. IMPRESSION: 1. Findings are consistent with a nonspecific colitis of the left colon. Clinical correlation will be required. 2. No bowel obstruction. 3. 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 4. Small hiatal hernia. 5. Additional findings as above. ACT 112: Negative or not required by law. Electronically signed by: Angel Cash M.D. 03/09/2022 9:57 AM Chest X-Ray 03/09/22 08:30 SINGLE VIEW CHEST CLINICAL HISTORY: Dyspnea FINDINGS: An AP, portable, upright chest radiograph is compared to study dated 07/17/2019. The cardiomediastinal silhouette is unremarkable. The lungs and pleural spaces are clear noting mild bibasilar atelectasis. No pneumothorax is seen. The skeletal structures are osteopenic. The bony thorax is grossly intact. IMPRESSION: No active disease in the chest. ACT 112: Negative or not required by law. Electronically signed by: Angel Cash M.D. 03/09/2022 9:03 AM Venous Doppler Study 03/09/22 08:30 BILATERAL LOWER EXTREMITY VENOUS DOPPLER CLINICAL HISTORY: Bilateral calf pain. COMPARISON STUDY: No previous studies for comparison. TECHNIQUE: Sonography of the deep venous system of the bilateral lower extremities was performed. Compression and augmentation were evaluated. FINDINGS: The bilateral common femoral, superficial femoral and popliteal veins were compressible. Augmentation was normal. Flow was shown within the deep calf vessels. IMPRESSION: No evidence of deep venous thrombus within the bilateral lower extremities. ACT 112: Negative or not required by law. Electronically signed by: Gianni Rudolph M.D. 03/09/2022 11:32 AM Supervising Physician Co-Signing Physician Notes Pt was seen and examined. Agreed with Christel DAVIS exam, assessment and plan. 66 y/o F with PMH HTN, HLD, DM II, GERD, renal artery aneurysm, depression/anxiety, presented to ER with multiple medical complaints. States 3 days ago started with GAMBLE, body aches, vomiting greater than 10 times over past couple days. Also c/o nasal congestion, clear productive cough. SOB with exertion. Having chills. Was not taking temperature at home. She took home COVID-19 test and was positive on 03/07/22. She was started on Paxlovid and reports took two days and stopped secondary to nausea. She states left chest stabbing pain that is intermittent occurs once daily when sitting and sometimes with associated palpitations past couple of days. This also occurs multiple times a week, worse when feeling anxious. Follows with Dr Ramsey. Reports was constipated past 2 days until today. Yesterday started with lower abdominal pain cramping. Today started with watery diarrhea. Reddish color diarrhea today. 5 episodes diarrhea today. Couple weeks ago had urinary frequency and was given Keflex 500mg BID x 5 days with r esolution of symptoms. Did not have formal UA completed. No dysuria,hematuria. States for months been having BLE cramping. No ill contacts. Had 2 COVID-19 vaccines plus booster. Last shot in 2020. H/O colonoscopy in past in [place], patient thinks 3-4 years ago and reports it was normal. Denies syncope, vision changes, neck pain, SOB, orthopnea, hemoptysis, sore throat, choking, otalgia, paresthesias, extremity weakness, extremity edema, rashes.
[2022-03-09] MEDS ORDERED: POTASSIUM CHLORIDE CRTAB 20 MEQ TABCR PO STA (14:11)
[2022-03-09 15:53] LABS: Hematocrit (blood only) 48.3 % (34.1-44.9); Hemoglobin 16.8 g/dl (12.0-16.0)
[2022-03-09 16:19] LABS: BUN Creatinine Ratio 18.2 (10-20); Calcium 8.5 mg/dl (8.5-10.1); Creatinine Clr Calc Pharmacy 100.3 ml/min; Est GFR (African American) 113.3 ml/min; Est GFR (Non-African American) 97.7 ml/min; Potassium 3.7 mmol/L (3.5-5.1)
[2022-03-09 16:23] LABS: Troponin I High Sensitivity 6.2 pg/ml (0-14)
[2022-03-09] MEDS ORDERED: GLUCAGON FOR INJ 1 MG VIAL SQ PRN (16:46)
[2022-03-09] MEDS ORDERED: ACETAMINOPHEN 325 MG TAB PO PRN (16:46)
[2022-03-09] MEDS ORDERED: CARBOHYDRATES FOR HYPOGLYCEMIA PO PRN (16:46)
[2022-03-09] MEDS ORDERED: DEXTROSE 50% 50 ML SYRINGE IV PRN (16:46)
[2022-03-09] MEDS ORDERED: GLUCOSE 40% GEL 15 GM TUBE PO PRN (16:46)
[2022-03-09] MEDS ORDERED: GLUCOSE 10 TAB/TUBE PO PRN (16:46)
[2022-03-09] MEDS: INSULIN ASPART PER UNIT SC SCH ×2 (17:10→21:11)
[2022-03-09] MEDS ORDERED: ENOXAPARIN INJ 40 MG/0.4 ML SYR SQ SCH (18:00)
[2022-03-09] MEDS: cefTRIAXone SODIUM 2,000 MG in DEXTROSE 5% 50 ML IV SCH (18:06)
[2022-03-09] MEDS: metroNIDAZOLE 500 MG/100 ML BAG IV SCH (18:44)
[2022-03-09] MEDS ORDERED: LORazepam 0.5 MG TAB PO ONE (20:44)
[2022-03-09] MEDS: PROMETHAZINE HCL 12.5 MG in SODIUM CHLORIDE 0.9% 50 ML IV PRN (21:03)
[2022-03-09] MEDS: METOPROLOL SUCC 50MG EXT REL TAB PO SCH (21:11)
[2022-03-09] MEDS: ATORVASTATIN 20 MG TAB PO SCH (21:11)
[2022-03-09] MEDS: FAMOTIDINE 20 MG TAB PO SCH (21:11)
[2022-03-09] MEDS: PANTOprazole 40 MG in SYRINGE 0 ML IV SCH (21:12)
[2022-03-09 23:14] LABS: Adenovirus F 40/41 PCR Not Detected (NotDetected); Astrovirus PCR Not Detected (NotDetected); Campylobacter PCR Not Detected (NotDetected); Clostridium diff Toxin A/B PCR Not Detected (NotDetected); Cryptosporidium PCR Not Detected (NotDetected); Cyclospora cayetanensis PCR Not Detected (NotDetected); Entamoeba histolytica PCR Not Detected (NotDetected); Enteroaggregative E.coli(EAEC) Not Detected (NotDetected); Enteropathogenic E.coli (EPEC) Not Detected (NotDetected); Enterotoxigenic E.coli (ETEC) Not Detected (NotDetected); Giardia lamblia PCR Not Detected (NotDetected); Norovirus GI/GII PCR Not Detected (NotDetected); Plesiomonas shigelloides PCR Not Detected (NotDetected); Rotavirus A PCR Not Detected (NotDetected); Salmonella PCR Not Detected (NotDetected); Sapovirus PCR Not Detected (NotDetected); Shiga-like Toxin E.coli (STEC) Not Detected (NotDetected); Shigella/Enteroinvasive E.coli Not Detected (NotDetected); Vibrio cholerae PCR Not Detected (NotDetected); Vibrio species PCR Not Detected (NotDetected); Yersinia enterocolitica PCR Not Detected (NotDetected)
[2022-03-10] MEDS: metroNIDAZOLE 500 MG/100 ML BAG IV SCH ×3 (02:00→16:44)
[2022-03-10] MEDS: INSULIN ASPART PER UNIT SC SCH ×4 (08:04→20:24)
[2022-03-10] MEDS: amLODIPine BESYLATE 5 MG TAB PO SCH (08:11)
[2022-03-10] MEDS: PANTOprazole 40 MG in SYRINGE 0 ML IV SCH ×2 (08:11→21:08)
[2022-03-10] MEDS: FAMOTIDINE 20 MG TAB PO SCH ×2 (08:11→21:08)
--- NOTE | 2022-03-10 08:21 | Electrocardiogram Report ---
Test Reason : Blood Pressure : / mmHG Vent. Rate : 067 BPM Atrial Rate : 067 BPM P-R Int : 122 ms QRS Dur : 080 ms QT Int : 468 ms P-R-T Axes : 000 -10 030 degrees QTc Int : 494 ms Ectopic atrial rhythm with PACs Voltage criteria for left ventricular hypertrophy Prolonged QT Abnormal ECG When compared with ECG of 09-MAR-2022 08:47, No significant change was found Confirmed by Narciso Cortez ([id number]) on 03/10/2022 8:19:20 AM Referred By: REFERRED SELF Confirmed By:Jose Cortez
[2022-03-10 08:30] LABS: Hematocrit (blood only) 47.3 % (34.1-44.9); Hemoglobin 16.3 g/dl (12.0-16.0); Mean Corpuscular Hemoglobin 27.8 pg (25.0-34.0); Mean Corpuscular Hgb Conc 34.5 g/dL (32.0-36.0); Mean Corpuscular Volume 80.6 fL (80.0-100.0); Platelet Count 241 K/uL (130-400); RDW Coefficient of Variation 14.5 % (11.5-14.5); RDW Standard Deviation 42.3 fL (36.4-46.3); Red Blood Count 5.87 M/uL (3.93-5.22); White Blood Count 6.95 K/ul (4.8-10.8)
[2022-03-10] MEDS ORDERED: CLOPIDOGREL BISULFATE 75 MG TAB PO SCH (09:00)
[2022-03-10 09:42] LABS: Albumin Globulin Ratio 2.1 (0.9-2); Albumin Level 3.8 gm/dl (3.4-5.0); BUN Creatinine Ratio 14.8 (10-20); Bilirubin,Total 0.5 mg/dl (0.2-1.0); Calcium 8.4 mg/dl (8.5-10.1); Creatinine Clr Calc Pharmacy 102.2 ml/min; Est GFR (Non-African American) 98.3 ml/min; Globulin 1.8 gm/dl (2.5-4.0); Potassium 3.5 mmol/L (3.5-5.1); Total Protein 5.6 gm/dl (6.0-8.3)
[2022-03-10 09:45] LABS: Estimated Average Glucose 131 mg/dl; Hemoglobin A1C 6.2 % (4.5-5.6)
[2022-03-10] MEDS: PROMETHAZINE HCL 12.5 MG in SODIUM CHLORIDE 0.9% 50 ML IV PRN ×2 (14:34→21:10)
[2022-03-10] MEDS: cefTRIAXone SODIUM 2,000 MG in DEXTROSE 5% 50 ML IV SCH (16:43)
[2022-03-10] MEDS: METOPROLOL SUCC 50MG EXT REL TAB PO SCH (21:08)
[2022-03-10] MEDS: ATORVASTATIN 20 MG TAB PO SCH (21:08)
--- NOTE | 2022-03-10 21:40 | Hospitalist Progress Note ---
Date of Service March 10, 2022 Assessment & Plan (1) COVID-19: Plan: P66 y/o F with PMH HTN, HLD, DM II, GERD, renal artery aneurysm, depression/anxiety, tested positive for COVID 19 that was started on Paxlovid presented to the ER with recurrent watery diarrhea, GAMBLE, body aches, vomiting greater than 10 times, nasal congestion, clear productive cough Took Paxlovid x two days - will hold it because pt said that she is not able to tolerate it due to the nausea and vomiting CXR showed no active disease in the chest. Saturated well on RA Do not meet criteria for dexamethasone and remdesivir Continue Incentive spirometry, flutter valve Continue monitor closely (2) Colitis: Plan: She was having recurrent episode of watery diarrhe CT abd/pelvis showed Findings are consistent with a nonspecific colitis of the left colon. Continue IV ceftriaxone and flagyl Diet advanced to Full liquid diet stool study negative FOBT positive - GI consult Diarrhea improved Positive FOBT Hgb stable GI consult Plavix on hold Monitor hgb (3) Chest pain: Plan: Reported chronic intermittent CP 08/07/2019: Nuclear stress test which suggest the possibility of an old apical myocardial infarction. However, the gated images on that stress test noted normal left ventricular systolic function including the apex. Suspect that this perfusion defect was related to breast attenuation.08/2019 Echocardiogram: normal LV systolic function and regional wall motion Troponin negative Currently denies any chest pain (4) Leg pain: Plan: Patient reported ongoing bilateral lower extremity cramping Venous Doppler: Negative for DVT Monitor (5) Prolonged QT interval: Plan: QTc: 511 Hold QTC prolonging agents (6) Hyponatremia: Plan: Na: 129 on admission Mostly due to GI losses Received IVF Na 135 today Continue monitor BMP (7) Hypokalemia: Plan: K: 3.3. 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 Creatinine stable Plavix on hold due to +FOBT Will discuss finding with vascular and nephrology (9) Type 2 diabetes mellitus: Plan: A1c 6.2 on 03/10/22 Continue to hold Jardiance NovoLog sliding scale with correction for now, may need to tighten parameters continue monitor BS (10) Hypertension: Plan: BP stable Continue amlodipine, metoprolol succinate Continue to hold triamterene/HCTZ (11) Hyperlipidemia: Plan: Continue atorvastatin (12) GERD (gastroesophageal reflux disease): Plan: Continue IV PPI Continue H2 fartun (13) Depression with anxiety: Plan: Patient with additional stressors recently with recent loss of her after prolonged illness Patient had reported memory issues and requested PCP to place her on donepezil Hold home fluoxetine, donepezil with current prolonged QTc repeat qtc 491 today (14) Tinnitus: Plan: Hold imipramine with prolonged QTC DVT Prophylaxis on SCD due to +FOBT Admission and Anticipated Discharge Date Admission Date: March 09, 2022 Subjective Pt was seen and examined for follow up of diarrhea and covid 19 Sitting in bed with no distress Pt is very anxious because she wants to go home to prepare for her trip She said that her diarrhea improves She had 3 episodes of diarrhea so far and nurse said there were trace of blood Denies any chest pain, palpitation, dizziness, nausea and vomiting Review of Systems Review of Systems: All systems reviewed & are unremarkable except as noted in Subjective Physical Exam Physical Exam: General- No acute distress Head- atraumatic Eyes- PERRL, EOMI, ENT- oropharynx clear Neck- supple, no JVD Lungs- clear to auscultation Heart- regular rhythm; no murmur Abdomen- normal bowel sounds, soft, nontender Extremities- no calf tenderness Neuro- alert, oriented x 3; PERRL, EOMI; no facial palsy; no dysarthria Skin- warm & dry Results & Data Results & Data ([facility]) Vital Signs (Past 12 Hours) Vital Signs Temp Pulse Pulse Resp BP BP Pulse Ox 03/10/22 19:28 37.1 C 75 16 132/72 95 03/10/22 16:54 36.9 C 71 20 134/74 94 03/10/22 15:11 71 03/10/22 11:52 36.8 C 70 20 144/73 H 94 O2 Del Method 03/10/22 19:28 Room Air 03/10/22 16:54 Room Air 03/10/22 15:11 03/10/22 11:52 Room Air
[2022-03-10] MEDS ORDERED: PROCHLORPERAZINE 5 MG in SYRINGE 4 ML IV PRN (21:47)
[2022-03-10] MEDS ORDERED: LORazepam 0.5 MG TAB PO PRN (22:28)
[2022-03-11] MEDS: metroNIDAZOLE 500 MG/100 ML BAG IV SCH ×2 (02:53→09:08)
[2022-03-11 06:08] LABS: Hematocrit (blood only) 42.2 % (34.1-44.9); Hemoglobin 14.1 g/dl (12.0-16.0); Mean Corpuscular Hemoglobin 27.3 pg (25.0-34.0); Mean Corpuscular Hgb Conc 33.4 g/dL (32.0-36.0); Mean Corpuscular Volume 81.8 fL (80.0-100.0); Mean Platelet Volume 10.5 fL (9.4-12.3); Platelet Count 187 K/uL (130-400); RDW Coefficient of Variation 14.6 % (11.5-14.5); RDW Standard Deviation 43.5 fL (36.4-46.3); Red Blood Count 5.16 M/uL (3.93-5.22); White Blood Count 8.31 K/ul (4.8-10.8)
[2022-03-11 06:24] LABS: BUN Creatinine Ratio 15.8 (10-20); Calcium 8.3 mg/dl (8.5-10.1); Creatinine Clr Calc Pharmacy 97.2 ml/min; Est GFR (Non-African American) 96.6 ml/min; Potassium 3.4 mmol/L (3.5-5.1)
[2022-03-11] MEDS: FAMOTIDINE 20 MG TAB PO SCH (08:34)
[2022-03-11] MEDS: amLODIPine BESYLATE 5 MG TAB PO SCH (08:34)
[2022-03-11] MEDS: PANTOprazole 40 MG in SYRINGE 0 ML IV SCH (08:35)
--- NOTE | 2022-03-11 08:44 | Gastrointestinal Consultation ---
Date of Consultation March 11, 2022 Assessment & Plan (1) COVID-19: 66 year old female with COVID-19 infection admitted with cough, congestions, SOB, chest pain, nausea/diarrhea, GI asked to evaluate for heme + stools. She remains hemodynamically stable, stable, HGB and no BUN elevation or report of GI blood loss She has not had EGD/Colon in [facility] or [facility] systems and is not routinely cared for as an outpatient by [facility]. Once she recovers from her COVID-19 infection, would recommend she follow up with PCP to arrange EGD/Colonoscopy where she routinely gets her care. Thank you for allowing us to participate in the care of this patient. Please call with any acute changes, questions or concerns. Please see addendum below with additional recommendation from my supervising physician. History of Present Illness Reason for Consultation: heme + stool Requesting Physician: Wero Attending Physician: Thad Conteh MD History of Present Illness 66 year old female with history of HTN, HLD, DM II, GERD, renal artery aneurysm, depression/anxiety admitted with COVID-19, complaining of cough, congestion, SOB, chest pain, nausea and diarrhea. GI was asked to evaluate for heme positive stools. Given COVID-19 infection, stable HGB and no evidence of GI bleeding, chart reviewed was conducted. VSS HGB 14 BUN 9 Occult + CTAP 2021: Findings are consistent with a nonspecific colitis of the left colon. Clinical correlation will be required.No bowel obstruction. 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 Small hiatal hernia. EGD/Colonoscopy: none in [facility] or [facility] systems Allergies Allergy/AdvReac Type Severity Reaction Status Date / Time Penicillins Allergy Unknown rash Verified 02/02/21 15:50 chlorhexidine Allergy itching Verified 03/10/22 08:47 Home Medications Medication Instructions Recorded Confirmed Type amlodipine 5 mg tablet (Norvasc) 5 mg PO QAM 07/15/19 03/09/22 History atorvastatin 20 mg tablet (Lipitor) 20 mg PO PM 07/15/19 03/09/22 History empagliflozin 10 mg tablet 10 mg PO QAM 07/15/19 03/09/22 History (Jardiance) imipramine HCl 50 mg tablet 50 mg PO QPM 07/15/19 03/09/22 History omeprazole 20 mg tablet,delayed 20 mg PO BID 07/15/19 03/09/22 History release triamterene 37.5 1 cap PO QAM 07/15/19 03/09/22 History mg-hydrochlorothiazide 25 mg capsule (Dyazide) clopidogrel 75 mg tablet 75 mg PO DAILY #90 tabs 01/11/22 03/09/22 Rx celecoxib 200 mg capsule (Celebrex) 200 mg PO DAILY pain 03/09/22 03/09/22 History donepezil 5 mg tablet 5 mg PO PM 03/09/22 03/09/22 History ergocalciferol (vitamin D2) 1,250 50,000 unit PO WK 03/09/22 03/09/22 History mcg (50,000 unit) capsule famotidine 20 mg tablet 20 mg PO BID 03/09/22 03/09/22 History fluoxetine 40 mg capsule 40 mg PO DAILY 03/09/22 03/09/22 History metoprolol succinate 50 mg 50 mg PO PM 03/09/22 03/09/22 History tablet,extended release 24 hr nitroglycerin 0.4 mg sublingual 0.4 mg sublingual UD PRN Chest Pain 03/09/22 03/09/22 History tablet Patient History Medical History (Updated 03/10/22 @ 22:27 by Thad Conteh MD) CAD (coronary artery disease) Myocardial perfusion study 08/02/19 shows evidence of prior infarct in LAD territory. Patient did not report h/o TN. Depression with anxiety GERD (gastroesophageal reflux disease) GERD (gastroesophageal reflux disease) Hx of Lyme disease Hyperlipidemia Hypertension Osteoarthritis Tinnitus Type 2 diabetes mellitus Surgical History History of cardiac cath ~10yrs ago for abnormal stress test. No stents. Pt reports she was told she had a 45% blockage in one artery. History of total left knee replacement History of total right knee replacement Hx of section Hx of colonoscopy Hx of oophorectomy Hx of total hysterectomy Nausea and vomiting after administration of anesthetic agent Status post tonsillectomy and adenoidectomy (05/09/14) Family History Unknown No family history of adverse response to anesthesia Other Heart disease Stroke Social History Smoking Status: Never smoker Second Hand Exposure: No; Hx Alcohol Use: No Hx Substance Use: No Preferred Language: Hong Konger Communication Ability: Effective Visual Impairment: No Limitations Cash Management Officer Required: No Beliefs That Will Affect Care: None marital status: Current Living Situation: Alone Feels Safe at Home: Yes Assistive Devices: None Results & Data ([facility]) Vital Signs (Past 12 Hours) Vital Signs Temp Pulse Pulse Resp BP Pulse Ox O2 Del Method 03/11/22 07:54 36.8 C 61 20 99/65 L 97 Room Air 03/11/22 08:32 104/69 03/11/22 07:16 55 L 03/10/22 23:58 76 03/10/22 23:03 36.8 C 71 18 138/77 98 Room Air Laboratory Results 03/11/22 03/11/22 03/11/22 Range/Units 07:50 05:38 05:38 WBC 8.31 (4.8-10.8) K/ul RBC 5.16 (3.93-5.22) M/uL Hgb 14.1 (12.0-16.0) g/dl Hct 42.2 (34.1-44.9) % MCV 81.8 (80.0-100.0) fL MCH 27.3 (25.0-34.0) pg MCHC 33.4 (32.0-36.0) g/dL RDW Std Deviation 43.5 (36.4-46.3) fL RDW Coeff of Contreras 14.6 H (11.5-14.5) % Plt Count 187 (130-400) K/uL MPV 10.5 (9.4-12.3) fL Sodium 136 (136-145) mmol/L Potassium 3.4 L (3.5-5.1) mmol/L Chloride 102 (98-107) mmol/L Carbon Dioxide 25 (21-32) mmol/L Anion Gap 9 (3-11) BUN 9 (6-23) mg/dl Creatinine 0.57 L (0.6-1.2) mg/dl Est Cr Clr Drug Dosing 97.2 ml/min Est GFR ( Amer) 112.0 ml/min Est GFR (Non-Af Amer) 96.6 ml/min BUN/Creatinine Ratio 15.8 (10-20) Glucose 106 H (70-99(Fasting)) mg/dl POC Glucose 94 (70-99) mg/dl Estimat Average Glucose mg/dl Hemoglobin A1c (4.5-5.6) % Calcium 8.3 L (8.5-10.1) mg/dl Total Bilirubin (0.2-1.0) mg/dl AST (13-39) U/L ALT (7-52) U/L Alkaline Phosphatase (34-104) U/L Total Protein (6.0-8.3) gm/dl Albumin (3.4-5.0) gm/dl Globulin (2.5-4.0) gm/dl Albumin/Globulin Ratio (0.9-2) Stool Occult Bld Scrn (Negative) 03/10/22 03/10/22 03/10/22 Range/Units 20:07 16:50 12:20 WBC (4.8-10.8) K/ul RBC (3.93-5.22) M/uL Hgb (12.0-16.0) g/dl Hct (34.1-44.9) % MCV (80.0-100.0) fL MCH (25.0-34.0) pg MCHC (32.0-36.0) g/dL RDW Std Deviation (36.4-46.3) fL RDW Coeff of Contreras (11.5-14.5) % Plt Count (130-400) K/uL MPV (9.4-12.3) fL Sodium (136-145) mmol/L Potassium (3.5-5.1) mmol/L Chloride (98-107) mmol/L Carbon Dioxide (21-32) mmol/L Anion Gap (3-11) BUN (6-23) mg/dl Creatinine (0.6-1.2) mg/dl Est Cr Clr Drug Dosing ml/min Est GFR ( Amer) ml/min Est GFR (Non-Af Amer) ml/min BUN/Creatinine Ratio (10-20) Glucose (70-99(Fasting)) mg/dl POC Glucose 109 H 109 H (70-99) mg/dl Estimat Average Glucose mg/dl Hemoglobin A1c (4.5-5.6) % Calcium (8.5-10.1) mg/dl Total Bilirubin (0.2-1.0) mg/dl AST (13-39) U/L ALT (7-52) U/L Alkaline Phosphatase (34-104) U/L Total Protein (6.0-8.3) gm/dl Albumin (3.4-5.0) gm/dl Globulin (2.5-4.0) gm/dl Albumin/Globulin Ratio (0.9-2) Stool Occult Bld Scrn Positive A (Negative) 03/10/22 03/10/22 03/10/22 Range/Units 11:44 07:57 07:57 WBC (4.8-10.8) K/ul RBC (3.93-5.22) M/uL Hgb (12.0-16.0) g/dl Hct (34.1-44.9) % MCV (80.0-100.0) fL MCH (25.0-34.0) pg MCHC (32.0-36.0) g/dL RDW Std Deviation (36.4-46.3) fL RDW Coeff of Contreras (11.5-14.5) % Plt Count (130-400) K/uL MPV (9.4-12.3) fL Sodium 135 L (136-145) mmol/L Potassium 3.5 (3.5-5.1) mmol/L Chloride 104 (98-107) mmol/L Carbon Dioxide 24 (21-32) mmol/L Anion Gap 7 (3-11) BUN 8 (6-23) mg/dl Creatinine 0.54 L (0.6-1.2) mg/dl Est Cr Clr Drug Dosing 102.2 ml/min Est GFR ( Amer) 114.0 ml/min Est GFR (Non-Af Amer) 98.3 ml/min BUN/Creatinine Ratio 14.8 (10-20) Glucose 118 H (70-99(Fasting)) mg/dl POC Glucose 96 (70-99) mg/dl Estimat Average Glucose 131 mg/dl Hemoglobin A1c 6.2 H (4.5-5.6) % Calcium 8.4 L (8.5-10.1) mg/dl Total Bilirubin 0.5 (0.2-1.0) mg/dl AST 38 (13-39) U/L ALT 44 (7-52) U/L Alkaline Phosphatase 52 (34-104) U/L Total Protein 5.6 L D (6.0-8.3) gm/dl Albumin 3.8 (3.4-5.0) gm/dl Globulin 1.8 L (2.5-4.0) gm/dl Albumin/Globulin Ratio 2.1 H (0.9-2) Stool Occult Bld Scrn (Negative)
[2022-03-11] MEDS: INSULIN ASPART PER UNIT SC SCH ×2 (08:55→12:02)
[2022-03-11] MEDS ORDERED: POTASSIUM CHLORIDE CRTAB 20 MEQ TABCR PO STA (10:58)
[2022-03-11] MEDS ORDERED: CHOLESTYRAMINE LIGHT 4 GM PKT PO PRN (12:03)
--- NOTE | 2022-03-11 15:43 | Discharge Summary ---
Date of Service March 11, 2022 Admission HPI Per Admitting Provider Patient is 66 y/o F with PMH HTN, HLD, DM II, GERD, renal artery aneurysm, depression/anxiety, presented to ER with multiple medical complaints. States 3 days ago started with GAMBLE, body aches, vomiting greater than 10 times over past couple days. Also c/o nasal congestion, clear productive cough. SOB with exertion. Having chills. Was not taking temperature at home. She took home COVID-19 test and was positive on 03/07/22. She was started on Paxlovid and reports took two days and stopped secondary to nausea. She states left chest stabbing pain that is intermittent occurs once daily when sitting and sometimes with associated palpitations past couple of days. This also occurs multiple times a week, worse when feeling anxious. Follows with Dr Ramsey. Reports was constipated past 2 days until today. Yesterday started with lower abdominal pain cramping. Today started with watery diarrhea. Reddish color diarrhea today. 5 episodes diarrhea today. Couple weeks ago had urinary frequency and was given Keflex 500mg BID x 5 days with resolution of symptoms. Did not have formal UA completed. No dysuria,hematuria. States for months been having BLE cramping. No ill contacts. Had 2 COVID-19 vaccines plus booster. Last shot in 2020. H/O colonoscopy in past in [place], patient thinks 3-4 years ago and reports it was normal. Denies syncope, vision changes, neck pain, SOB, orthopnea, hemoptysis, sore throat, choking, otalgia, paresthesias, extremity weakness, extremity edema, rashes. Admission Exam Per Admitting Provider General: no distress, WDWN Head: normocephalic, atraumatic Eyes: PERRL, EOM's intact, conjunctiva non-injected, anicteric ENT: normal inspection external ears, nose, mucous membranes dry Neck: supple, trachea midline Lungs: clear, no respiratory distress, no wheezing/rhonchi/rales CV: RRR, no murmur, no JVD, no pretibial edema Abd: normal BS, soft,+tenderness to palpation RLQ, LLQ without rebound or guarding Ext: no cyanosis, no calf tenderness, no erythema Neuro: A&O x 3, no focal deficits noted, normal affect Skin: warm, dry Principal Diagnosis covid 19 infection, non-specific colitis Discharge Exam Gen: WD/WN, NAD, sitting in bed, A&Ox3, anxious HEENT: Normocephalic, atraumatic, conjunctivae moist, sclerae anicteric, mucous membranes moist Lung: Clear to Auscultation bilaterally, no wheezes/rales/rhonchi Heart: Regular rate, regular rhythm, no murmurs, rubs, or gallops Abdomen: Soft, diffuse mild TTP, no guarding, ND +BS x 4 Extremities: no edema Skin: Warm, no rash Discharge Data Allergies Allergy/AdvReac Type Severity Reaction Status Date / Time Penicillins Allergy Unknown rash Verified 02/02/21 15:50 chlorhexidine Allergy itching Verified 03/10/22 08:47 Consultations 03/09/22 12:41 ED Decision to Admit Stat 03/10/22 13:21 Consult Gastroenterology Routine Ordered Studies 03/09/22 08:30 CT abd pelvis IV con only Stat US venous doppler LE BI Stat Hospital Course (1) COVID-19: (2) Colitis: (3) Chest pain: (4) Leg pain: (5) Prolonged QT interval: (6) Hyponatremia: (7) Hypokalemia: (8) Renal artery thrombosis: (9) Type 2 diabetes mellitus: (10) Hypertension: (11) Hyperlipidemia: (12) GERD (gastroesophageal reflux disease): (13) Depression with anxiety: (14) Tinnitus: Plan This is a 66 y/o F with PMH HTN, HLD, DM II, GERD, renal artery aneurysm, depression/anxiety, tested positive for COVID 19 that was started on Paxlovid presented to the ER with recurrent watery diarrhea, GAMBLE, body aches, vomiting greater than 10 times, nasal congestion, clear productive cough who was found to have covid 19 infection and non-specific colitis. CT abdomen pelvis with findings consistent with a nonspecific colitis of left colon. Symptoms have improved over the past few days. Stool culture negative. FOBT positive. Vital stable, no elevated BUN, hemoglobin stable at 14 so no urgent procedures indicated. GI recommends patient arrange for outpatient EGD/Colonoscopy where she routinely gets her care within next few months. Recommended Questran BID PRN for diarrhea. Will complete course of abx for colitis. During admission, QTc prolongation noted likely in setting of imipramine and recent paxlovid (most recently 491 ms). Patient and family inquired about about increasing antidepressants given recent of but psychiatry recommends reassessing in OP setting with repeat ECG given fluctuation. If QTc improves or remains stable <500 ms), consider increasing fluoxetine dose from 40mg to 60mg. Will defer to Dr. Payne regarding this vs. establishing with psychiatrist. Imipramine held at this time until reassessed with ECG. Therapy recommended as a beneficial step in greiving process. Has been on plavix for history of history of renal artery aneurysm, which was held in setting of heme positive stool. CT abd/pelvis with 1.6cm thrombosed RAA on admission. Discussed this with [facility] vascular surgery, who recommends conservative mgmt for aneurysm <2cm. Recommend vascular follow up for continued surveillance. Holding Plavix and Celebrex for now given GI bleeding. Repeat CBC within week before PCP follow up. Patient comfortable and hemodynamically stable at time of discharge home. Total Time Total Time Spent Total Time Spent (In Minutes): 60 Discharge Plan Discharge Items Patient Disposition: Home - Self-Care Reason For Visit: +COVID Discharge Diagnosis: covid, non-specific colitis Activity: Resume your previous activity Non-emergency contact: Primary Care Provider Call non-emergency contact if: you have any medication questions, your symptoms worsen, your pain is not controlled and you have a fever Follow-up/Referrals: Soraya Payne [Primary Care Provider] - Diet: Heart Healthy Addtl Attending Provider Instructions: You were admitted with COVID-19 infection as well as nausea, vomiting and diarrhea. CT abdomen pelvis with findings consistent with a nonspecific colitis of left colon. Symptoms have improved over the past few days. Stool culture negative. FOBT positive. Vital stable, no elevated BUN, hemoglobin stable at 14. GI recommends patient arrange for outpatient EGD/Colonoscopy where you routinely gets her care within next few months. Discussed changing regimen of antidepressants given recent passing of . Per discussion with psychiatry, did not adjust during admission due to changing QTc on ECG. QTc prolongation on ECG noted - possibly in setting of recent paxlovid vs i mipramine. Psych recommends PCP repeats ECG as an outpatient to assess QTc before considering increase of fluoxetine to 60mg (if QTc improves or remains stable 9<500ms) and recheck if dose is increased. Holding imipramine until repeat ECG and Dr. Payne follow-up. Therapy recommended as a beneficial step in grieving process. Has been on plavix for history of history of renal artery aneurysm. CT a bd/pelvis with 1.6cm thrombosed RAA on admission. Discussed with [facility] vascular surgery, who recommend conservative mgmt for <2cm. Recommend follow up for continued surveillance. Hold Plavix and Celebrex for now given GI bleeding. Repeat CBC and follow up with Dr. Payne before you leave for your trip. RECOMMENDATIONS FOR FOLLOW-UP: Follow up with PCP, vascular surgery and GI. Consider psychiatry follow up. OTHER INSTRUCTIONS: Seek medical attention if you have: * temperature above 101 * chest pain or trouble breathing * abdominal pain, nausea, vomiting * diarrhea, dark stools or bloody stools * any unanswered questions or concerns Call 911 if symptoms are severe. Please take good care of yourself. Call if you have any questions or problems. You can reach a [facility] hospitalist on duty at [facility] 24 hours a day by calling [phone]. Pending Studies at Discharge: No Stand-Alone Forms: My [facility] [employer], Smoking Cessation Medications and DC Order Prescriptions: New cholestyramine-aspartame [Prevalite] 4 gram Powder In Packet 2 g PO BID@1000,2200 PRN (Reason: diarrhea) Qty: 60 0RF Rx Instructions: Take up to twice a day as needed for diarrhea. metronidazole 500 mg tablet 500 mg PO Q8H Qty: 10 0RF Rx Instructions: Take 3 times per day until gone. cefuroxime axetil 500 mg tablet 500 mg PO Q12H Qty: 7 0RF Rx Instructions: Take twice a day until course completed. Probiotic 15 billion cell capsule, sprinkle 1 cap PO DAILY Qty: 7 0RF Rx Instructions: do not crush/chew/cut; swallow whole OR may open and sprinkle in cold drink/food Continued atorvastatin [Lipitor] 20 mg Tablet 20 mg PO PM amlodipine [Norvasc] 5 mg Tablet 5 mg PO QAM triamterene-hydrochlorothiazid [Dyazide] 37.5-25 mg Capsule 1 cap PO QAM omeprazole 20 mg Tablet,Delayed Release (Dr/Ec) 20 mg PO BID Jardiance 10 mg Tablet 10 mg PO QAM fluoxetine 40 mg capsule 40 mg PO DAILY nitroglycerin 0.4 mg tablet, sublingual 0.4 mg sublingual UD PRN (Reason: Chest Pain) donepezil 5 mg tablet 5 mg PO PM ergocalciferol (vitamin D2) 1,250 mcg (50,000 unit) capsule 50,000 unit PO WK Rx Instructions: takes on fridays famotidine 20 mg tablet 20 mg PO BID metoprolol succinate 50 mg tablet extended release 24 hr 50 mg PO PM Discontinued clopidogrel 75 mg tablet 75 mg PO DAILY Qty: 90 0RF imipramine HCl 50 mg Tablet 50 mg PO QPM celecoxib [Celebrex] 200 mg capsule 200 mg PO DAILY Discharge Orders: Discharge Order (Routine); Ordered 03/11/22 Ordered By: Jaimie Dillard/Other Patient Handouts: COVID-19 Home Care, Managing Type 2 Diabetes, Treating Diarrhea, Depression: Tips to Help Yourself, Understanding Colitis Admission Data Admit Date/Time: 03/09/22 13:04 Attending Provider: Thad Conteh Admit Provider: Thad Conteh Primary Care Provider: Soraya Payne Other Providers: Thad Conteh ; Fer Sumner ; Jaimie Lee
== END 2022-03-11 16:00 | disposition home or self-care (01) | DRG 391 ==
LOC: ED 07:57 → 2W 13:04

== ENCOUNTER 2023-12-05 13:05 | Inpatient (IN) ==
[2023-12-05] MEDS: LIDOCAINE 5% 1 PATCH TD STA (14:50)
[2023-12-05] MEDS: GABAPENTIN 100 MG CAP PO STA (15:22)
--- NOTE | 2023-12-05 15:31 | Emergency Department Note ---
Impression & Plan Acute left-sided low back pain, Left lumbar radiculopathy, Paresthesia ED Provider Note ED Provider Note NAME: ARLEEN SALGUERO AGE:68 SEX: Female : 1955 ARRIVES VIA: Private vehicle INFORMANT: Patient ED PROVIDER(s): Roma Arora DO CHIEF COMPLAINT: Referred from outpatient MRI after unable to walk HPI: This is a 68-year-old female who presents after she was brought over here from outpatient radiology as she was unable to walk and complained of pain and numbness in the left lower extremity following a lumbar spine MRI. Patient states the symptoms have been occurring over the last 2 months. She states she pressure washed her house 2 months ago and then began having increased left low back pain that would radiate down to the left leg. She states she gets pain and numbness in the left leg. She states if she lays in 1 position for too long the left lower extremity goes numb and feels weak and it takes her a while before she can walk on again. She states this is what happened while an MRI. She states occasionally she is also had numbness and tingling up her left flank and into the left upper extremity. She states this all resolves quickly when she begins walking and moving. She denies headaches, vision changes, dizziness, trouble speaking, or left upper extremity weakness. She does not have a local quality specialist. She states many years ago when she was having back pain she did receive injections in her low back and thinks that that is likely what she needs again. PAST MEDICAL HISTORY:See Below PAST SURGICAL HISTORY:See Below FAMILY HISTORY:See Below SOCIAL HISTORY:See Below HOME MEDICATIONS:See Below ALLERGIES:See Below VITALS:See Below PHYSICAL EXAMINATION: GENERAL: alert, well appearing, well nourished, no distress, non-toxic EYE EXAM: normal conjunctiva, PERRL and EOM's grossly intact OROPHARYNX: no exudate, no erythema, lips, buccal mucosa, and tongue normal and mucous membranes are moist NECK: supple, no nuchal rigidity, no adenopathy, non-tender LUNGS: Clear to auscultation. Normal chest wall mechanics, no w/r/r HEART: no murmurs, S1 normal and S2 normal ABDOMEN: abdomen soft, non-tender, normo-active bowel sounds, no masses, no rebound or guarding. BACK: Back is symmetrical on inspection and there is no deformity, no midline tenderness, no CVA tenderness. SKIN: no rashes, petechiae, orbruising UPPER EXTREMITIES: upper extremities are grossly normal. FROM, nml pulses b/l. LOWER EXTREMITIES: No pitting edema. FROM, nml pulses b/l. No obvious trauma or deformity. Mildly decreased sensation subjectively with testing bilaterally. Pain with palpation over the left PSIS/left buttock NEURO EXAM: Normal sensorium, cranial nerves II-XII grossly intact, normal speech, no facial droop,nogross weakness of arms, no gross weakness of legs. Gross sensation intact. No ataxia. Vital Signs: reviewed and remarkable Differential Diagnosis: lumbar radiculopathy, muscle strain, facture, cauda equina, mass, and disc herniation. MEDICAL DECISION MAKING: This is a 68-year-old female who presents emergency department due to concern for difficulty walking and left lower extremity paresthesias after she was getting up off the MRI table. Patient states this is similar to symptoms she has been having over the last 2 months. Staff and MRI were concerned and sent her to the emergency department for additional evaluation. MRI performed earlier today was reviewed with Dr. Dang. Patient was given IV Tylenol, IV Toradol, oral gabapentin, and Lidoderm patch. She had persistent pain and due to the fact that she lives alone was concerned about taking a narcotic pain medication and even a muscle relaxer. After discussion with Dr. Dang, she was offered options for close follow-up in the office on versus inpatient evaluation and management. At this time patient more comfortable with inpatient option. Case discussed with the hospitalist team for additional evaluation and management. I do not suspect occult CVA or ICH. I suspect patient's symptoms are all related to her ongoing issues in the low back as evidence from the MRI L-spine. Consultation(s): 1620: Discussed with Dr. Dang. 6414: Discussed with Dr. Rodriguez, [facility] hospitalist team, for additional evaluation and management. ER Treatment Provided: See below Diagnostics Interpreted By Me: -Cardiac Monitoring: An order was placed for continuous cardiac monitoring. The monitor shows a rate of 60 with normal sinus rhythm. -Laboratory studies: As stated above and show below. Triage Nursing Note Reviewed Prior/Outside Records Reviewed -reviewed outpatient MRIs done earlier today Past Med/Surg History Problem List (Updated 12/06/23 @ 13:14 by Shayne Dang DO) Lumbar disc herniation with radiculopathy Paresthesia (Acute) Left lumbar radiculopathy (Acute) Acute left-sided low back pain (Acute) Anterolisthesis of lumbar spine (Acute) Acute left lumbar radiculopathy (Acute) Mixed incontinence Palpitations Chest pain syndrome Change in bowel habits Abnormal CT of the abdomen Hypertension (Chronic) Chest pain (Acute) Dehydration (Acute 05/09/14) Hypokalemia (Acute) Intractable pain (Acute) Renal artery aneurysm (Acute) Abnormal stress test Paroxysmal SVT (supraventricular tachycardia) Postprocedural urinary retention CAD (coronary artery disease) COVID-19 COVID-19 (Acute) Acute hyponatremia (Acute) Aneurysm of renal artery (Acute) Abdominal pain (Acute) Colitis (Acute) Leg pain Prolonged QT interval Hyponatremia Renal artery thrombosis Rectal bleeding Abnormal CT scan, colon Tinnitus Depression with anxiety GERD (gastroesophageal reflux disease) Type 2 diabetes mellitus no meds currently Hyperlipidemia Medical History Hiatal hernia History of COVID-19 03/09/22>HOSPITALIZED FOR COVID *STOMACH PROBLEMS CONT. (REASON FOR DX) CAD (coronary artery disease) Myocardial perfusion study 08/02/19 shows evidence of prior infarct in LAD territory. Patient did not report h/o AK. Hx of Lyme disease Osteoarthritis Hypertension Surgical History History of esophagogastroduodenoscopy (EGD) History of total left knee replacement History of cardiac cath ~10yrs ago for abnormal stress test. No stents. Pt reports she was told she had a 45% blockage in one artery.>FOLLOWED BY DR. DOTSON Nausea and vomiting after administration of anesthetic agent History of total right knee replacement Hx of section X 1 Hx of oophorectomy Hx of colonoscopy Hx of total hysterectomy Status post tonsillectomy and adenoidectomy (05/09/14) Family History Unknown No family history of adverse response to anesthesia Other Heart disease Stroke Social History Smoking Status: Never smoker Second Hand Exposure: No; Do You Dip or Chew Tobacco: No; Hx Alcohol Use: Yes Hx Substance Use: No Preferred Language: Spanish Communication Ability: Effective Visual Impairment: No Limitations Middleware Developer Required: No Beliefs That Will Affect Care: Hindu marital status: Current Living Situation: Alone Feels Safe at Home: Yes Assistive Devices: Glasses Allergies Allergies Allergy/AdvReac Type Severity Reaction Status Date / Time Penicillins Allergy Mild rash Verified 12/05/23 15:16 lisinopril AdvReac Intermediate Cough Unverified 12/05/23 15:16 Home Meds Home Medications Medication Instructions Recorded Confirmed atorvastatin 20 mg tablet (Lipitor) 20 mg PO PM 07/15/19 12/05/23 fluoxetine 40 mg capsule 40 mg PO QAM 03/09/22 12/05/23 nitroglycerin 0.4 mg sublingual 0.4 mg sublingual UD PRN Chest Pain 03/09/22 12/05/23 tablet acetaminophen 500 mg tablet 500 mg PO Q6H PRN PAIN/FEVER 12/05/23 12/05/23 amlodipine 10 mg tablet 10 mg PO QPM 12/05/23 12/05/23 celecoxib 200 mg capsule 200 mg PO QAM 12/05/23 12/05/23 cholecalciferol (vitamin D3) 1,250 50,000 unit PO WK 12/05/23 12/05/23 mcg (50,000 unit) capsule donepezil 10 mg tablet 10 mg PO HS 12/05/23 12/05/23 empagliflozin 10 mg tablet 10 mg PO QAM 12/05/23 12/05/23 (Jardiance) famotidine 20 mg tablet 20 mg PO BID PRN Acid Reflux 12/05/23 12/05/23 hydralazine 50 mg tablet 50 mg PO BID 12/05/23 12/05/23 imipramine HCl 50 mg tablet 50 mg PO HS 12/05/23 12/05/23 naproxen sodium 220 mg tablet 220 mg PO BID PRN Pain 12/05/23 12/05/23 (Aleve) ondansetron HCl 8 mg tablet 8 mg PO Q8H PRN Nausea And Vomiting 12/05/23 12/05/23 trazodone 50 mg tablet 150 mg PO QPM 12/05/23 12/05/23 Previous Rx's Medication Instructions Recorded metoprolol succinate 50 mg 75 mg (1.5 x 50 mg) PO PM #180 tabs 12/15/22 tablet,extended release 24 hr diazepam 2 mg tablet (Valium) 1 mg (1/2 x 2 mg) PO BID PRN 12/01/23 muscle spasm #4 tabs oxycodone 5 mg tablet 5 mg PO Q8H PRN pain #8 tabs 12/01/23 Results & Data (ED) Vital Signs Vital Signs - 24 hr 12/05/23 13:15 12/05/23 13:40 12/05/23 14:01 Temperature 36.5 C Temperature Source Temporal Artery Scan Pulse Rate 62 Pulse Rate [Finger] 60 57 L Pulse Rhythm [Finger] Regular Regular Pulse Strength [Finger] Normal Normal Respiratory Rate 18 16 18 Respiratory Effort / Characteristics Non-Labored Non-Labored Non-Labored Respiratory Depth Normal Normal Normal Respiratory Pattern Regular Blood Pressure 148/71 H Blood Pressure [Right Arm] 138/81 148/73 H Blood Pressure Mean 96 Blood Pressure Mean [Right Arm] 100 98 Blood Pressure Position Sitting Blood Pressure Position [Right Arm] Sitting Sitting Pulse Oximetry 99 99 98 Oxygen Delivery Method Room Air Room Air Room Air Sepsis Recent Fever Within 48 Hours No Sepsis New/Unexplained Change in Mental Status No Sepsis Action Taken by Nursing No Action Required 12/05/23 14:30 12/05/23 16:00 12/05/23 16:08 Temperature Temperature Source Pulse Rate 59 L Pulse Rate [Finger] 57 L 59 L Pulse Rhythm [Finger] Regular Pulse Strength [Finger] Normal Respiratory Rate 18 16 Respiratory Effort / Characteristics Non-Labored Non-Labored Respiratory Depth Normal Normal Respiratory Pattern Regular Blood Pressure Blood Pressure [Right Arm] 158/75 H 174/87 H Blood Pressure Mean Blood Pressure Mean [Right Arm] 102 116 Blood Pressure Position Blood Pressure Position [Right Arm] Sitting Sitting Pulse Oximetry 97 98 Oxygen Delivery Method Room Air Room Air Sepsis Recent Fever Within 48 Hours Sepsis New/Unexplained Change in Mental Status Sepsis Action Taken by Nursing Laboratory Data 12/06/23 06:11 12/06/23 06:11 Lab Results 12/05/23 12/05/23 Range/Units 16:00 16:06 WBC 6.73 (4.8-10.8) K/ul RBC 5.19 (4.20-5.40) M/uL Hgb 15.3 (12.0-16.0) g/dl POC Hgb 14.3 (12.0-16.0) g/dl Hct 45.8 (37.0-47.0) % POC Hct 42 (37-47) % MCV 88.2 (80.0-100.0) fL MCH 29.5 (25.0-34.0) pg MCHC 33.4 (32.0-36.0) g/dL RDW Std Deviation 39.8 (36.4-46.3) fL RDW Coeff of Contreras 12.3 (11.5-14.5) % Plt Count 281 (130-400) K/uL MPV 10.7 (9.4-12.4) fL POC Sodium 138 (135-144) mmol/L Sodium 137 (136-145) mmol/L POC Potassium 3.9 (3.3-5.0) mmol/L Potassium 3.7 (3.5-5.1) mmol/L POC Chloride 99 L (101-112) mmol/L Chloride 100 (98-107) mmol/L Carbon Dioxide 30 (21-32) mmol/L POC Total CO2 25 (24-31) mmol/L Anion Gap 7 (3-11) POC Anion Gap 19.0 (16-25) mmol/L POC BUN 14 (7-18) mg/dl BUN 14 (6-23) mg/dl Creatinine 0.54 L (0.6-1.2) mg/dl POC Creatinine 0.6 (0.6-1.3) mg/dl Est Cr Clr Drug Dosing Not Reportable Est GFR ( Amer) 112.4 ml/min Est GFR (Non-Af Amer) 97.0 ml/min BUN/Creatinine Ratio 25.9 H (10-20) Glucose 84 (70-99(Fasting)) mg/dl POC Glucose (other) TNP Calcium 9.2 (8.6-10.3) mg/dl POC Ioniz Calcium Justin 1.24 (1.12-1.32) mmol/l Phosphorus 3.3 (2.5-4.9) mg/dl Magnesium 2.0 (1.7-2.4) mg/dl Administered Medications Acetaminophen (Acetaminophen 325 Mg Tab) 650 mg PO Q4H PRN PRN Reason: Pain or Fever Stop: 01/04/24 20:59 Last Admin: 12/06/23 11:26 Dose: 650 mg Documented By: BONI Amlodipine Besylate (Amlodipine Besylate 5 Mg Tab) 10 mg PO QPM [facility] Stop: 01/04/24 20:59 Last Admin: 12/06/23 20:03 Dose: 10 mg Documented By: Admin: 12/05/23 22:32 Dose: 10 mg Documented By: ANITA Atorvastatin Calcium (Atorvastatin 20 Mg Tab) 20 mg PO PM [facility] Stop: 01/04/24 20:59 Last Admin: 12/06/23 20:01 Dose: 20 mg Documented By: Admin: 12/05/23 22:32 Dose: 20 mg Documented By: ANITA Diazepam (Diazepam 2 Mg Tablet) 1 mg PO BID PRN PRN Reason: muscle spasm Stop: 01/04/24 20:24 Last Admin: 12/06/23 01:59 Dose: 1 mg Documented By: ANITA Donepezil HCl (Donepezil Hcl 10 Mg Tab) 10 mg PO HS [facility] Stop: 01/04/24 22:34 Last Admin: 12/06/23 20:02 Dose: 10 mg Documented By: Admin: 12/05/23 23:16 Dose: 10 mg Documented By: ANITA Famotidine (Famotidine 20 Mg Tab) 20 mg PO BID [facility] Stop: 01/04/24 20:59 Last Admin: 12/06/23 20:03 Dose: 20 mg Documented By: Admin: 12/06/23 08:40 Dose: 20 mg Documented By: Admin: 12/05/23 23:16 Dose: 20 mg Documented By: ANITA Fluoxetine HCl (Fluoxetine Hcl 20 Mg Cap) 40 mg PO QAM [facility] Stop: 01/05/24 08:59 Last Admin: 12/05/23 22:33 Dose: 40 mg Documented By: ANITA Hydralazine HCl (Hydralazine Tab 50 Mg Tab) 50 mg PO BID [facility] Stop: 01/04/24 20:59 Last Admin: 12/06/23 20:02 Dose: 50 mg Documented By: Admin: 12/06/23 08:40 Dose: 50 mg Documented By: Admin: 12/05/23 22:33 Dose: 50 mg Documented By: ANITA Sodium Chloride (Nss) 1,000 mls @ 125 mls/hr IV .Q8H [facility] Stop: 01/04/24 17:44 Last Admin: 12/06/23 19:20 Dose: 125 mls/hr Documented By: Infusion: 12/06/23 19:20 Dose: Infused Documented By: Admin: 12/06/23 11:24 Dose: 125 mls/hr Documented By: Infusion: 12/06/23 09:55 Dose: Infused Documented By: Admin: 12/06/23 01:55 Dose: 125 mls/hr Documented By: Infusion: 12/06/23 01:55 Dose: Infused Documented By: Admin: 12/05/23 17:57 Dose: 125 mls/hr Documented By: MIKALA Lidocaine (Lidocaine 5% 1 Patch) 1 patch TD HS [facility] Stop: 01/05/24 17:59 Last Admin: 12/06/23 19:20 Dose: 1 patch Documented By: CARLOS Metoprolol Succinate (Metoprolol Succ 25mg Ext Rel Tab) 75 mg PO PM [facility] Stop: 01/04/24 20:59 Last Admin: 12/06/23 20:02 Dose: 75 mg Documented By: Admin: 12/05/23 22:34 Dose: Not Given Documented By: ANITA Oxycodone HCl (Oxycodone Hcl Ir 5 Mg Tab (Immediate Release)) 5 mg PO Q8H PRN PRN Reason: pain Stop: 12/19/23 20:24 Last Admin: 12/06/23 17:03 Dose: 5 mg Documented By: Admin: 12/05/23 23:48 Dose: 5 mg Documented By: ANITA Pantoprazole Sodium (Pantoprazole 40 Mg Tab) 40 mg PO QAM [facility] Stop: 01/05/24 08:59 Last Admin: 12/06/23 09:41 Dose: 40 mg Documented By: BONI Trazodone HCl (Trazodone Hcl 50 Mg Tab) 150 mg PO QPM [facility] Stop: 01/04/24 20:59 Last Admin: 12/05/23 22:31 Dose: 150 mg Documented By: ANITA Discontinued Medications Gabapentin (Gabapentin 100 Mg Cap) 100 mg PO NOW STA Stop: 12/05/23 14:43 Last Admin: 12/05/23 15:22 Dose: 100 mg Documented By: MIKALA Acetaminophen (Ofirmev) 1,000 mg in 100 mls @ 400 mls/hr IV NOW STA Stop: 12/05/23 16:53 Last Infusion: 12/05/23 17:31 Dose: Infused Documented By: Admin: 12/05/23 17:05 Dose: 400 mls/hr Documented By: MIKALA Ketorolac Tromethamine (Ketorolac Tromethamine 15 Mg/Ml Vial) 10 mg IV NOW ONE Stop: 12/05/23 16:40 Last Admin: 12/05/23 17:05 Dose: 10 mg Documented By: MIKALA Lidocaine (Lidocaine 5% 1 Patch) 1 patch TD NOW STA Stop: 12/05/23 14:43 Last Admin: 12/05/23 14:50 Dose: 1 patch Documented By: FELTON Methylprednisolone (Methylprednisolone 4 Mg Tab) 4 mg PO NOW ONE Stop: 12/05/23 17:46 Last Admin: 12/05/23 18:05 Dose: 4 mg Documented By: MIKALA Methylprednisolone (Methylprednisolone 4 Mg Tab) 4 mg PO ONE ONE Stop: 12/06/23 13:53 Last Admin: 12/06/23 14:41 Dose: 4 mg Documented By: BONI Miscellaneous (Remove Lidoderm Patch) 1 each N/A DAILY@2100 [facility] Stop: 01/04/24 20:59 Last Admin: 12/05/23 22:35 Dose: 1 each Documented By: ANITA Discharge Plan Visit Data Chief Complaint: Referred by Doctor Stated Complaint: FULL BODY NUMBNESS AFTER MRI ED Provider: Roma Arora Discharge Problem: Acute left-sided low back pain, Left lumbar radiculopathy, Paresthesia Patient Disposition: Admitted As Inpatient Discharge Instructions Interventions: ED Discharge Assessment Last Done: 12/05/23 19:47
[2023-12-05] MEDS: ACETAMINOPHEN 1,000 MG/100 ML VIAL IV STA (17:05)
[2023-12-05] MEDS: KETOROLAC TROMETHAMINE 15 MG/ML VIAL IV ONE (17:05)
--- NOTE | 2023-12-05 17:37 | History & Physical Report ---
Date of Service December 05, 2023 Assessment & Plan (1) Left lumbar radiculopathy: Plan: - back pain, LLE pain, numbness, weakness - acute on chronic - was seen in ED previously - on 11/30 CT of lumbar spine was obtained as well as CT abd./pelvis - reportedly she was treated with steroids as outpt but apparently her back/LLE pain/numbness recurs right after medical treatment - she was ordered MRI by her PCP which was scheduled for today , she was having difficulty moving after her MRI so was sent to the ED - Lumbar spine MRI - 1. A 5 mm focal left foraminal disc protrusion at L5-S1 which abuts and compresses the exiting left L5 nerve root as described above. 2. Grade 1 anterolisthesis of L5 on S1, unchanged. 3. There is moderate central canal narrowing at L5-S1. 4. No acute fractures. - ED provider discussed MRI findings w/ ortho-spine surgeon Dr. Dang - Dr. Dang consulted - to see the pt tomorrow - in the ED pt received IV tylenol, toradol, lidocaine patch, gabapentin - will cont. home oxycodone, valium, will also give 4mg medrol now - NPO after MN (2) CAD (coronary artery disease): Plan: HTN, HLD, paroxysmal SVT - follows with [facility] [place] [facility], Dr. Dotson - cont. home meds - metoprolol succinate, amlodipine, atorvastatin, hydralazine (3) Type 2 diabetes mellitus: Plan: - Hgb A1c 5.8% as of 11/07/2023 (per outpt EMR epic review) - at home on Jardiance, hold while inpt - monitor BSG while inpt (4) GERD (gastroesophageal reflux disease): Plan: - cont. famotidine, pantoprazole DVT ppx: SCDs History of Present Illness Chief Complaint: LLE pain, numbness Primary Care Provider: Soraya Payne 68 yo F with hx of CAD, HTN, HLD, paroxysmal SVT, renal artery aneurysm, DM type 2, GERD , anterolithesis who presents with LLE pain, numbness after having MRI test done today. Pt reports this happens to her when she has to lay down or not move for a prolonged time. She was seen previously in ED for back pain and LLE pain/ numbness/ weakness. She was ordered MRI by her PCP which was scheduled for today. After her MRI she was having difficulty moving and so was sent to the ED. In the ED she received IV tylenol, toradol, gabapentin, lidocaine patch. Results of lumbar spine MRI were reviewed by ED provider and discussed with ortho-spine surgeon - Dr. Dang. Discussed to admit pt to the hospital and pt will be seen in consultation by Dr. Dang tomorrow. Pt otherwise denies any fever, chills, chest pain or shortness of breath. Allergies Allergy/AdvReac Type Severity Reaction Status Date / Time Penicillins Allergy Mild rash Verified 12/05/23 15:16 lisinopril AdvReac Intermediate Cough Unverified 12/05/23 15:16 Home Medications Medication Instructions Recorded Confirmed Type atorvastatin 20 mg tablet (Lipitor) 20 mg PO PM 07/15/19 12/05/23 History fluoxetine 40 mg capsule 40 mg PO QAM 03/09/22 12/05/23 History nitroglycerin 0.4 mg sublingual 0.4 mg sublingual UD PRN Chest Pain 03/09/22 12/05/23 History tablet metoprolol succinate 50 mg 75 mg (1.5 x 50 mg) PO PM #180 tabs 12/15/22 12/05/23 Rx tablet,extended release 24 hr diazepam 2 mg tablet (Valium) 1 mg (1/2 x 2 mg) PO BID PRN 12/01/23 12/05/23 Rx muscle spasm #4 tabs oxycodone 5 mg tablet 5 mg PO Q8H PRN pain #8 tabs 12/01/23 12/05/23 Rx acetaminophen 500 mg tablet 500 mg PO Q6H PRN PAIN/FEVER 12/05/23 12/05/23 History amlodipine 10 mg tablet 10 mg PO QPM 12/05/23 12/05/23 History celecoxib 200 mg capsule 200 mg PO QAM 12/05/23 12/05/23 History cholecalciferol (vitamin D3) 1,250 50,000 unit PO WK 12/05/23 12/05/23 History mcg (50,000 unit) capsule donepezil 10 mg tablet 10 mg PO HS 12/05/23 12/05/23 History empagliflozin 10 mg tablet 10 mg PO QAM 12/05/23 12/05/23 History (Jardiance) famotidine 20 mg tablet 20 mg PO BID PRN Acid Reflux 12/05/23 12/05/23 History hydralazine 50 mg tablet 50 mg PO BID 12/05/23 12/05/23 History imipramine HCl 50 mg tablet 50 mg PO HS 12/05/23 12/05/23 History naproxen sodium 220 mg tablet 220 mg PO BID PRN Pain 12/05/23 12/05/23 History (Aleve) ondansetron HCl 8 mg tablet 8 mg PO Q8H PRN Nausea And Vomiting 12/05/23 12/05/23 History trazodone 50 mg tablet 150 mg PO QPM 12/05/23 12/05/23 History Past Med/Surg History Problem List (Updated 12/05/23 @ 20:00 by Thi Stearns) Paresthesia (Acute) Left lumbar radiculopathy (Acute) Acute left-sided low back pain (Acute) Anterolisthesis of lumbar spine (Acute) Acute left lumbar radiculopathy (Acute) Mixed incontinence Palpitations Chest pain syndrome Change in bowel habits Abnormal CT of the abdomen Hypertension (Chronic) Chest pain (Acute) Dehydration (Acute 05/09/14) Hypokalemia (Acute) Intractable pain (Acute) Renal artery aneurysm (Acute) Abnormal stress test Paroxysmal SVT (supraventricular tachycardia) Postprocedural urinary retention CAD (coronary artery disease) COVID-19 COVID-19 (Acute) Acute hyponatremia (Acute) Aneurysm of renal artery (Acute) Abdominal pain (Acute) Colitis (Acute) Leg pain Prolonged QT interval Hyponatremia Renal artery thrombosis Rectal bleeding Abnormal CT scan, colon Tinnitus Depression with anxiety GERD (gastroesophageal reflux disease) Type 2 diabetes mellitus no meds currently Hyperlipidemia Medical History Hiatal hernia History of COVID-19 03/09/22>HOSPITALIZED FOR COVID *STOMACH PROBLEMS CONT. (REASON FOR DX) CAD (coronary artery disease) Myocardial perfusion study 08/02/19 shows evidence of prior infarct in LAD territory. Patient did not report h/o MD. Hx of Lyme disease Osteoarthritis Hypertension Surgical History History of esophagogastroduodenoscopy (EGD) History of total left knee replacement History of cardiac cath ~10yrs ago for abnormal stress test. No stents. Pt reports she was told she had a 45% blockage in one artery.>FOLLOWED BY DR. DOTSON Nausea and vomiting after administration of anesthetic agent History of total right knee replacement Hx of section X 1 Hx of oophorectomy Hx of colonoscopy Hx of total hysterectomy Status post tonsillectomy and adenoidectomy (05/09/14) Family History Unknown No family history of adverse response to anesthesia Other Heart disease Stroke Social History Smoking Status: Never smoker Second Hand Exposure: No; Do You Dip or Chew Tobacco: No; Tobacco Cessation Education Requested by Patient: No Hx Alcohol Use: Yes Hx Substance Use: No Preferred Language: Burundian Communication Ability: Effective Visual Impairment: No Limitations Line Service Person Required: No Beliefs That Will Affect Care: Christian marital status: Current Living Situation: Alone Other Information That Helps Us Care for You: No Feels Safe at Home: Yes Safety Concerns: Feels Safe At This Time Assistive Devices: Glasses Review of Systems Review of Systems: All systems reviewed & are unremarkable except as noted in Subjective Physical Exam Constitutional: WD/WN, vitals as above Eyes: PERRL, conjunctivae normal, anicteric sclerae ENMT: external ear and nose normal, oropharynx normal Neck: trachea midline, no thyromegaly Respiratory: normal respiratory effort, lungs clear to auscultation Cardiovascular: RRR, no murmur, no edema Chest (Breasts): Chest: normal inspection of chest Gastrointestinal (Abdomen): normal bowel sounds, soft, nontender, no hepatosplenomegaly Musculoskeletal: Head/Neck/Chest: normocephalic, head atraumatic and neck supple Extremities: extremities normal to inspection (able to move LEs while laying in bed) Skin: no rashes, warm and dry Neurologic: PERRL, EOMI, accommodation nl, no face palsy, no dysarthria Psychiatric: A+Ox3, euthymic affect Lymphatic: no lymphedema Results & Data Results & Data Vital Signs (Past 12 Hours) Vital Signs Temp Pulse Pulse Resp BP BP Pulse Ox 12/05/23 16:08 59 L 12/05/23 16:00 59 L 16 174/87 H 98 12/05/23 14:30 57 L 18 158/75 H 97 12/05/23 14:01 57 L 18 148/73 H 98 12/05/23 13:40 60 16 138/81 99 12/05/23 13:15 36.5 C 62 18 148/71 H 99 O2 Del Method 12/05/23 16:08 12/05/23 16:00 Room Air 12/05/23 14:30 Room Air 12/05/23 14:01 Room Air 12/05/23 13:40 Room Air 12/05/23 13:15 Room Air Laboratory Results 12/05/23 Range/Units 16:00 WBC 6.73 (4.8-10.8) K/ul RBC 5.19 (4.20-5.40) M/uL Hgb 15.3 (12.0-16.0) g/dl Hct 45.8 (37.0-47.0) % MCV 88.2 (80.0-100.0) fL MCH 29.5 (25.0-34.0) pg MCHC 33.4 (32.0-36.0) g/dL RDW Std Deviation 39.8 (36.4-46.3) fL RDW Coeff of Contreras 12.3 (11.5-14.5) % Plt Count 281 (130-400) K/uL MPV 10.7 (9.4-12.4) fL Sodium 137 (136-145) mmol/L Potassium 3.7 (3.5-5.1) mmol/L Chloride 100 (98-107) mmol/L Carbon Dioxide 30 (21-32) mmol/L Anion Gap 7 (3-11) BUN 14 (6-23) mg/dl Creatinine 0.54 L (0.6-1.2) mg/dl Est Cr Clr Drug Dosing Not Reportable Est GFR ( Amer) 112.4 ml/min Est GFR (Non-Af Amer) 97.0 ml/min BUN/Creatinine Ratio 25.9 H (10-20) Glucose 84 (70-99(Fasting)) mg/dl Calcium 9.2 (8.6-10.3) mg/dl Phosphorus 3.3 (2.5-4.9) mg/dl Magnesium 2.0 (1.7-2.4) mg/dl Diagnostic Findings Lumbar MRI FINDINGS: For the purpose of the report the L5-S1 disc space will be located on axial image 27 of 35. S1 is demonstrated to be a transitional vertebra with a hypoplastic S1-S2 disc space. There is 4 mm of anterolisthesis of L5 on S1, unchanged. Moderate disc space narrowing at L5-S1 again noted. The remaining disc spaces are preserved. No acute fractures. The visualized sacrum is intact. Severe facet degenerative changes at L5 S1 1. Mild facet degenerative changes throughout the remaining lumbar spine. Paravertebral soft tissues are unremarkable. Mild edema and enhancement surrounding the lower lumbar spine facets likely due to the long- standing degenerative change. The conus terminates at the L1-L2 disc space level. L1-L2: No significant central canal or neural foraminal narrowing. L2-L3: No significant central canal or neural foraminal narrowing. L3-L4: No significant central canal or neural foraminal narrowing. L4-L5: Small broad-based posterior disc bulge with mild ligamentum flavum and facet hypertrophy. There is also a small left extraforaminal annular tear. No disc herniations. No significant central canal or neural foraminal narrowing. L5-S1: Broad-based posterior disc bulge with ligamentum and facet hypertrophy resulting in moderate central canal narrowing with an AP diameter of 7 mm. Severe right and moderate left lateral recess narrowing due to the disc bulge and facet hypertrophy. There is moderate right and severe left neural foraminal narrowing. Additionally, best seen on sagittal image 13 there is a 5 mm focal left foraminal disc protrusion which abuts and compresses the exiting left L5 nerve root at this level. This is also identified on axial image 26. IMPRESSION: 1. A 5 mm focal left foraminal disc protrusion at L5-S1 which abuts and compresses the exiting left L5 nerve root as described above. 2. Grade 1 anterolisthesis of L5 on S1, unchanged. 3. There is moderate central canal narrowing at L5-S1. 4. No acute fractures. Brain MRI FINDINGS: There is no mass, hematoma, midline shift, or acute infarct. The paranasal sinuses are clear. The ventricles and sulci demonstrate mild age- related involutional changes. Scattered foci of T2 hyperintensity seen within the periventricular and subcortical white matter are nonspecific but suggestive of mild microvascular ischemic changes. The major vascular flow voids at the skull base are well-maintained. Trace bilateral mastoid effusions are noted. Prior bilateral lens replacement. IMPRESSION: 1. No acute intracranial abnormality. 2. Scattered foci of T2 hyperintensity seen within the periventricular and subcortical white matter are nonspecific but favor mild microvascular ischemic change. Lumbar CT (11/30) FINDINGS: Lower chest: Bibasilar atelectasis versus scarring is seen. Liver: Unremarkable. No focal lesions are seen. Gallbladder and biliary tree: No calcified gallstones. Normal caliber wall. No intra- or extrahepatic biliary ductal dilation. Pancreas: Unremarkable, no focal lesions. Spleen: Calcification is seen about the spleen. Adrenals: Unremarkable. Kidneys and ureters: Left renal arterial calcified aneurysm is seen. Bladder: Limited evaluation due to underdistention. Reproductive organs: Unremarkable. Bowel: A hiatal hernia is seen. Lymph nodes Retroperitoneal: Unremarkable. Pelvic: Unremarkable. Mesenteric: Unremarkable. Peritoneum: Normal. Vessels: Atherosclerotic calcifications are seen. Abdominal wall: Unremarkable. Bones: L5-S1 grade 1 anterolisthesis is seen. IMPRESSION: No acute abnormalities to explain back and hip pain, in particular no acute fracture. CT Abdomen/pelvis (11/30) FINDINGS: Lower chest: Bibasilar atelectasis versus scarring is seen. Liver: Unremarkable. No focal lesions are seen. Gallbladder and biliary tree: No calcified gallstones. Normal caliber wall. No intra- or extrahepatic biliary ductal dilation. Pancreas: Unremarkable, no focal lesions. Spleen: Calcification is seen about the spleen. Adrenals: Unremarkable. Kidneys and ureters: Left renal arterial calcified aneurysm is seen. Bladder: Limited evaluation due to underdistention. Reproductive organs: Unremarkable. Bowel: A hiatal hernia is seen. Lymph nodes Retroperitoneal: Unremarkable. Pelvic: Unremarkable. Mesenteric: Unremarkable. Peritoneum: Normal. Vessels: Atherosclerotic calcifications are seen. Abdominal wall: Unremarkable. Bones: L5-S1 grade 1 anterolisthesis is seen.
[2023-12-05] MEDS ORDERED: POLYETHYLENE (MIRALAX) 17 GM PACK PO PRN (17:39)
[2023-12-05 17:55] LABS: Hematocrit (blood only) 45.8 % (37.0-47.0); Hemoglobin 15.3 g/dl (12.0-16.0); Mean Corpuscular Hemoglobin 29.5 pg (25.0-34.0); Mean Corpuscular Hgb Conc 33.4 g/dL (32.0-36.0); Mean Corpuscular Volume 88.2 fL (80.0-100.0); Mean Platelet Volume 10.7 fL (9.4-12.4); Platelet Count 281 K/uL (130-400); RDW Coefficient of Variation 12.3 % (11.5-14.5); RDW Standard Deviation 39.8 fL (36.4-46.3); Red Blood Count 5.19 M/uL (4.20-5.40); White Blood Count 6.73 K/ul (4.8-10.8)
[2023-12-05] MEDS: SODIUM CHLORIDE 0.9% 1,000 ML IV SCH (17:57)
[2023-12-05 18:00] LABS: Anion Gap 7 (3-11); BUN Creatinine Ratio 25.9 (10-20); Blood Urea Nitrogen 14 mg/dl (6-23); Calcium 9.2 mg/dl (8.6-10.3); Carbon Dioxide 30 mmol/L (21-32); Chloride 100 mmol/L (98-107); Est GFR (African American) 112.4 ml/min; Glucose 84 mg/dl (70-99(Fasting)); Phosphorus 3.3 mg/dl (2.5-4.9); Potassium 3.7 mmol/L (3.5-5.1); Sodium 137 mmol/L (136-145)
[2023-12-05] MEDS: methylPREDNISolone 4 MG TAB PO ONE (18:05)
[2023-12-05] MEDS ORDERED: NITROGLYCERIN SL 0.4 MG/TAB TAB SL PRN (20:25)
[2023-12-05] MEDS: traZODone HCL 50 MG TAB PO SCH (22:31)
[2023-12-05] MEDS: amLODIPine BESYLATE 5 MG TAB PO SCH (22:32)
[2023-12-05] MEDS: ATORVASTATIN 20 MG TAB PO SCH (22:32)
[2023-12-05] MEDS: FLUoxetine HCL 20 MG CAP PO SCH (22:33)
[2023-12-05] MEDS: hydrALAZINE TAB 50 MG TAB PO SCH (22:33)
[2023-12-05] MEDS: METOPROLOL SUCC 25MG EXT REL TAB PO SCH (22:34)
[2023-12-05 23:00] LABS: Appearance Urine Clear (Clear); Bilirubin Urine Negative (Negative); Blood Urine Negative (Negative); Color Urine Yellow; Glucose Urine UA 2+ (Negative); Ketones Urine Negative (Negative); Leukocyte Esterase Urine Negative (Negative); Nitrite Urine Negative (Negative); Protein Urine Negative (Negative); Specific Gravity Urine 1.019 (1.000-1.030); Urobilinogen Urine Negative (Negative); pH Urine >= 9.0 (4.5-7.5)
[2023-12-05] MEDS: DONEPEZIL HCL 10 MG TAB PO SCH (23:16)
[2023-12-05] MEDS: FAMOTIDINE 20 MG TAB PO SCH (23:16)
[2023-12-05] MEDS: oxyCODONE HCL IR 5 MG TAB (IMMEDIATE RELEASE) PO PRN (23:48)
[2023-12-06] MEDS: diazePAM 2 MG TABLET PO PRN (01:59)
[2023-12-06 06:53] LABS: Hematocrit (blood only) 44.5 % (37.0-47.0); Mean Corpuscular Hemoglobin 29.5 pg (25.0-34.0); Mean Corpuscular Hgb Conc 33.7 g/dL (32.0-36.0); Mean Corpuscular Volume 87.4 fL (80.0-100.0); Platelet Count 279 K/uL (130-400); RDW Coefficient of Variation 12.3 % (11.5-14.5); RDW Standard Deviation 39.6 fL (36.4-46.3); Red Blood Count 5.09 M/uL (4.20-5.40); White Blood Count 7.42 K/ul (4.8-10.8)
[2023-12-06 07:12] LABS: BUN Creatinine Ratio 22.2 (10-20); Calcium 8.5 mg/dl (8.6-10.3); Creatinine Clr Calc Pharmacy 119.8 ml/min; Est GFR (African American) 119.3 ml/min; Magnesium 2.1 mg/dl (1.7-2.4); Phosphorus 3.6 mg/dl (2.5-4.9); Potassium 3.9 mmol/L (3.5-5.1)
[2023-12-06] MEDS: PANTOprazole 40 MG TAB PO SCH (09:41)
[2023-12-06] MEDS: ACETAMINOPHEN 325 MG TAB PO PRN (11:26)
[2023-12-06 12:17] LABS: iSTAT Blood Urea Nitrogen 14 mg/dl (7-18); iSTAT Carbon Dioxide 25 mmol/L (24-31); iSTAT Chloride 99 mmol/L (101-112); iSTAT Creatinine 0.6 mg/dl (0.6-1.3); iSTAT Hematocrit 42 % (37-47); iSTAT Hemoglobin 14.3 g/dl (12.0-16.0); iSTAT Ionized Calcium 1.24 mmol/l (1.12-1.32); iSTAT Potassium 3.9 mmol/L (3.3-5.0); iSTAT Sodium 138 mmol/L (135-144)
--- NOTE | 2023-12-06 13:16 | Orthopedic Consultation ---
Date of Consultation December 06, 2023 Assessment & Plan (1) Lumbar disc herniation with radiculopathy: MRI lumbar spine available for review does demonstrate evidence of a grade 1 spondylolisthesis L4-5 with foraminal disc herniation on the left. There is marked facet hypertrophy noted and severe neural compression of the exiting L5 nerve root on the left. Plan and discussion today reviewing her clinical presentation and imaging findings. At this point she could consider a course of epidural injections to see if this controls her component of her pain. Ultimately if these are unsuccessful or if she is still unable to ambulate after therapy in the hospital we may need to consider surgical invention. Would require a lumbar decompression and fusion L5-S1. History of Present Illness Reason for Consultation: Back and left leg pain Attending Physician: Edi Rodriguez MD History of Present Illness This is a very pleasant 60-year-old female who presents yesterday with severe left leg pain and inability to ambulate. She states the symptoms began approximately 3 weeks ago after power washing her home. The symptoms have progressed since that time. She underwent an MRI yesterday and when the scan was complete was unable to ambulate secondary to severe sciatica. It radiates to the left buttock posterior thigh into her foot. Right lower extremity is asymptomatic. She describes breakaway weakness particularly in the quadricep on the left. She notes sensory deficit numbness and tingling on the left. She has had lumbar injections many years ago. She is managed by chiropractor regularly. Allergies Allergy/AdvReac Type Severity Reaction Status Date / Time Penicillins Allergy Mild rash Verified 12/05/23 15:16 lisinopril AdvReac Intermediate Cough Unverified 12/05/23 15:16 Home Medications Medication Instructions Recorded Confirmed Type atorvastatin 20 mg tablet (Lipitor) 20 mg PO PM 07/15/19 12/05/23 History fluoxetine 40 mg capsule 40 mg PO QAM 03/09/22 12/05/23 History nitroglycerin 0.4 mg sublingual 0.4 mg sublingual UD PRN Chest Pain 03/09/22 12/05/23 History tablet metoprolol succinate 50 mg 75 mg (1.5 x 50 mg) PO PM #180 tabs 12/15/22 12/05/23 Rx tablet,extended release 24 hr diazepam 2 mg tablet (Valium) 1 mg (1/2 x 2 mg) PO BID PRN 12/01/23 12/05/23 Rx muscle spasm #4 tabs oxycodone 5 mg tablet 5 mg PO Q8H PRN pain #8 tabs 12/01/23 12/05/23 Rx acetaminophen 500 mg tablet 500 mg PO Q6H PRN PAIN/FEVER 12/05/23 12/05/23 History amlodipine 10 mg tablet 10 mg PO QPM 12/05/23 12/05/23 History celecoxib 200 mg capsule 200 mg PO QAM 12/05/23 12/05/23 History cholecalciferol (vitamin D3) 1,250 50,000 unit PO WK 12/05/23 12/05/23 History mcg (50,000 unit) capsule donepezil 10 mg tablet 10 mg PO HS 12/05/23 12/05/23 History empagliflozin 10 mg tablet 10 mg PO QAM 12/05/23 12/05/23 History (Jardiance) famotidine 20 mg tablet 20 mg PO BID PRN Acid Reflux 12/05/23 12/05/23 History hydralazine 50 mg tablet 50 mg PO BID 12/05/23 12/05/23 History imipramine HCl 50 mg tablet 50 mg PO HS 12/05/23 12/05/23 History naproxen sodium 220 mg tablet 220 mg PO BID PRN Pain 12/05/23 12/05/23 History (Aleve) ondansetron HCl 8 mg tablet 8 mg PO Q8H PRN Nausea And Vomiting 12/05/23 12/05/23 History trazodone 50 mg tablet 150 mg PO QPM 12/05/23 12/05/23 History Patient History Medical History Hiatal hernia History of COVID-19 03/09/22>HOSPITALIZED FOR COVID *STOMACH PROBLEMS CONT. (REASON FOR DX) CAD (coronary artery disease) Myocardial perfusion study 08/02/19 shows evidence of prior infarct in LAD territory. Patient did not report h/o [place]. Hx of Lyme disease Osteoarthritis Hypertension Surgical History History of esophagogastroduodenoscopy (EGD) History of total left knee replacement History of cardiac cath ~10yrs ago for abnormal stress test. No stents. Pt reports she was told she had a 45% blockage in one artery.>FOLLOWED BY DR. DOTSON Nausea and vomiting after administration of anesthetic agent History of total right knee replacement Hx of section X 1 Hx of oophorectomy Hx of colonoscopy Hx of total hysterectomy Status post tonsillectomy and adenoidectomy (05/09/14) Family History Unknown No family history of adverse response to anesthesia Other Heart disease Stroke Social History Smoking Status: Never smoker Second Hand Exposure: No; Do You Dip or Chew Tobacco: No; Hx Alcohol Use: Yes Hx Substance Use: No Preferred Language: Frisian Communication Ability: Effective Visual Impairment: No Limitations Director Of Intelligence Required: No Beliefs That Will Affect Care: Protestant marital status: Current Living Situation: Alone Feels Safe at Home: Yes Assistive Devices: Glasses Physical Exam Physical Exam: On exam patient is currently in bed. She exhibits a 5/5 right plantarflexion dorsiflexion quadriceps. There is a 4+ left dorsiflexion extensor houses longus quadriceps appears to be 5/5. There is sensory deficits to light touch along the left lower extremity compared to the right. Deep tendon flexes are diminished. Results & Data Vital Signs (Past 12 Hours) Vital Signs Temp Pulse Pulse Resp BP BP Pulse Ox 12/06/23 11:20 36.3 C L 73 14 143/76 H 99 12/06/23 07:48 50 L 12/06/23 07:22 36.5 C 62 14 123/76 98 12/06/23 03:03 36.5 C 69 18 104/61 96 O2 Del Method 12/06/23 11:20 Room Air 12/06/23 07:48 12/06/23 07:22 Room Air 12/06/23 03:03 Room Air
[2023-12-06] MEDS: methylPREDNISolone 4 MG TAB PO ONE (14:41)
--- NOTE | 2023-12-06 15:54 | Hospitalist Progress Note ---
Date of Service December 06, 2023 Assessment & Plan (1) Left lumbar radiculopathy: Plan: Lumbar disc herniation with radiculopathy - back pain, LLE pain, numbness, weakness - acute on chronic - was seen in ED previously - on 11/30 CT of lumbar spine was obtained as well as CT abd./pelvis - reportedly she was treated with steroids as outpt but apparently her back/LLE pain/numbness recurs right after medical treatment - she was ordered MRI by her PCP which was scheduled for today (day of admission), she was having difficulty moving after her MRI so was sent to the ED - Lumbar spine MRI - 1. A 5 mm focal left foraminal disc protrusion at L5-S1 which abuts and compresses the exiting left L5 nerve root as described above. 2. Grade 1 anterolisthesis of L5 on S1, unchanged. 3. There is moderate central canal narrowing at L5-S1. 4. No acute fractures. - ED provider discussed MRI findings w/ ortho-spine surgeon Dr. Dang - in the ED pt received IV tylenol, toradol, lidocaine patch, gabapentin - cont. home oxycodone, valium, will also give 4mg medrol - Dr. Dang consulted - MRI lumbar spine available for review does demonstrate evidence of a grade 1 spondylolisthesis L4-5 with foraminal disc herniation on the left. There is marked facet hypertrophy noted and severe neural compression of the exiting L5 nerve root on the left. Plan and discussion today reviewing her clinical presentation and imaging findings. At this point she could consider a course of epidural injections to see if this controls her component of her pain. Ultimately if these are unsuccessful or if she is still unable to ambulate after therapy in the hospital we may need to consider surgical intervention. Would require a lumbar decompression and fusion L5-S1. (2) CAD (coronary artery disease): Plan: HTN, HLD, paroxysmal SVT - [place] [facility] [place], Dr. Ramsey - cont. home meds - metoprolol succinate, amlodipine, atorvastatin, hydralazine (3) Type 2 diabetes mellitus: Plan: - Hgb A1c 5.8% as of 11/07/2023 (per outpt EMR epic review) - at home on Jardiance, hold while inpt - monitor BSG while inpt (4) GERD (gastroesophageal reflux disease): Plan: - cont. famotidine, pantoprazole Depression/anxiety - reports feeling more anxious/ depressed since her passed - requests to see psych - consult placed DVT ppx: SCDs Admission and Anticipated Discharge Date Admission Date: December 05, 2023 Subjective Pt seen in follow up of back pain/ LLE pain/ numbness She is feeling better today, pain/numbness improved now ortho-spine consulted Pt denies any fever, chills, chest pain, shortness of breath or abd. pain Feels anxious/ depressed at times - reports relatively recent of her , asks for psychiatry consult Review of Systems Review of Systems: All systems reviewed & are unremarkable except as noted in Subjective Physical Exam Physical Exam: Constitutional: WD/WN, vitals as a issa Eyes: PERRL, conjunctiva e normal, anicteri c sclerae ENMT: external ear and n ose normal, oropha rynx normal Neck: supple Respiratory: normal respiratory effort, lungs harman ar to auscultation Cardiovascular: RRR, no murmur, no edema Chest (Breasts): Chest: normal insp ection of chest Gastrointestinal ( Abdomen): normal bowel sound s, soft, nontender Musculoskeletal: Head/Neck/Chest: n ormocephalic, head atraumatic and ne ck supple Extremi ties: extremities normal to inspecti on (able to move L Es while laying in bed) Skin: no rashes, warm an d dry Neurologic: PERRL, EOMI, no fa ce palsy, no dysar thria, moves extre mities Psychiatric: A+Ox3, euthymic af fect Lymphatic: no lymphedema Results & Data Results & Data Vital Signs (Past 12 Hours) Vital Signs Temp Pulse Pulse Resp BP Pulse Ox O2 Del Method 12/06/23 15:08 36.6 C 63 13 115/73 98 Room Air 12/06/23 14:12 82 12/06/23 11:20 36.3 C L 73 14 143/76 H 99 Room Air 12/06/23 07:48 50 L 12/06/23 07:22 36.5 C 62 14 123/76 98 Room Air Laboratory Results 12/06/23 12/05/23 12/05/23 Range/Units 06:11 22:45 16:06 WBC 7.42 (4.8-10.8) K/ul RBC 5.09 (4.20-5.40) M/uL Hgb 15.0 (12.0-16.0) g/dl POC Hgb 14.3 (12.0-16.0) g/dl Hct 44.5 (37.0-47.0) % POC Hct 42 (37-47) % MCV 87.4 (80.0-100.0) fL MCH 29.5 (25.0-34.0) pg MCHC 33.7 (32.0-36.0) g/dL RDW Std Deviation 39.6 (36.4-46.3) fL RDW Coeff of Contreras 12.3 (11.5-14.5) % Plt Count 279 (130-400) K/uL MPV 10.0 (9.4-12.4) fL POC Sodium 138 (135-144) mmol/L Sodium 139 (136-145) mmol/L POC Potassium 3.9 (3.3-5.0) mmol/L Potassium 3.9 (3.5-5.1) mmol/L POC Chloride 99 L (101-112) mmol/L Chloride 107 (98-107) mmol/L Carbon Dioxide 24 (21-32) mmol/L POC Total CO2 25 (24-31) mmol/L Anion Gap 8 (3-11) POC Anion Gap 19.0 (16-25) mmol/L POC BUN 14 (7-18) mg/dl BUN 10 (6-23) mg/dl Creatinine 0.45 L (0.6-1.2) mg/dl POC Creatinine 0.6 (0.6-1.3) mg/dl Est Cr Clr Drug Dosing 119.8 Est GFR ( Amer) 119.3 ml/min Est GFR (Non-Af Amer) 103.0 ml/min BUN/Creatinine Ratio 22.2 H (10-20) Glucose 88 (70-99(Fasting)) mg/dl POC Glucose (other) TNP Calcium 8.5 L (8.6-10.3) mg/dl POC Ioniz Calcium Justin 1.24 (1.12-1.32) mmol/l Phosphorus 3.6 (2.5-4.9) mg/dl Magnesium 2.1 (1.7-2.4) mg/dl Urine Color Yellow Urine Appearance Clear (Clear) Urine pH >= 9.0 H (4.5-7.5) Ur Specific [place] 1.019 (1.000-1.030) Urine Protein Negative (Negative) Urine Glucose (UA) 2+ H (Negative) Urine Ketones Negative (Negative) Urine Blood Negative (Negative) Urine Nitrite Negative (Negative) Urine Bilirubin Negative (Negative) Urine Urobilinogen Negative (Negative) Ur Leukocyte Esterase Negative (Negative) 12/05/23 Range/Units 16:00 WBC 6.73 (4.8-10.8) K/ul RBC 5.19 (4.20-5.40) M/uL Hgb 15.3 (12.0-16.0) g/dl POC Hgb (12.0-16.0) g/dl Hct 45.8 (37.0-47.0) % POC Hct (37-47) % MCV 88.2 (80.0-100.0) fL MCH 29.5 (25.0-34.0) pg MCHC 33.4 (32.0-36.0) g/dL RDW Std Deviation 39.8 (36.4-46.3) fL RDW Coeff of Contreras 12.3 (11.5-14.5) % Plt Count 281 (130-400) K/uL MPV 10.7 (9.4-12.4) fL POC Sodium (135-144) mmol/L Sodium 137 (136-145) mmol/L POC Potassium (3.3-5.0) mmol/L Potassium 3.7 (3.5-5.1) mmol/L POC Chloride (101-112) mmol/L Chloride 100 (98-107) mmol/L Carbon Dioxide 30 (21-32) mmol/L POC Total CO2 (24-31) mmol/L Anion Gap 7 (3-11) POC Anion Gap (16-25) mmol/L POC BUN (7-18) mg/dl BUN 14 (6-23) mg/dl Creatinine 0.54 L (0.6-1.2) mg/dl POC Creatinine (0.6-1.3) mg/dl Est Cr Clr Drug Dosing Not Reportable Est GFR ( Amer) 112.4 ml/min Est GFR (Non-Af Amer) 97.0 ml/min BUN/Creatinine Ratio 25.9 H (10-20) Glucose 84 (70-99(Fasting)) mg/dl POC Glucose (other) Calcium 9.2 (8.6-10.3) mg/dl POC Ioniz Calcium Justin (1.12-1.32) mmol/l Phosphorus 3.3 (2.5-4.9) mg/dl Magnesium 2.0 (1.7-2.4) mg/dl Urine Color Urine Appearance (Clear) Urine pH (4.5-7.5) Ur Specific [place] (1.000-1.030) Urine Protein (Negative) Urine Glucose (UA) (Negative) Urine Ketones (Negative) Urine Blood (Negative) Urine Nitrite (Negative) Urine Bilirubin (Negative) Urine Urobilinogen (Negative) Ur Leukocyte Esterase (Negative) Medications Administered Current Inpatient Medications Acetaminophen (Acetaminophen 325 Mg Tab) 650 mg PO Q4H PRN PRN Reason: Pain or Fever Stop: 01/04/24 20:59 Last Admin: 12/06/23 11:26 Dose: 650 mg Amlodipine Besylate (Amlodipine Besylate 5 Mg Tab) 10 mg PO QPM [facility] Stop: 01/04/24 20:59 Last Admin: 12/05/23 22:32 Dose: 10 mg Atorvastatin Calcium (Atorvastatin 20 Mg Tab) 20 mg PO PM MARIAN Stop: 01/04/24 20:59 Last Admin: 12/05/23 22:32 Dose: 20 mg Diazepam (Diazepam 2 Mg Tablet) 1 mg PO BID PRN PRN Reason: muscle spasm Stop: 01/04/24 20:24 Last Admin: 12/06/23 01:59 Dose: 1 mg Donepezil HCl (Donepezil Hcl 10 Mg Tab) 10 mg PO HS [facility] Stop: 01/04/24 22:34 Last Admin: 12/05/23 23:16 Dose: 10 mg Famotidine (Famotidine 20 Mg Tab) 20 mg PO BID MARIAN Stop: 01/04/24 20:59 Last Admin: 12/06/23 08:40 Dose: 20 mg Fluoxetine HCl (Fluoxetine Hcl 20 Mg Cap) 40 mg PO QAM [facility]IAN Stop: 01/05/24 08:59 Last Admin: 12/05/23 22:33 Dose: 40 mg Hydralazine HCl (Hydralazine Tab 50 Mg Tab) 50 mg PO BID MARIAN Stop: 01/04/24 20:59 Last Admin: 12/06/23 08:40 Dose: 50 mg Sodium Chloride (Nss) 1,000 mls @ 125 mls/hr IV .Q8H [facility] Stop: 01/04/24 17:44 Last Admin: 12/06/23 11:24 Dose: 125 mls/hr Metoprolol Succinate (Metoprolol Succ 25mg Ext Rel Tab) 75 mg PO PM MARIAN Stop: 01/04/24 20:59 Last Admin: 12/05/23 22:34 Dose: Not Given Miscellaneous (Remove Lidoderm Patch) 1 each N/A DAILY@2100 [facility] Stop: 01/04/24 20:59 Last Admin: 12/05/23 22:35 Dose: 1 each Nitroglycerin (Nitroglycerin Sl 0.4 Mg/Tab Tab) 0.4 mg SL UD PRN PRN Reason: Chest Pain Stop: 01/04/24 20:24 Oxycodone HCl (Oxycodone Hcl Ir 5 Mg Tab (Immediate Release)) 5 mg PO Q8H PRN PRN Reason: pain Stop: 12/19/23 20:24 Last Admin: 12/05/23 23:48 Dose: 5 mg Pantoprazole Sodium (Pantoprazole 40 Mg Tab) 40 mg PO QAM [facility] Stop: 01/05/24 08:59 Last Admin: 12/06/23 09:41 Dose: 40 mg Polyethylene Glycol (Polyethylene (Miralax) 17 Gm Pack) 17 gm PO DAILY PRN PRN Reason: Constipation Stop: 01/04/24 17:38 Trazodone HCl (Trazodone Hcl 50 Mg Tab) 150 mg PO QPM [facility] Stop: 01/04/24 20:59 Last Admin: 12/05/23 22:31 Dose: 150 mg
[2023-12-06] MEDS: LIDOCAINE 5% 1 PATCH TD SCH (19:20)
[2023-12-07 08:10] LABS: Hematocrit (blood only) 43.7 % (37.0-47.0); Hemoglobin 14.4 g/dl (12.0-16.0); Mean Corpuscular Hemoglobin 29.3 pg (25.0-34.0); Mean Corpuscular Volume 88.8 fL (80.0-100.0); Mean Platelet Volume 10.2 fL (9.4-12.4); Platelet Count 273 K/uL (130-400); RDW Coefficient of Variation 12.6 % (11.5-14.5); RDW Standard Deviation 41.1 fL (36.4-46.3); Red Blood Count 4.92 M/uL (4.20-5.40); White Blood Count 6.57 K/ul (4.8-10.8)
[2023-12-07 08:30] LABS: Calcium 8.7 mg/dl (8.6-10.3); Creatinine Clr Calc Pharmacy 114.8 ml/min; Est GFR (African American) 117.6 ml/min; Est GFR (Non-African American) 101.5 ml/min; Magnesium 1.9 mg/dl (1.7-2.4); Phosphorus 2.9 mg/dl (2.5-4.9); Potassium 3.6 mmol/L (3.5-5.1)
--- NOTE | 2023-12-07 08:40 | Orthopedic Progress Note ---
Date of Service December 07, 2023 Assessment & Plan (1) Lumbar disc herniation with radiculopathy: Plan: Assessment lumbar spondylolisthesis L5-S1 with foraminal disc herniation on the left. Plan at this time a lengthy discussion today with the patient reviewing her clinical course and treatment options. This point light of her pain and failure to respond after 3 weeks of oral steroids she would like to pursue surgical intervention. Would require a lumbar decompression and fusion L5-S1. This would address her instability as well as the foraminal extraforaminal disc herniation on the left. Risk benefits pros cons and alternatives were all in detail. Risk include but not limited to anesthesia blindness stroke paralysis nerve damage blood loss or chronic infusion infection requiring reoperation benefits hopefully be marked improvement of radiculopathy and function. This time she was made n.p.o. after midnight plan for surgery tomorrow. Admission and Anticipated Discharge Date Admission Date: December 05, 2023 Subjective Patient continues to have significant left leg numbness tingling and pain. Markedly limiting her ability to stand and ambulate. She continues to have sensation of weakness and risk of fall. Physical Exam Physical Exam: On exam she is able to ambulate to her bed. She exhibits tension signs straight leg raising on the left with breakaway weakness to the quadriceps on the left. Results & Data Vital Signs (Past 12 Hours) Vital Signs Temp Pulse Pulse Resp BP BP Pulse Ox 12/07/23 08:03 36.5 C 52 L 16 117/71 98 12/07/23 07:21 54 L 12/07/23 03:24 36.7 C 63 18 110/71 95 12/07/23 00:00 64 12/06/23 23:50 36.5 C 69 18 103/85 96 O2 Del Method 12/07/23 08:03 Room Air 12/07/23 07:21 12/07/23 03:24 Room Air 12/07/23 00:00 12/06/23 23:50 Room Air
[2023-12-07] MEDS: methylPREDNISolone 4 MG TAB PO SCH (08:50)
--- NOTE | 2023-12-07 10:13 | Hospitalist Progress Note ---
Date of Service December 07, 2023 Assessment & Plan (1) Left lumbar radiculopathy: Plan: Lumbar disc herniation with radiculopathy - back pain, LLE pain, numbness, weakness - acute on chronic - was seen in ED previously - on 11/30 CT of lumbar spine was obtained as well as CT abd./pelvis - reportedly she was treated with steroids as outpt but apparently her back/LLE pain/numbness recurs right after medical treatment - she was ordered MRI by her PCP which was scheduled for (day of admission), she was having difficulty moving after her MRI so was sent to the ED - Lumbar spine MRI - 1. A 5 mm focal left foraminal disc protrusion at L5-S1 which abuts and compresses the exiting left L5 nerve root as described above. 2. Grade 1 anterolisthesis of L5 on S1, unchanged. 3. There is moderate central canal narrowing at L5-S1. 4. No acute fractures. - ED provider discussed MRI findings w/ ortho-spine surgeon Dr. Dang - in the ED pt received IV tylenol, toradol, lidocaine patch, gabapentin - cont. home oxycodone, valium, also started with 4mg medrol - Dr. Dang consulted - MRI lumbar spine available for review does demonstrate evidence of a grade 1 spondylolisthesis L4-5 with foraminal disc herniation on the left. There is marked facet hypertrophy noted and severe neural compression of the exiting L5 nerve root on the left. Patient continues to have significant symptoms and so would recommend lumbar decompression and fusion L5-S1. Plan for surgery tmrw (12/08/23). Pt NPO after MN - will obtain CXR, ECG - pre-op (2) CAD (coronary artery disease): Plan: HTN, HLD, paroxysmal SVT - follows with [facility] [place] cardiology, Dr. Ramsey - cont. home meds - metoprolol succinate, amlodipine, atorvastatin, hydralazine (3) Type 2 diabetes mellitus: Plan: - Hgb A1c 5.8% as of 11/07/2023 (per outpt EMR epic review) - at home on Jardiance, hold while inpt - monitor BSG while inpt (4) GERD (gastroesophageal reflux disease): Plan: - cont. famotidine, pantoprazole Depression/anxiety - has been feeling more anxious/ depressed since her passed - requested to see psych - consult placed and pt seen by psych liaison -> pt would like outpt follow up/ evaluation DVT ppx: SCDs Admission and Anticipated Discharge Date Admission Date: December 05, 2023 Subjective Pt seen in follow up of back pain/ LLE pain/ numbness ortho-spine consulted - plan for OR tmrw Pt denies any fever, chills, chest pain, shortness of breath or abd. pain She is feeling well as long as she is laying down but has significant pain/numbness when trying to get up from bed Review of Systems 2 Review of Systems: All systems reviewed & are unremarkable except as noted in Subjective Physical Exam Physical Exam: Constitutional: WD/WN, vitals as a issa Eyes: PERRL, conjunctiva e normal, anicteri c sclerae ENMT: external ear and n ose normal Neck: supple Respiratory: normal respiratory effort, lungs harman ar to auscultation Cardiovascular: RRR, no murmur, no edema Chest (Breasts): Chest: normal insp ection of chest Gastrointestinal ( Abdomen): normal bowel sound s, soft, nontender Musculoskeletal: Head/Neck/Chest: n ormocephalic, head atraumatic and ne ck supple Extremi ties: extremities normal to inspecti on (able to move L Es while laying in bed) Skin: no rashes, warm an d dry Neurologic: PERRL, EOMI, no fa ce palsy, no dysar thria, moves extre mities Psychiatric: A+Ox3, euthymic af fect Lymphatic: no lymphedema Results & Data Results & Data Vital Signs (Past 12 Hours) Vital Signs Temp Pulse Pulse Resp BP BP Pulse Ox 12/07/23 09:00 12/07/23 08:03 36.5 C 52 L 16 117/71 98 12/07/23 07:21 54 L 12/07/23 03:24 36.7 C 63 18 110/71 95 12/07/23 00:00 64 12/06/23 23:50 36.5 C 69 18 103/85 96 Pulse Ox O2 Del Method O2 Del Method 12/07/23 09:00 98 Room Air 12/07/23 08:03 Room Air 12/07/23 07:21 12/07/23 03:24 Room Air 12/07/23 00:00 12/06/23 23:50 Room Air Laboratory Results 12/07/23 12/05/23 Range/Units 07:15 16:06 WBC 6.57 (4.8-10.8) K/ul RBC 4.92 (4.20-5.40) M/uL Hgb 14.4 (12.0-16.0) g/dl POC Hgb 14.3 (12.0-16.0) g/dl Hct 43.7 (37.0-47.0) % POC Hct 42 (37-47) % MCV 88.8 (80.0-100.0) fL MCH 29.3 (25.0-34.0) pg MCHC 33.0 (32.0-36.0) g/dL RDW Std Deviation 41.1 (36.4-46.3) fL RDW Coeff of Contreras 12.6 (11.5-14.5) % Plt Count 273 (130-400) K/uL MPV 10.2 (9.4-12.4) fL POC Sodium 138 (135-144) mmol/L Sodium 140 (136-145) mmol/L POC Potassium 3.9 (3.3-5.0) mmol/L Potassium 3.6 (3.5-5.1) mmol/L POC Chloride 99 L (101-112) mmol/L Chloride 109 H (98-107) mmol/L Carbon Dioxide 24 (21-32) mmol/L POC Total CO2 25 (24-31) mmol/L Anion Gap 7 (3-11) POC Anion Gap 19.0 (16-25) mmol/L POC BUN 14 (7-18) mg/dl BUN 8 (6-23) mg/dl Creatinine 0.47 L (0.6-1.2) mg/dl POC Creatinine 0.6 (0.6-1.3) mg/dl Est Cr Clr Drug Dosing 114.8 ml/min Est GFR ( Amer) 117.6 ml/min Est GFR (Non-Af Amer) 101.5 ml/min BUN/Creatinine Ratio 17.0 (10-20) Glucose 103 H (70-99(Fasting)) mg/dl POC Glucose (other) TNP Calcium 8.7 (8.6-10.3) mg/dl POC Ioniz Calcium Justin 1.24 (1.12-1.32) mmol/l Phosphorus 2.9 (2.5-4.9) mg/dl Magnesium 1.9 (1.7-2.4) mg/dl Medications Administered Current Inpatient Medications Acetaminophen (Acetaminophen 325 Mg Tab) 650 mg PO Q4H PRN PRN Reason: Pain or Fever Stop: 01/04/24 20:59 Last Admin: 12/06/23 11:26 Dose: 650 mg Amlodipine Besylate (Amlodipine Besylate 5 Mg Tab) 10 mg PO QPM [facility] Stop: 01/04/24 20:59 Last Admin: 12/06/23 20:03 Dose: 10 mg Atorvastatin Calcium (Atorvastatin 20 Mg Tab) 20 mg PO PM [facility]IAN Stop: 01/04/24 20:59 Last Admin: 12/06/23 20:01 Dose: 20 mg Diazepam (Diazepam 2 Mg Tablet) 1 mg PO BID PRN PRN Reason: muscle spasm Stop: 01/04/24 20:24 Last Admin: 12/06/23 23:01 Dose: 1 mg Donepezil HCl (Donepezil Hcl 10 Mg Tab) 10 mg PO HS [facility] Stop: 01/04/24 22:34 Last Admin: 12/06/23 20:02 Dose: 10 mg Famotidine (Famotidine 20 Mg Tab) 20 mg PO BID [facility] Stop: 01/04/24 20:59 Last Admin: 12/07/23 07:54 Dose: 20 mg Fluoxetine HCl (Fluoxetine Hcl 20 Mg Cap) 40 mg PO QAM [facility] Stop: 01/05/24 08:59 Last Admin: 12/07/23 07:54 Dose: 40 mg Hydralazine HCl (Hydralazine Tab 50 Mg Tab) 50 mg PO BID [facility] Stop: 01/04/24 20:59 Last Admin: 12/07/23 07:54 Dose: 50 mg Lidocaine (Lidocaine 5% 1 Patch) 1 patch TD HS [facility] Stop: 01/05/24 17:59 Last Admin: 12/06/23 19:20 Dose: 1 patch Methylprednisolone (Methylprednisolone 4 Mg Tab) 4 mg PO BID [facility] Stop: 01/06/24 08:59 Last Admin: 12/07/23 08:50 Dose: 4 mg Metoprolol Succinate (Metoprolol Succ 25mg Ext Rel Tab) 75 mg PO PM [facility] Stop: 01/04/24 20:59 Last Admin: 12/06/23 20:02 Dose: 75 mg Miscellaneous (Remove Lidoderm Patch) 1 each N/A DAILY [facility] Stop: 01/06/24 05:59 Last Admin: 12/07/23 06:34 Dose: Not Given Nitroglycerin (Nitroglycerin Sl 0.4 Mg/Tab Tab) 0.4 mg SL UD PRN PRN Reason: Chest Pain Stop: 01/04/24 20:24 Oxycodone HCl (Oxycodone Hcl Ir 5 Mg Tab (Immediate Release)) 5 mg PO Q8H PRN PRN Reason: pain Stop: 12/19/23 20:24 Last Admin: 12/07/23 08:50 Dose: 5 mg Pantoprazole Sodium (Pantoprazole 40 Mg Tab) 40 mg PO QAM [facility] Stop: 01/05/24 08:59 Last Admin: 12/07/23 07:54 Dose: 40 mg Polyethylene Glycol (Polyethylene (Miralax) 17 Gm Pack) 17 gm PO DAILY PRN PRN Reason: Constipation Stop: 01/04/24 17:38 Trazodone HCl (Trazodone Hcl 50 Mg Tab) 150 mg PO QPM [facility] Stop: 01/04/24 20:59 Last Admin: 12/06/23 21:44 Dose: 150 mg
--- NOTE | 2023-12-07 10:58 | XRay Report ---
XR chest 1V portable CLINICAL HISTORY: pre-op TECHNIQUE: Single frontal radiograph of the chest was obtained. Comparison: Comparison is made to chest radiograph 03/09/2022 FINDINGS: No lines and tubes are seen. The cardiomediastinal silhouette is normal. The lungs are clear. No evid ence of pleural effusion or pneumothorax. IMPRESSION: No acute chest disease. ACT 112: Negative or not required by law. Electronically signed by: Hema Payton M.D. 12/07/2023 10:57 AM
--- NOTE | 2023-12-07 12:31 | Electrocardiogram Report ---
Test Reason : Blood Pressure : / mmHG Vent. Rate : 059 BPM Atrial Rate : 059 BPM P-R Int : 160 ms QRS Dur : 076 ms QT Int : 484 ms P-R-T Axes : 036 -07 060 degrees QTc Int : 479 ms Sinus bradycardia Moderate voltage criteria for LVH, may be normal variant Possible Lateral infarct , age undetermined Inferior infarct , age undetermined Abnormal ECG When compared with ECG of 10-MAR-2022 05:23, Previous ECG has undetermined rhythm, needs review Borderline criteria for Lateral infarct are now Present Confirmed by Israel Ramsey ([id number]) on 12/07/2023 12:31:36 PM Referred By: Soraya Payne Confirmed By:Israel Ramsey
--- NOTE | 2023-12-07 15:34 | Anesthesiology Consultation ---
Date of Service December 07, 2023 Assessment & Plan Chart Review Chart Review: Acceptable Risk for Surgery and Patient NOT seen in Pre Admission Testing Consults Requested none ASA ASA3 Proposed Anesthesia Anesthesia Type: General History Height/Weight Height: 5 ft 5 in Weight: 73.2 kg Allergies Allergy/AdvReac Type Severity Reaction Status Date / Time Penicillins Allergy Mild rash Verified 12/05/23 15:16 lisinopril AdvReac Intermediate Cough Unverified 12/05/23 15:16 Medications Home Medications Medication Instructions Recorded Confirmed Last Taken atorvastatin 20 mg tablet (Lipitor) 20 mg PO PM 07/15/19 12/05/23 12/04/23 fluoxetine 40 mg capsule 40 mg PO QAM 03/09/22 12/05/23 12/05/23 nitroglycerin 0.4 mg sublingual 0.4 mg sublingual UD PRN Chest Pain 03/09/22 12/05/23 Unknown tablet metoprolol succinate 50 mg 75 mg (1.5 x 50 mg) PO PM #180 tabs 12/15/22 12/05/23 12/04/23 tablet,extended release 24 hr diazepam 2 mg tablet (Valium) 1 mg (1/2 x 2 mg) PO BID PRN 12/01/23 12/05/23 Unknown muscle spasm #4 tabs oxycodone 5 mg tablet 5 mg PO Q8H PRN pain #8 tabs 12/01/23 12/05/23 Unknown acetaminophen 500 mg tablet 500 mg PO Q6H PRN PAIN/FEVER 12/05/23 12/05/23 Unknown amlodipine 10 mg tablet 10 mg PO QPM 12/05/23 12/05/23 12/04/23 celecoxib 200 mg capsule 200 mg PO QAM 12/05/23 12/05/23 12/05/23 cholecalciferol (vitamin D3) 1,250 50,000 unit PO WK 12/05/23 12/05/23 12/01/23 mcg (50,000 unit) capsule donepezil 10 mg tablet 10 mg PO HS 12/05/23 12/05/23 Unknown empagliflozin 10 mg tablet 10 mg PO QAM 12/05/23 12/05/23 12/05/23 (Jardiance) famotidine 20 mg tablet 20 mg PO BID PRN Acid Reflux 12/05/23 12/05/23 12/05/23 hydralazine 50 mg tablet 50 mg PO BID 12/05/23 12/05/23 12/05/23 imipramine HCl 50 mg tablet 50 mg PO HS 12/05/23 12/05/23 12/04/23 naproxen sodium 220 mg tablet 220 mg PO BID PRN Pain 12/05/23 12/05/23 Unknown (Aleve) ondansetron HCl 8 mg tablet 8 mg PO Q8H PRN Nausea And Vomiting 12/05/23 12/05/23 12/05/23 trazodone 50 mg tablet 150 mg PO QPM 12/05/23 12/05/23 12/04/23 Active Medications Generic Name Dose Route Start Last Admin Trade Name Freq PRN Reason Stop Dose Admin Acetaminophen 650 mg 12/05/23 21:00 12/06/23 11:26 Acetaminophen 325 Mg Tab PO 01/04/24 20:59 650 mg Q4H PRN Administration Pain or Fever Amlodipine Besylate 10 mg 12/05/23 21:00 12/06/23 20:03 Amlodipine Besylate 5 Mg Tab PO 01/04/24 20:59 10 mg QPM MARIAN Administration Atorvastatin Calcium 20 mg 12/05/23 21:00 12/06/23 20:01 Atorvastatin 20 Mg Tab PO 01/04/24 20:59 20 mg PM MARIAN Administration Diazepam 1 mg 12/05/23 20:25 12/07/23 11:28 Diazepam 2 Mg Tablet PO 01/04/24 20:24 1 mg BID PRN Administration muscle spasm Donepezil HCl 10 mg 12/05/23 22:35 12/06/23 20:02 Donepezil Hcl 10 Mg Tab PO 01/04/24 22:34 10 mg HS MARIAN Administration Famotidine 20 mg 12/05/23 21:00 12/07/23 07:54 Famotidine 20 Mg Tab PO 01/04/24 20:59 20 mg BID MARIAN Administration Fluoxetine HCl 40 mg 12/06/23 09:00 12/07/23 07:54 Fluoxetine Hcl 20 Mg Cap PO 01/05/24 08:59 40 mg QAM MARIAN Administration Hydralazine HCl 50 mg 12/05/23 21:00 12/07/23 07:54 Hydralazine Tab 50 Mg Tab PO 01/04/24 20:59 50 mg BID MARIAN Administration Lidocaine 1 patch 12/06/23 18:00 12/06/23 19:20 Lidocaine 5% 1 Patch TD 01/05/24 17:59 1 patch HS MARIAN Administration Methylprednisolone 4 mg 12/07/23 09:00 12/07/23 08:50 Methylprednisolone 4 Mg Tab PO 01/06/24 08:59 4 mg BID MARIAN Administration Metoprolol Succinate 75 mg 12/05/23 21:00 12/06/23 20:02 Metoprolol Succ 25mg Ext Rel Tab PO 01/04/24 20:59 75 mg PM MARIAN Administration Miscellaneous 1 each 12/07/23 06:00 12/07/23 06:34 Remove Lidoderm Patch N/A 01/06/24 05:59 Not Given DAILY MARIAN Oxycodone HCl 5 mg 12/05/23 20:25 12/07/23 08:50 Oxycodone Hcl Ir 5 Mg Tab (Immediate Release) PO 12/19/23 20:24 5 mg Q8H PRN Administration pain Pantoprazole Sodium 40 mg 12/06/23 09:00 12/07/23 07:54 Pantoprazole 40 Mg Tab PO 01/05/24 08:59 40 mg QAM MARIAN Administration Trazodone HCl 150 mg 12/05/23 21:00 12/06/23 21:44 Trazodone Hcl 50 Mg Tab PO 01/04/24 20:59 150 mg QPM MARIAN Administration Past Medical History Medical History Hiatal hernia History of COVID-19 03/09/22>HOSPITALIZED FOR COVID *STOMACH PROBLEMS CONT. (REASON FOR DX) CAD (coronary artery disease) Myocardial perfusion study 08/02/19 shows evidence of prior infarct in LAD territory. Patient did not report h/o AK. Hx of Lyme disease Osteoarthritis Hypertension HLD ASCVD Ao GERD NIDDM Hx/o SVT Cardiac cath approx. 2011 non obstructive at the time Left renal artery aneurysm prolonged QT Exercise / Class Metabolic Activity III < 4 Walking/Shop/Light housework Past Family History Family History Unknown No family history of adverse response to anesthesia Other Heart disease Stroke Past Surgical History Surgical History History of esophagogastroduodenoscopy (EGD) History of total left knee replacement History of cardiac cath ~10yrs ago for abnormal stress test. No stents. Pt reports she was told she had a 45% blockage in one artery.>FOLLOWED BY DR. DOTSON Nausea and vomiting after administration of anesthetic agent History of total right knee replacement Hx of section X 1 Hx of oophorectomy Hx of colonoscopy Hx of total hysterectomy Status post tonsillectomy and adenoidectomy (05/09/14) Past Anesthesia History No Hx of Anesthesia Complications and No Family Hx of Anesthesia Complications History of PONV No Hx of PONV and No Hx of Motion Sickness Social History Smoking Status: Never smoker Do You Dip or Chew Tobacco: No Hx Alcohol Use: Yes alcohol intake frequency: holidays/special occasions only Hx Substance Use: No substance use type: does not use Physical Exam Vital Signs Last Vital Signs Temp 36.6 C 12/07/23 11:35 Pulse 68 12/07/23 11:35 Resp 18 12/07/23 11:35 BP 102/55 L 12/07/23 11:35 Pulse Ox 97 12/07/23 11:35 O2 Del Method Room Air 12/07/23 11:35 Testing Laboratory Results 12/07/23 07:15 12/07/23 07:15 Urine Color Yellow 12/05/23 22:45 Urine Appearance Clear (Clear) 12/05/23 22:45 Urine pH >= 9.0 (4.5-7.5) H 12/05/23 22:45 Ur Specific Redkey 1.019 (1.000-1.030) 12/05/23 22:45 Urine Protein Negative (Negative) 12/05/23 22:45 Urine Glucose (UA) 2+ (Negative) H 12/05/23 22:45 Urine Ketones Negative (Negative) 12/05/23 22:45 Urine Nitrite Negative (Negative) 12/05/23 22:45 Ur Leukocyte Esterase Negative (Negative) 12/05/23 22:45 Electrocardiogram Date: 12/07/23 Findings: + SB @ (@ 59;LVH;poss. lat. infarct,age ?;Poss infer. infarct,age ?) Stress Test Date: 08/09/23 Type: DSE Findings: + WNL Resting EF: Neg. EKG and Echo for ischemia @ 88% MPHR;LVH Resting LV Function: normal Resting RWMA: + none Valvular Disease: no significant valvular disease
[2023-12-08 07:21] LABS: Hematocrit (blood only) 44.4 % (37.0-47.0); Hemoglobin 14.5 g/dl (12.0-16.0); Mean Corpuscular Hemoglobin 29.1 pg (25.0-34.0); Mean Corpuscular Hgb Conc 32.7 g/dL (32.0-36.0); Mean Platelet Volume 10.5 fL (9.4-12.4); Platelet Count 257 K/uL (130-400); RDW Coefficient of Variation 12.8 % (11.5-14.5); RDW Standard Deviation 41.8 fL (36.4-46.3); Red Blood Count 4.99 M/uL (4.20-5.40)
[2023-12-08 07:36] LABS: Calcium 8.9 mg/dl (8.6-10.3); Creatinine Clr Calc Pharmacy 94.8 ml/min; Est GFR (African American) 110.4 ml/min; Est GFR (Non-African American) 95.3 ml/min; Phosphorus 4.1 mg/dl (2.5-4.9); Potassium 3.8 mmol/L (3.5-5.1)
--- NOTE | 2023-12-08 07:49 | Hospitalist Progress Note ---
Date of Service December 08, 2023 Assessment & Plan (1) Left lumbar radiculopathy: Plan: Lumbar disc herniation with radiculopathy - back pain, LLE pain, numbness, weakness - acute on chronic - was seen in ED previously - on 11/30 CT of lumbar spine was obtained as well as CT abd./pelvis - reportedly she was treated with steroids as outpt but apparently her back/LLE pain/numbness recurs right after medical treatment - she was ordered MRI by her PCP which was scheduled for (day of admission), she was having difficulty moving after her MRI so was sent to the ED - Lumbar spine MRI - 1. A 5 mm focal left foraminal disc protrusion at L5-S1 which abuts and compresses the exiting left L5 nerve root as described above. 2. Grade 1 anterolisthesis of L5 on S1, unchanged. 3. There is moderate central canal narrowing at L5-S1. 4. No acute fractures. - ED provider discussed MRI findings w/ ortho-spine surgeon Dr. Dang - in the ED pt received IV tylenol, toradol, lidocaine patch, gabapentin - cont. home oxycodone, valium, also started with 4mg medrol - Dr. Dang consulted - MRI lumbar spine available for review does demonstrate evidence of a grade 1 spondylolisthesis L4-5 with foraminal disc herniation on the left. There is marked facet hypertrophy noted and severe neural compression of the exiting L5 nerve root on the left. Patient continues to have significant symptoms and so would recommend lumbar decompression and fusion L5-S1. Plan for surgery on (12/08/23). - obtained and reviewed CXR, ECG - pre-op, both unremarkable. Pt also seen by anesthesia for pre-op eval. (2) CAD (coronary artery disease): Plan: HTN, HLD, paroxysmal SVT - follows with [facility] cardiology, Dr. Ramsey - cont. home meds - metoprolol succinate, amlodipine, atorvastatin, hydralazine (3) Type 2 diabetes mellitus: Plan: - Hgb A1c 5.8% as of 11/07/2023 (per outpt EMR epic review) - at home on Jardiance, hold while inpt - monitor BSG while inpt (4) GERD (gastroesophageal reflux disease): Plan: - cont. famotidine, pantoprazole Depression/anxiety - has been feeling more anxious/ depressed since her passed - requested to see psych - consult placed and pt seen by psych liaison -> pt would like outpt follow up/ evaluation DVT ppx: SCDs Admission and Anticipated Discharge Date Admission Date: December 05, 2023 Subjective Pt seen in follow up of back pain/ LLE pain/ numbness - lumbar radiculopathy ortho-spine consulted - plan for OR today Pt denies any fever, chills, chest pain, shortness of breath or abd. pain She is feeling well as long as she is laying down but has significant pain/numbness when trying to get up from bed/ move Review of Systems Review of Systems: All systems reviewed & are unremarkable except as noted in Subjective Physical Exam Physical Exam: Constitutional: WD/WN, vitals as a issa Eyes: PERRL, conjunctiva e normal, anicteri c sclerae ENMT: external ear and n ose normal Neck: supple Respiratory: normal respiratory effort, lungs harman ar to auscultation Cardiovascular: RRR, no murmur, no edema Chest (Breasts): Chest: normal insp ection of chest Gastrointestinal ( Abdomen): normal bowel sound s, soft, nontender Musculoskeletal: Head/Neck/Chest: n ormocephalic, head atraumatic and ne ck supple Extremi ties: extremities normal to inspecti on (able to move L Es while laying in bed) Skin: no rashes, warm an d dry Neurologic: PERRL, EOMI, no fa ce palsy, no dysar thria, moves extre mities Psychiatric: A+Ox3, euthymic af fect Lymphatic: no lymphedema Results & Data Results & Data Vital Signs (Past 12 Hours) Vital Signs Temp Pulse Resp BP BP Pulse Ox O2 Del Method 12/08/23 07:43 36.5 C 62 18 136/76 96 Room Air 12/08/23 04:20 36.8 C 61 18 109/84 98 Room Air 12/07/23 23:56 36.6 C 95 H 18 110/66 97 Room Air Laboratory Results 12/08/23 12/07/23 Range/Units 06:15 07:15 WBC 6.90 6.57 (4.8-10.8) K/ul RBC 4.99 4.92 (4.20-5.40) M/uL Hgb 14.5 14.4 (12.0-16.0) g/dl Hct 44.4 43.7 (37.0-47.0) % MCV 89.0 88.8 (80.0-100.0) fL MCH 29.1 29.3 (25.0-34.0) pg MCHC 32.7 33.0 (32.0-36.0) g/dL RDW Std Deviation 41.8 41.1 (36.4-46.3) fL RDW Coeff of Contreras 12.8 12.6 (11.5-14.5) % Plt Count 257 273 (130-400) K/uL MPV 10.5 10.2 (9.4-12.4) fL Sodium 139 140 (136-145) mmol/L Potassium 3.8 3.6 (3.5-5.1) mmol/L Chloride 106 109 H (98-107) mmol/L Carbon Dioxide 26 24 (21-32) mmol/L Anion Gap 7 7 (3-11) BUN 8 8 (6-23) mg/dl Creatinine 0.57 L 0.47 L (0.6-1.2) mg/dl Est Cr Clr Drug Dosing 94.8 114.8 ml/min Est GFR ( Amer) 110.4 117.6 ml/min Est GFR (Non-Af Amer) 95.3 101.5 ml/min BUN/Creatinine Ratio 14.0 17.0 (10-20) Glucose 100 H 103 H (70-99(Fasting)) mg/dl Calcium 8.9 8.7 (8.6-10.3) mg/dl Phosphorus 4.1 D 2.9 (2.5-4.9) mg/dl Magnesium 2.0 1.9 (1.7-2.4) mg/dl Medications Administered Current Inpatient Medications Acetaminophen (Acetaminophen 325 Mg Tab) 650 mg PO Q4H PRN PRN Reason: Pain or Fever Stop: 01/04/24 20:59 Last Admin: 12/06/23 11:26 Dose: 650 mg Amlodipine Besylate (Amlodipine Besylate 5 Mg Tab) 10 mg PO QPM MARIAN Stop: 01/04/24 20:59 Last Admin: 12/07/23 19:57 Dose: 10 mg Atorvastatin Calcium (Atorvastatin 20 Mg Tab) 20 mg PO PM MARIAN Stop: 01/04/24 20:59 Last Admin: 12/07/23 19:58 Dose: 20 mg Diazepam (Diazepam 2 Mg Tablet) 1 mg PO BID PRN PRN Reason: muscle spasm Stop: 01/04/24 20:24 Last Admin: 12/07/23 23:44 Dose: 1 mg Donepezil HCl (Donepezil Hcl 10 Mg Tab) 10 mg PO HS [facility] Stop: 01/04/24 22:34 Last Admin: 12/07/23 20:00 Dose: 10 mg Famotidine (Famotidine 20 Mg Tab) 20 mg PO BID MARIAN Stop: 01/04/24 20:59 Last Admin: 12/07/23 20:00 Dose: 20 mg Fluoxetine HCl (Fluoxetine Hcl 20 Mg Cap) 40 mg PO QAM MARIAN Stop: 01/05/24 08:59 Last Admin: 12/07/23 07:54 Dose: 40 mg Hydralazine HCl (Hydralazine Tab 50 Mg Tab) 50 mg PO BID MARIAN Stop: 01/04/24 20:59 Last Admin: 12/07/23 20:05 Dose: 50 mg Lidocaine (Lidocaine 5% 1 Patch) 1 patch TD HS [facility] Stop: 01/05/24 17:59 Last Admin: 12/07/23 20:02 Dose: 1 patch Methylprednisolone (Methylprednisolone 4 Mg Tab) 4 mg PO BID [facility] Stop: 01/06/24 08:59 Last Admin: 12/07/23 20:03 Dose: 4 mg Metoprolol Succinate (Metoprolol Succ 25mg Ext Rel Tab) 75 mg PO PM MARIAN Stop: 01/04/24 20:59 Last Admin: 12/07/23 20:03 Dose: 75 mg Miscellaneous (Remove Lidoderm Patch) 1 each N/A DAILY [facility] Stop: 01/06/24 05:59 Last Admin: 12/07/23 06:34 Dose: Not Given Nitroglycerin (Nitroglycerin Sl 0.4 Mg/Tab Tab) 0.4 mg SL UD PRN PRN Reason: Chest Pain Stop: 01/04/24 20:24 Oxycodone HCl (Oxycodone Hcl Ir 5 Mg Tab (Immediate Release)) 5 mg PO Q8H PRN PRN Reason: pain Stop: 12/19/23 20:24 Last Admin: 12/07/23 19:57 Dose: 5 mg Pantoprazole Sodium (Pantoprazole 40 Mg Tab) 40 mg PO QAM [facility] Stop: 01/05/24 08:59 Last Admin: 12/07/23 07:54 Dose: 40 mg Polyethylene Glycol (Polyethylene (Miralax) 17 Gm Pack) 17 gm PO DAILY PRN PRN Reason: Constipation Stop: 01/04/24 17:38 Trazodone HCl (Trazodone Hcl 50 Mg Tab) 150 mg PO QPM [facility] Stop: 01/04/24 20:59 Last Admin: 12/07/23 20:11 Dose: 150 mg
[2023-12-08] MEDS ORDERED: LIDOCAINE 2% 2 ML VIAL/AMP(20MG/ML) INFIL ONE (10:33)
[2023-12-08] MEDS ORDERED: ONDANSETRON INJ 2 MG/ML 2 ML VIAL ONE (10:33)
[2023-12-08] MEDS ORDERED: PROPOFOL IV EMULSION 10 MG/ML 20 ML VIAL IV ONE (10:33)
[2023-12-08] MEDS ORDERED: DEXAMETHASONE SOD INJ 4 MG/ML VIAL ONE (10:33)
[2023-12-08] MEDS ORDERED: fentaNYL citrate PF 100 MCG/2 ML VIAL ONE ×2 (10:33→14:19)
[2023-12-08] MEDS ORDERED: ROCURONIUM BROMIDE 10 MG/ML 5 ML VIAL IV ONE (10:33)
[2023-12-08] MEDS: LACTATED RINGER'S 1,000 ML IV SCH ×2 (11:50→17:51)
[2023-12-08] MEDS ORDERED: MIDAZOLAM HCL 1 MG/ML 2ML VIAL ONE (12:22)
--- NOTE | 2023-12-08 12:22 | History & Physical Bridge Note ---
Date of Service December 08, 2023 History & Physical Bridge Note I have examined the patient, reviewed the History & Physical and in the interval since the performance of the History & Physical I have noted the following changes of clinical significance: no changes noted Lumbar decompression and fusion L5-S1
[2023-12-08] MEDS ORDERED: PROMETHAZINE HCL 6.25 MG in SODIUM CHLORIDE 0.9% 50 ML IV PRN (12:31)
[2023-12-08] MEDS ORDERED: ATROPINE SULFATE 0.1 MG/ML 10ML SYR IV PRN ×2 (12:31→16:17)
[2023-12-08] MEDS: CLINDAMYCIN/D5W 900 MG/50 ML BAG IV SCH (13:12)
[2023-12-08] MEDS: BUPIVACAINE/EPINEPHRINE 0.25% 1:200,000 30 ML VIAL ONE (14:00)
[2023-12-08] MEDS: ceFAZolin 330 MG/ML 1 GM VIAL ONE (14:00)
[2023-12-08] MEDS ORDERED: SUGAMMADEX SODIUM 200 MG/2 ML VIAL IV ONE (14:54)
[2023-12-08] MEDS: FLOSEAL HEMOSTATIC MATRIX 10ML TOP ONE (14:55)
--- NOTE | 2023-12-08 15:02 | Operative Report ---
Post Operative Report Pre & Post Diagnosis Operation Date: 12/08/23 08:05 Pre-Op Diagnosis: (1) Lumbar disc herniation with radiculopathy: #2 spondylolisthesis L5-S1 Post-Op Diagnosis: Same I identified the patient and participated in the time-out.: Yes Procedure Operation Date: 12/08/23 08:05 Actual Procedures #1 lumbar decompression with bilateral medial facetectomies and foraminotomies L4-L5 L5-S1. #2 posterior spinal fusion L5-S1. #3 placed posterior instrumentation L5-S1. #4 interbody fusion L5-S1. #5 placement spiral 12 x 22 mm x 2 at L5-S1. #6 placement locally harvested morselized autograft in the posterior gutters per #7 placement infuse collagen sponge, with Koros in the posterior lateral gutters and Morpheus bone graft interbody space. Surgeon Shayne Dang DO Core Extruder Charanjit Kent Estimated Blood Loss 50 Findings Consistent with Post-Op Diagnosis Specimens None Indications This is a 68-year-old female who presents above-mentioned diagnosis of failed course of nonoperative care she is here for surgical invention. Description of Procedure Patient was met with identified informed consent obtained. Patient was then taken to the operative suite underwent patient placed in a prone position on the Presley table on top of the Luis E frame. All bony promises well-padded eyes inspected to ensure no external pressure placed upon them. This point the lumbar spine was prepped and draped in a normal sterile fashion. Sharp dissection with the assistance of Bovie cautery form down to and exposing the lamina transverse processes of L5 and the sacral ala bilaterally. From caudal to cephalad fashion complete laminectomy of L5 was performed including bilateral medial facetectomies and foraminotomies addressing severe spinal stenosis. Then proceeded to perform a partial laminectomy of L4 including bilateral medial facetectomies to address all lateral recess disease. Pedicle screws were then placed in L5 and S1 levels bilaterally with assistance of fluoroscopy and appropriate size christi placed. By way of transforaminal approach on the left discectomy of L5-S1 was performed endplates guided to subcortical bleeding bone and a 12 x 22 mm spiral cage filled with Morpheus bone graft tapped in position. Then proceeded to the right transforaminal region at L5-S1. Again discectomy performed endplates guided to subcortical bleeding bone and a second 12 x 22 mm spiral cage filled with Morpheus bone graft tapped in position. The rods then compressed locked into final position bilaterally. The transverse processes of L5 and sacral ala burred to subcortical bleeding bone. Infuse collagen sponge, with Koros and locally harvested morselized autograft placed in the posterior gutters. 15 round PHILIP inserted. The incision was then closed with 1 Vicryl in the fascia 2-0 Vicryl subcutaneously and 4 Monocryl for final skin closure. St arlen-Strips sterile dressing placed. Patient waken taken PACU stable condition. Please note spinal cord monitoring was utilized at the procedure no changes noted. Ashley Kent was present at the entire surgery involved the patient positioning complex portion of the surgery and final skin closure. I attest to the content of the Intraoperative Record and any orders documented therein. Any exceptions are noted below.
[2023-12-08] MEDS: HYDROmorphone INJ 1 MG/ML SYRINGE IV PRN (15:30)
--- NOTE | 2023-12-08 15:33 | Fluoroscopy Report ---
FL lumbar spine 2-3V CLINICAL HISTORY: L5-S1 DECOMPRESSION AND FUSION TECHNIQUE: 2 views were obtained with the C-arm in the OR with the above procedure. Total fluoroscopy time was 19.0 seconds. Radiation dose was 14.91 prior mGy. Comparison: MRI lumbar spine 2-21 FINDINGS/IMPRESSION: Intraoperative images were obtained of L5-S1 decompression and fusion. Please correlate with intraoperative fluoroscopy and operative report. ACT 112: Negative or not required by law. Electronically signed by: Hema Payton M.D. 12/08/2023 3:32 PM
[2023-12-08] MEDS ORDERED: ePHEDrine sulfate 50 MG/ML AMP IV PRN (16:17)
[2023-12-08] MEDS: HYDROmorphone INJ 2 MG/ML SYR/VIAL IV PRN (16:28)
--- NOTE | 2023-12-08 17:20 | Anesthesiology Progress Note ---
Date of Service December 08, 2023 Anesthesia Post Procedure Vital Signs Vital Signs: Temp Pulse Pulse Resp BP BP Pulse Ox 12/08/23 17:05 56 L 11 L 90/62 L 98 12/08/23 16:55 67 12 114/43 L 98 12/08/23 16:45 98.6 F 61 9 L 102/56 L 98 12/08/23 16:35 53 L 14 101/42 L 98 12/08/23 16:25 67 10 L 118/52 L 94 12/08/23 16:15 66 20 124/57 L 94 12/08/23 16:05 63 16 119/55 L 95 12/08/23 15:55 63 14 119/60 95 12/08/23 15:45 66 12 122/42 L 95 12/08/23 15:35 60 16 118/50 L 98 12/08/23 15:26 97.0 F L 59 L 11 L 130/54 L 100 12/08/23 11:42 97.9 F 61 18 119/69 96 12/08/23 09:00 12/08/23 07:43 97.7 F 62 18 136/76 96 12/08/23 04:20 98.2 F 61 18 109/84 98 12/07/23 23:56 97.9 F 95 H 18 110/66 97 12/07/23 19:45 98.2 F 71 18 130/78 97 Pulse Ox O2 Del Method O2 Del Method O2 Flow Rate 12/08/23 17:05 Nasal Cannula 2 12/08/23 16:55 Nasal Cannula 2 12/08/23 16:45 Nasal Cannula 2 12/08/23 16:35 Room Air 12/08/23 16:25 Room Air 12/08/23 16:15 Room Air 12/08/23 16:05 Room Air 12/08/23 15:55 Room Air 12/08/23 15:45 Room Air 12/08/23 15:35 Room Air 12/08/23 15:26 Oxymask 8 12/08/23 11:42 Room Air 12/08/23 09:00 96 Room Air 12/08/23 07:43 Room Air 12/08/23 04:20 Room Air 12/07/23 23:56 Room Air 12/07/23 19:45 Room Air Pain Intensity Lower Back: Pain Intensity: 4 Transfer of Care Handoff Completed per policy Notes Mental Status: alert / awake / arousable and participated in evaluation Patient Amnestic to Procedure: Yes Nausea / Vomiting: adequately controlled Pain: adequately controlled and improving with treatment Airway Patency, RR, SpO2: stable & adequate BP & HR: stable & adequate Hydration State: stable & adequate Anesthetic Complications: no major complications apparent and Pt Satisfied with anesthetic care
[2023-12-08] MEDS ORDERED: LORazepam 0.5 MG in SYRINGE 0.25 ML IV PRN (17:43)
[2023-12-08] MEDS ORDERED: SOD PHOSPHATE/SOD BIPHOSPHATE ENEMA 132 ML BTL PR PRN (17:43)
[2023-12-08] MEDS ORDERED: ALUMINUM/MAGNESIUM SUSP 30 ML UDC PO PRN (17:43)
[2023-12-08] MEDS ORDERED: NALOXONE HCL 0.4 MG/1 ML VIAL/CARP IV PRN (17:43)
[2023-12-08] MEDS ORDERED: hydrOXYzine HCl 25 MG TAB PO PRN (17:43)
[2023-12-08] MEDS ORDERED: METOCLOPRAMIDE HCL INJ 5 MG/ML 2 ML VIAL IV PRN (17:43)
[2023-12-08] MEDS ORDERED: bisacodyL 10 MG SUPP PR PRN (17:43)
[2023-12-08] MEDS ORDERED: PROMETHAZINE HCL 12.5 MG in SODIUM CHLORIDE 0.9% 50 ML IV PRN (17:43)
[2023-12-08] MEDS ORDERED: DO NOT ADMINISTER PNEUMOCOCCAL VACCINE PRN (17:43)
[2023-12-08] MEDS ORDERED: ONDANSETRON INJ 2 MG/ML 2 ML VIAL IV PRN (17:43)
[2023-12-08] MEDS ORDERED: ONDANSETRON 4 MG OD TAB PO PRN (17:43)
[2023-12-08] MEDS ORDERED: LORazepam 0.5 MG TAB PO PRN (17:43)
[2023-12-08] MEDS ORDERED: DO NOT ADMINISTER FLU VACCINE PRN (17:43)
[2023-12-08] MEDS ORDERED: FAMOTIDINE 20 MG TAB PO PRN (17:43)
[2023-12-08] MEDS ORDERED: HYDROmorphone INJ 0.5 MG/0.5 ML SYR IV PRN (17:43)
[2023-12-08] MEDS: CLINDAMYCIN 900 MG/D5W 50 ML BAG IV ONE (17:48)
[2023-12-08] MEDS: HYDROmorphone INJ 0.5 MG/0.5 ML SYR ONE ×2 (17:48)
[2023-12-08] MEDS: DOCUSATE SODIUM/SENNA 50/8.6MG TAB PO SCH (20:14)
[2023-12-08] MEDS: IMIPRAMINE HCL 25 MG TAB PO SCH (20:15)
[2023-12-08] MEDS: ACETAMINOPHEN 1,000 MG/100 ML VIAL IV PRN (20:15)
[2023-12-08] MEDS: SODIUM CHLORIDE 0.9% 500 ML IV SCH (21:07)
[2023-12-08] MEDS: CLINDAMYCIN/D5W 600 MG/50 ML BAG IV SCH (22:50)
[2023-12-08] MEDS: traMADol HCL 50 MG TABLET PO PRN (22:50)
[2023-12-08] MEDS: oxyCODONE HCL IR 5 MG TAB (IMMEDIATE RELEASE) PO PRN (23:51)
[2023-12-09] MEDS: HYDROmorphone INJ 1 MG/ML SYRINGE IV PRN (03:11)
[2023-12-09] MEDS: POLYETHYLENE (MIRALAX) 17 GM PACK PO SCH (05:38)
[2023-12-09 06:47] LABS: Basophils # (auto) 0.04 K/uL (0.00-0.20); Basophils % (auto) 0.3 %; Eosinophils # (auto) 0.02 K/uL (0.00-0.50); Eosinophils % (auto) 0.2 %; Hematocrit (blood only) 38.7 % (37.0-47.0); Hemoglobin 12.7 g/dl (12.0-16.0); Immature Granulocytes # (auto) 0.07 K/uL (0.01-0.20); Immature Granulocytes % (auto) 0.5 %; Lymphocytes # (auto) 0.87 K/uL (1.20-3.40); Lymphocytes % (auto) 6.7 %; Mean Corpuscular Hemoglobin 29.9 pg (25.0-34.0); Mean Corpuscular Hgb Conc 32.8 g/dL (32.0-36.0); Mean Corpuscular Volume 91.1 fL (80.0-100.0); Mean Platelet Volume 10.5 fL (9.4-12.4); Monocytes # (auto) 0.93 K/uL (0.11-0.59); Monocytes % (auto) 7.2 %; Neutrophils # (auto) 11.05 K/uL (1.40-6.50); Neutrophils % (auto) 85.1 %; Platelet Count 230 K/uL (130-400); RDW Coefficient of Variation 12.9 % (11.5-14.5); RDW Standard Deviation 42.7 fL (36.4-46.3); Red Blood Count 4.25 M/uL (4.20-5.40); White Blood Count 12.98 K/ul (4.8-10.8)
[2023-12-09 07:04] LABS: BUN Creatinine Ratio 20.6 (10-20); Calcium 8.6 mg/dl (8.6-10.3); Est GFR (African American) 106.8 ml/min; Est GFR (Non-African American) 92.2 ml/min; Magnesium 1.9 mg/dl (1.7-2.4); Phosphorus 4.6 mg/dl (2.5-4.9); Potassium 3.9 mmol/L (3.5-5.1)
--- NOTE | 2023-12-09 08:07 | Hospitalist Progress Note ---
Date of Service December 09, 2023 Assessment & Plan (1) Left lumbar radiculopathy: Plan: Lumbar disc herniation with radiculopathy - back pain, LLE pain, numbness, weakness - acute on chronic - was seen in ED previously - on 11/30 CT of lumbar spine was obtained as well as CT abd./pelvis - reportedly she was treated with steroids as outpt but apparently her back/LLE pain/numbness recurs right after medical treatment - she was ordered MRI by her PCP which was scheduled for (day of admission), she was having difficulty moving after her MRI so was sent to the ED - Lumbar spine MRI - 1. A 5 mm focal left foraminal disc protrusion at L5-S1 which abuts and compresses the exiting left L5 nerve root as described above. 2. Grade 1 anterolisthesis of L5 on S1, unchanged. 3. There is moderate central canal narrowing at L5-S1. 4. No acute fractures. - ED provider discussed MRI findings w/ ortho-spine surgeon Dr. Dang - in the ED pt received IV tylenol, toradol, lidocaine patch, gabapentin - cont. home oxycodone, valium, also started with 4mg medrol - Dr. Dang consulted - MRI lumbar spine available for review does demonstrate evidence of a grade 1 spondylolisthesis L4-5 with foraminal disc herniation on the left. There is marked facet hypertrophy noted and severe neural compression of the exiting L5 nerve root on the left. Patient continues to have significant symptoms and so would recommend lumbar decompression and fusion L5-S1. Plan for surgery on (12/08/23). - obtained and reviewed CXR, ECG - pre-op, both unremarkable. Pt also seen by anesthesia for pre-op eval. Pt is now s/p decompression & fusion of L5-S1 on (12/08/2023) - overall doing well post-op Acute blood loss anemia, post-op vs. dilutional Current Hgb down to 12.7 (previously Hgb 14-15) - expected, no need for blood transfusion - cont. to monitor H&H (2) CAD (coronary artery disease): Plan: HTN, HLD, paroxysmal SVT - follows with [facility] cardiology, Dr. Ramsey - cont. home meds - metoprolol succinate, amlodipine, atorvastatin, hold hydralazine for now d/t lower BP post-op (3) Type 2 diabetes mellitus: Plan: - Hgb A1c 5.8% as of 11/07/2023 (per outpt EMR epic review) - at home on Jardiance, hold while inpt - monitor BSG while inpt (4) GERD (gastroesophageal reflux disease): Plan: - cont. famotidine, pantoprazole Depression/anxiety - has been feeling more anxious/ depressed since her passed - requested to see psych - consult placed and pt seen by psych liaison -> pt would like outpt follow up/ evaluation DVT ppx: SCDs Admission and Anticipated Discharge Date Admission Date: December 05, 2023 Subjective Pt seen in follow up of back pain/ LLE pain/ numbness - lumbar radiculopathy ortho-spine consulted - s/p lumbar surgery yesterday Pt denies any fever, chills, chest pain, shortness of breath or abd. pain Sitting up in chair, in NAD, having lunch with her daughter No BM yet Review of Systems Review of Systems: All systems reviewed & are unremarkable except as noted in Subjective Physical Exam Physical Exam: Constitutional: WD/WN, vitals as a issa Eyes: PERRL, conjunctiva e normal, anicteri c sclerae ENMT: external ear and n ose normal Neck: supple Respiratory: normal respiratory effort, lungs harman ar to auscultation Cardiovascular: RRR, no murmur, no edema Chest (Breasts): Chest: normal insp ection of chest Gastrointestinal ( Abdomen): normal bowel sound s, soft, nontender Musculoskeletal: Head/Neck/Chest: n ormocephalic, head atraumatic and ne ck supple Extremi ties: extremities normal to inspecti on Skin: no rashes, warm an d dry Neurologic: PERRL, EOMI, no fa ce palsy, no dysar thria, moves extre mities Psychiatric: A+Ox3, euthymic af fect Lymphatic: no lymphedema Results & Data Results & Data Vital Signs (Past 12 Hours) Vital Signs Temp Pulse Resp BP Pulse Ox O2 Del Method 12/09/23 07:58 36.6 C 70 16 113/57 L 99 Room Air 12/09/23 03:16 36.4 C L 73 16 124/67 97 Room Air 12/08/23 23:59 36.9 C 58 L 15 93/51 L 96 Room Air 12/08/23 23:20 36.4 C L 63 16 95/48 L 95 Room Air 12/08/23 20:18 36.4 C L 72 18 90/53 L 98 Room Air Laboratory Results 12/09/23 12/08/23 12/08/23 Range/Units 06:07 15:26 11:45 WBC 12.98 H (4.8-10.8) K/ul RBC 4.25 (4.20-5.40) M/uL Hgb 12.7 (12.0-16.0) g/dl Hct 38.7 (37.0-47.0) % MCV 91.1 (80.0-100.0) fL MCH 29.9 (25.0-34.0) pg MCHC 32.8 (32.0-36.0) g/dL RDW Std Deviation 42.7 (36.4-46.3) fL RDW Coeff of Contreras 12.9 (11.5-14.5) % Plt Count 230 (130-400) K/uL MPV 10.5 (9.4-12.4) fL Immature Gran % (Auto) 0.5 % Neut % (Auto) 85.1 % Lymph % (Auto) 6.7 % [place] % (Auto) 7.2 % Eos % (Auto) 0.2 % Baso % (Auto) 0.3 % Neut # (Auto) 11.05 H (1.40-6.50) K/uL Lymph # (Auto) 0.87 L (1.20-3.40) K/uL [place] # (Auto) 0.93 H (0.11-0.59) K/uL Eos # (Auto) 0.02 (0.00-0.50) K/uL Baso # (Auto) 0.04 (0.00-0.20) K/uL Immature Gran # (Auto) 0.07 (0.01-0.20) K/uL Sodium 138 (136-145) mmol/L Potassium 3.9 (3.5-5.1) mmol/L Chloride 103 (98-107) mmol/L Carbon Dioxide 26 (21-32) mmol/L Anion Gap 9 (3-11) BUN 13 (6-23) mg/dl Creatinine 0.63 (0.6-1.2) mg/dl Est Cr Clr Drug Dosing 86.0 ml/min Est GFR ( Amer) 106.8 ml/min Est GFR (Non-Af Amer) 92.2 ml/min BUN/Creatinine Ratio 20.6 H (10-20) Glucose 124 H (70-99(Fasting)) mg/dl POC Glucose 124 H 91 (70-99) mg/dl Calcium 8.6 (8.6-10.3) mg/dl Phosphorus 4.6 (2.5-4.9) mg/dl Magnesium 1.9 (1.7-2.4) mg/dl Medications Administered Current Inpatient Medications Acetaminophen (Acetaminophen 500 Mg Tab) 1,000 mg PO Q8H PRN PRN Reason: MILD Pain Scale 1,2,3 & Pre PT Stop: 01/07/24 17:42 Al Hydrox/Mg Hydrox/Simethicone (Aluminum/Magnesium Susp 30 Ml Udc) 30 ml PO Q6H PRN PRN Reason: Dyspepsia Stop: 01/07/24 17:42 Amlodipine Besylate (Amlodipine Besylate 5 Mg Tab) 10 mg PO QPM [facility] Stop: 01/04/24 20:59 Last Admin: 12/08/23 20:04 Dose: Not Given Atorvastatin Calcium (Atorvastatin 20 Mg Tab) 20 mg PO PM [facility] Stop: 01/04/24 20:59 Last Admin: 12/08/23 20:15 Dose: 20 mg Bisacodyl (Bisacodyl 10 Mg Supp) 10 mg ME DAILY PRN PRN Reason: Constipation Stop: 01/07/24 17:42 Diazepam (Diazepam 2 Mg Tablet) 1 mg PO BID PRN PRN Reason: muscle spasm Stop: 01/04/24 20:24 Last Admin: 12/07/23 23:44 Dose: 1 mg Diphenhydramine HCl (Diphenhydramine Capsule 25 Mg Cap) 25 mg PO Q6H PRN PRN Reason: Allergic Rhinitis/Insomnia Stop: 01/07/24 17:42 Donepezil HCl (Donepezil Hcl 10 Mg Tab) 10 mg PO HS [facility] Stop: 01/04/24 22:34 Last Admin: 12/08/23 20:15 Dose: 10 mg Famotidine (Famotidine 20 Mg Tab) 20 mg PO BID [facility] Stop: 01/04/24 20:59 Last Admin: 12/08/23 20:15 Dose: 20 mg Fluoxetine HCl (Fluoxetine Hcl 20 Mg Cap) 40 mg PO QAM [facility] Stop: 01/05/24 08:59 Last Admin: 12/08/23 07:59 Dose: 40 mg Hydralazine HCl (Hydralazine Tab 50 Mg Tab) 50 mg PO BID [facility] Stop: 01/04/24 20:59 Last Admin: 12/08/23 20:03 Dose: Not Given Hydromorphone HCl (Hydromorphone Inj 0.5 Mg/0.5 Ml Syr) 0.5 mg IV Q3H PRN PRN Reason: MODERATE Pain (Scale 4,5,6) & Pre PT Stop: 12/22/23 17:42 Hydromorphone HCl (Hydromorphone Inj 1 Mg/Ml Syringe) 1 mg IV Q3H PRN PRN Reason: SEVERE Pain (Scale 7,8,9,10) Stop: 12/22/23 17:42 Last Admin: 12/09/23 03:11 Dose: 1 mg Hydroxyzine HCl (Hydroxyzine Hcl 25 Mg Tab) 25 mg PO Q8H PRN PRN Reason: Anxiety Stop: 01/07/24 17:42 Lactated Ringer's (Lr) 1,000 mls @ 100 mls/hr IV .Q10H [facility] Stop: 01/07/24 17:42 Last Admin: 12/09/23 03:16 Dose: 100 mls/hr Promethazine HCl 12.5 mg/ (Sodium Chloride) 50.5 mls @ 202 mls/hr IV Q6H PRN PRN Reason: Nausea &/or Vomiting Stop: 01/07/24 17:42 Acetaminophen (Ofirmev) 1,000 mg in 100 mls @ 400 mls/hr IV Q8H PRN PRN Reason: Pain Rating 1-3 & Pre PT Stop: 12/11/23 17:42 Last Infusion: 12/08/23 21:06 Dose: Infused Lorazepam 0.5 mg/ Syringe 0.5 mls @ 2 mls/min IV Q8H PRN; Protocol PRN Reason: Sedation/Anxiety Stop: 01/07/24 17:42 Dexamethasone 6 mg/ Syringe 1.5 mls @ 1 mls/min IV DAILY [facility] Stop: 12/11/23 09:02 Imipramine HCl (Imipramine Hcl 25 Mg Tab) 25 mg PO HS [facility] Stop: 01/07/24 20:59 Last Admin: 12/08/23 20:15 Dose: 25 mg Influenza Virus Vaccine Quadrival (Do Not Administer Flu Vaccine) 1 each N/A PRN PRN PRN Reason: Notification Stop: 01/07/24 17:42 Lorazepam (Lorazepam 0.5 Mg Tab) 0.5 mg PO Q8H PRN PRN Reason: Sedation/Anxiety Stop: 01/07/24 17:42 Magnesium Hydroxide (Magnesium Hydroxide Susp 30 Ml Udc) 30 ml PO Q24H PRN PRN Reason: Constipation Stop: 01/07/24 17:42 Metoclopramide HCl (Metoclopramide Hcl Inj 5 Mg/Ml 2 Ml Vial) 10 mg IV Q6H PRN PRN Reason: Nausea &/or Vomiting Stop: 01/07/24 17:42 Metoprolol Succinate (Metoprolol Succ 25mg Ext Rel Tab) 75 mg PO PM [facility] Stop: 01/04/24 20:59 Last Admin: 12/08/23 20:03 Dose: Not Given Miscellaneous (Remove Lidoderm Patch) 1 each N/A DAILY [facility] Stop: 01/06/24 05:59 Last Admin: 12/08/23 08:51 Dose: 1 each Naloxone HCl (Naloxone Hcl 0.4 Mg/1 Ml Vial/Carp) 0.1 mg IV Q5M PRN PRN Reason: Oversedation/Resp depression Stop: 01/07/24 17:42 Nitroglycerin (Nitroglycerin Sl 0.4 Mg/Tab Tab) 0.4 mg SL UD PRN PRN Reason: Chest Pain Stop: 01/04/24 20:24 Ondansetron HCl (Ondansetron Inj 2 Mg/Ml 2 Ml Vial) 4 mg IV Q6H PRN PRN Reason: Nausea &/or Vomiting Stop: 01/07/24 17:42 Ondansetron HCl (Ondansetron 4 Mg Od Tab) 4 mg PO Q6H PRN PRN Reason: Nausea Stop: 01/07/24 17:42 Oxycodone HCl (Oxycodone Hcl Ir 5 Mg Tab (Immediate Release)) 5 - 10 mg PO Q4H PRN PRN Reason: Pain & Pre PT Stop: 12/22/23 17:42 Last Admin: 12/08/23 23:51 Dose: 10 mg Pantoprazole Sodium (Pantoprazole 40 Mg Tab) 40 mg PO QAM [facility] Stop: 01/05/24 08:59 Last Admin: 12/08/23 07:59 Dose: 40 mg Pneumococcal Polyvalent Vaccine (Do Not Administer Pneumococcal Vaccine) 1 each N/A PRN PRN PRN Reason: Notification Stop: 01/07/24 17:42 Polyethylene Glycol (Polyethylene (Miralax) 17 Gm Pack) 17 gm PO Q6 [facility] Stop: 01/08/24 05:59 Last Admin: 12/09/23 05:38 Dose: 17 gm Senna/Docusate Sodium (Docusate Sodium/Senna 50/8.6mg Tab) 2 tab PO HS [facility] Stop: 01/07/24 20:59 Last Admin: 12/08/23 20:14 Dose: 2 tab Sodium Biphosphate/Sodium Phosphate (Sod Phosphate/Sod Biphosphate Enema 132 Ml Btl) 132 ml ME ONE PRN PRN Reason: Constipation Stop: 01/07/24 17:42 Tramadol HCl (Tramadol Hcl 50 Mg Tablet) 50 - 100 mg PO Q4H PRN PRN Reason: Moderate-Severe pain & Pre PT Stop: 01/07/24 17:42 Last Admin: 12/09/23 05:34 Dose: 100 mg Trazodone HCl (Trazodone Hcl 50 Mg Tab) 150 mg PO QPM [facility] Stop: 01/04/24 20:59 Last Admin: 12/08/23 22:50 Dose: 150 mg
[2023-12-09] MEDS: dexAMETHasone 6 MG in SYRINGE 0 ML IV SCH (08:11)
--- NOTE | 2023-12-09 10:06 | Orthopedic Progress Note ---
Date of Service December 09, 2023 Assessment & Plan (1) Lumbar disc herniation with radiculopathy: Plan: This time continue physical therapy monitor her PHILIP output hopefully transition to rehab Monday. Admission and Anticipated Discharge Date Admission Date: December 05, 2023 Subjective Back pain is controlled leg symptoms markedly improved Physical Exam Physical Exam: Patient is in the chair at the bedside. Has good strength testing. Peers comfortable. Results & Data Vital Signs (Past 12 Hours) Vital Signs Temp Pulse Resp BP Pulse Ox O2 Del Method 12/09/23 07:58 36.6 C 70 16 113/57 L 99 Room Air 12/09/23 03:16 36.4 C L 73 16 124/67 97 Room Air 12/08/23 23:59 36.9 C 58 L 15 93/51 L 96 Room Air 12/08/23 23:20 36.4 C L 63 16 95/48 L 95 Room Air
[2023-12-09] MEDS: ACETAMINOPHEN 500 MG TAB PO PRN (12:04)
[2023-12-10 07:15] LABS: Hematocrit (blood only) 35.4 % (37.0-47.0); Hemoglobin 11.5 g/dl (12.0-16.0); Mean Corpuscular Hemoglobin 29.7 pg (25.0-34.0); Mean Corpuscular Hgb Conc 32.5 g/dL (32.0-36.0); Mean Corpuscular Volume 91.5 fL (80.0-100.0); Mean Platelet Volume 10.3 fL (9.4-12.4); Platelet Count 173 K/uL (130-400); RDW Coefficient of Variation 12.9 % (11.5-14.5); RDW Standard Deviation 42.5 fL (36.4-46.3); Red Blood Count 3.87 M/uL (4.20-5.40); White Blood Count 6.84 K/ul (4.8-10.8)
[2023-12-10 07:47] LABS: BUN Creatinine Ratio 24.5 (10-20); Calcium 8.4 mg/dl (8.6-10.3); Creatinine Clr Calc Pharmacy 102.3 ml/min; Est GFR (African American) 113.1 ml/min; Est GFR (Non-African American) 97.6 ml/min; Magnesium 1.9 mg/dl (1.7-2.4); Potassium 3.5 mmol/L (3.5-5.1)
--- NOTE | 2023-12-10 08:03 | Hospitalist Progress Note ---
Date of Service December 10, 2023 Assessment & Plan (1) Left lumbar radiculopathy: Plan: Lumbar disc herniation with radiculopathy - back pain, LLE pain, numbness, weakness - acute on chronic - was seen in ED previously - on 11/30 CT of lumbar spine was obtained as well as CT abd./pelvis - reportedly she was treated with steroids as outpt but apparently her back/LLE pain/numbness recurs right after medical treatment - she was ordered MRI by her PCP which was scheduled for (day of admission), she was having difficulty moving after her MRI so was sent to the ED - Lumbar spine MRI - 1. A 5 mm focal left foraminal disc protrusion at L5-S1 which abuts and compresses the exiting left L5 nerve root as described above. 2. Grade 1 anterolisthesis of L5 on S1, unchanged. 3. There is moderate central canal narrowing at L5-S1. 4. No acute fractures. - ED provider discussed MRI findings w/ ortho-spine surgeon Dr. Dang - in the ED pt received IV tylenol, toradol, lidocaine patch, gabapentin - cont. home oxycodone, valium, also started with 4mg medrol - Dr. Dang consulted - MRI lumbar spine available for review does demonstrate evidence of a grade 1 spondylolisthesis L4-5 with foraminal disc herniation on the left. There is marked facet hypertrophy noted and severe neural compression of the exiting L5 nerve root on the left. Patient continues to have significant symptoms and so would recommend lumbar decompression and fusion L5-S1. - obtained and reviewed CXR, ECG - pre-op, both unremarkable. Pt also seen by anesthesia for pre-op eval. Pt is now s/p decompression & fusion of L5-S1 on (12/08/2023) - overall doing well post-op, feeling more sore today Acute blood loss anemia, post-op vs. dilutional Current Hgb down to 11.5 (12.7 yesterday and previously/ pre-op Hgb 14-15) - expected, no need for blood transfusion - cont. to monitor H&H (2) CAD (coronary artery disease): Plan: HTN, HLD, paroxysmal SVT - follows with [facility] cardiology, Dr. Ramsey - cont. home meds - metoprolol succinate, amlodipine, atorvastatin, hold hydralazine for now d/t lower BP post-op (3) Type 2 diabetes mellitus: Plan: - Hgb A1c 5.8% as of 11/07/2023 (per outpt EMR epic review) - at home on Jardiance, hold while inpt - monitor BSG while inpt (4) GERD (gastroesophageal reflux disease): Plan: - cont. famotidine, pantoprazole Depression/anxiety - has been feeling more anxious/ depressed since her passed - requested to see psych - consult placed and pt seen by psych liaison -> pt would like outpt follow up/ evaluation DVT ppx: SCDs Admission and Anticipated Discharge Date Admission Date: December 05, 2023 Subjective Pt seen in follow up of back pain/ LLE pain/ numbness - lumbar radiculopathy ortho-spine consulted - s/p lumbar surgery Pt denies any fever, chills, chest pain, shortness of breath or abd. pain Sitting up in chair, in NAD, feeling more sore today No BM yet plan for rehab , [facility], CM aware Review of Systems Review of Systems: All systems reviewed & are unremarkable except as noted in Subjective Physical Exam Physical Exam: Constitutional: WD/WN, vitals as a issa Eyes: PERRL, conjunctiva e normal, anicteri c sclerae ENMT: external ear and n ose normal Neck: supple Respiratory: normal respiratory effort, lungs harman ar to auscultation Cardiovascular: RRR, no murmur, no edema Chest (Breasts): Chest: normal insp ection of chest Gastrointestinal ( Abdomen): normal bowel sound s, soft, nontender Musculoskeletal: Head/Neck/Chest: n ormocephalic, head atraumatic and ne ck supple Extremi ties: extremities normal to inspecti on Skin: no rashes, warm an d dry Neurologic: PERRL, EOMI, no fa ce palsy, no dysar thria, moves extre mities Psychiatric: A+Ox3, euthymic af fect Lymphatic: no lymphedema Results & Data Results & Data Vital Signs (Past 12 Hours) Vital Signs Temp Pulse Resp BP Pulse Ox O2 Del Method 12/10/23 06:20 36.4 C L 70 15 107/57 L 94 Room Air Laboratory Results 12/10/23 Range/Units 06:31 WBC 6.84 (4.8-10.8) K/ul RBC 3.87 L (4.20-5.40) M/uL Hgb 11.5 L (12.0-16.0) g/dl Hct 35.4 L (37.0-47.0) % MCV 91.5 (80.0-100.0) fL MCH 29.7 (25.0-34.0) pg MCHC 32.5 (32.0-36.0) g/dL RDW Std Deviation 42.5 (36.4-46.3) fL RDW Coeff of Contreras 12.9 (11.5-14.5) % Plt Count 173 (130-400) K/uL MPV 10.3 (9.4-12.4) fL Sodium 138 (136-145) mmol/L Potassium 3.5 (3.5-5.1) mmol/L Chloride 104 (98-107) mmol/L Carbon Dioxide 28 (21-32) mmol/L Anion Gap 6 (3-11) BUN 13 (6-23) mg/dl Creatinine 0.53 L (0.6-1.2) mg/dl Est Cr Clr Drug Dosing 102.3 ml/min Est GFR ( Amer) 113.1 ml/min Est GFR (Non-Af Amer) 97.6 ml/min BUN/Creatinine Ratio 24.5 H (10-20) Glucose 109 H (70-99(Fasting)) mg/dl Calcium 8.4 L (8.6-10.3) mg/dl Phosphorus 3.0 D (2.5-4.9) mg/dl Magnesium 1.9 (1.7-2.4) mg/dl Medications Administered Current Inpatient Medications Acetaminophen (Acetaminophen 500 Mg Tab) 1,000 mg PO Q8H PRN PRN Reason: MILD Pain Scale 1,2,3 & Pre PT Stop: 01/07/24 17:42 Last Admin: 12/09/23 22:37 Dose: 1,000 mg Al Hydrox/Mg Hydrox/Simethicone (Aluminum/Magnesium Susp 30 Ml Udc) 30 ml PO Q6H PRN PRN Reason: Dyspepsia Stop: 01/07/24 17:42 Amlodipine Besylate (Amlodipine Besylate 5 Mg Tab) 10 mg PO QPM [facility] Stop: 01/04/24 20:59 Last Admin: 12/09/23 20:03 Dose: 10 mg Atorvastatin Calcium (Atorvastatin 20 Mg Tab) 20 mg PO PM [facility] Stop: 01/04/24 20:59 Last Admin: 12/09/23 20:03 Dose: 20 mg Bisacodyl (Bisacodyl 10 Mg Supp) 10 mg IA DAILY PRN PRN Reason: Constipation Stop: 01/07/24 17:42 Diazepam (Diazepam 2 Mg Tablet) 1 mg PO BID PRN PRN Reason: muscle spasm Stop: 01/04/24 20:24 Last Admin: 12/09/23 20:03 Dose: 1 mg Diphenhydramine HCl (Diphenhydramine Capsule 25 Mg Cap) 25 mg PO Q6H PRN PRN Reason: Allergic Rhinitis/Insomnia Stop: 01/07/24 17:42 Donepezil HCl (Donepezil Hcl 10 Mg Tab) 10 mg PO HS [facility] Stop: 01/04/24 22:34 Last Admin: 12/09/23 20:03 Dose: 10 mg Famotidine (Famotidine 20 Mg Tab) 20 mg PO BID [facility] Stop: 01/04/24 20:59 Last Admin: 12/09/23 20:03 Dose: 20 mg Fluoxetine HCl (Fluoxetine Hcl 20 Mg Cap) 40 mg PO QAM [facility] Stop: 01/05/24 08:59 Last Admin: 12/09/23 08:11 Dose: 40 mg Hydralazine HCl (Hydralazine Tab 50 Mg Tab) 50 mg PO BID [facility] Stop: 01/04/24 20:59 Last Admin: 12/09/23 08:07 Dose: Not Given Hydromorphone HCl (Hydromorphone Inj 0.5 Mg/0.5 Ml Syr) 0.5 mg IV Q3H PRN PRN Reason: MODERATE Pain (Scale 4,5,6) & Pre PT Stop: 12/22/23 17:42 Hydromorphone HCl (Hydromorphone Inj 1 Mg/Ml Syringe) 1 mg IV Q3H PRN PRN Reason: SEVERE Pain (Scale 7,8,9,10) Stop: 12/22/23 17:42 Last Admin: 12/09/23 03:11 Dose: 1 mg Hydroxyzine HCl (Hydroxyzine Hcl 25 Mg Tab) 25 mg PO Q8H PRN PRN Reason: Anxiety Stop: 01/07/24 17:42 Promethazine HCl 12.5 mg/ (Sodium Chloride) 50.5 mls @ 202 mls/hr IV Q6H PRN PRN Reason: Nausea &/or Vomiting Stop: 01/07/24 17:42 Acetaminophen (Ofirmev) 1,000 mg in 100 mls @ 400 mls/hr IV Q8H PRN PRN Reason: Pain Rating 1-3 & Pre PT Stop: 12/11/23 17:42 Last Infusion: 12/08/23 21:06 Dose: Infused Lorazepam 0.5 mg/ Syringe 0.5 mls @ 2 mls/min IV Q8H PRN; Protocol PRN Reason: Sedation/Anxiety Stop: 01/07/24 17:42 Dexamethasone 6 mg/ Syringe 1.5 mls @ 1 mls/min IV DAILY [facility] Stop: 12/11/23 09:02 Last Admin: 12/09/23 08:11 Dose: 1 mls/min Imipramine HCl (Imipramine Hcl 25 Mg Tab) 25 mg PO HS [facility] Stop: 01/07/24 20:59 Last Admin: 12/09/23 20:03 Dose: 25 mg Influenza Virus Vaccine Quadrival (Do Not Administer Flu Vaccine) 1 each N/A PRN PRN PRN Reason: Notification Stop: 01/07/24 17:42 Lorazepam (Lorazepam 0.5 Mg Tab) 0.5 mg PO Q8H PRN PRN Reason: Sedation/Anxiety Stop: 01/07/24 17:42 Magnesium Hydroxide (Magnesium Hydroxide Susp 30 Ml Udc) 30 ml PO Q24H PRN PRN Reason: Constipation Stop: 01/07/24 17:42 Metoclopramide HCl (Metoclopramide Hcl Inj 5 Mg/Ml 2 Ml Vial) 10 mg IV Q6H PRN PRN Reason: Nausea &/or Vomiting Stop: 01/07/24 17:42 Metoprolol Succinate (Metoprolol Succ 25mg Ext Rel Tab) 75 mg PO PM [facility] Stop: 01/04/24 20:59 Last Admin: 12/09/23 20:03 Dose: 75 mg Miscellaneous (Remove Lidoderm Patch) 1 each N/A DAILY [facility] Stop: 01/06/24 05:59 Last Admin: 12/09/23 08:12 Dose: Not Given Naloxone HCl (Naloxone Hcl 0.4 Mg/1 Ml Vial/Carp) 0.1 mg IV Q5M PRN PRN Reason: Oversedation/Resp depression Stop: 01/07/24 17:42 Nitroglycerin (Nitroglycerin Sl 0.4 Mg/Tab Tab) 0.4 mg SL UD PRN PRN Reason: Chest Pain Stop: 01/04/24 20:24 Ondansetron HCl (Ondansetron Inj 2 Mg/Ml 2 Ml Vial) 4 mg IV Q6H PRN PRN Reason: Nausea &/or Vomiting Stop: 01/07/24 17:42 Ondansetron HCl (Ondansetron 4 Mg Od Tab) 4 mg PO Q6H PRN PRN Reason: Nausea Stop: 01/07/24 17:42 Oxycodone HCl (Oxycodone Hcl Ir 5 Mg Tab (Immediate Release)) 5 - 10 mg PO Q4H PRN PRN Reason: Pain & Pre PT Stop: 12/22/23 17:42 Last Admin: 12/10/23 02:52 Dose: 10 mg Pantoprazole Sodium (Pantoprazole 40 Mg Tab) 40 mg PO QAM [facility] Stop: 01/05/24 08:59 Last Admin: 12/09/23 08:11 Dose: 40 mg Pneumococcal Polyvalent Vaccine (Do Not Administer Pneumococcal Vaccine) 1 each N/A PRN PRN PRN Reason: Notification Stop: 01/07/24 17:42 Polyethylene Glycol (Polyethylene (Miralax) 17 Gm Pack) 17 gm PO Q6 [facility] Stop: 01/08/24 05:59 Last Admin: 12/10/23 05:23 Dose: 17 gm Potassium Chloride (Potassium Chloride Crtab 20 Meq Tabcr) 40 meq PO NOW STA Stop: 12/10/23 08:02 Senna/Docusate Sodium (Docusate Sodium/Senna 50/8.6mg Tab) 2 tab PO HS [facility] Stop: 01/07/24 20:59 Last Admin: 12/09/23 20:03 Dose: 2 tab Sodium Biphosphate/Sodium Phosphate (Sod Phosphate/Sod Biphosphate Enema 132 Ml Btl) 132 ml IA ONE PRN PRN Reason: Constipation Stop: 01/07/24 17:42 Tramadol HCl (Tramadol Hcl 50 Mg Tablet) 50 - 100 mg PO Q4H PRN PRN Reason: Moderate-Severe pain & Pre PT Stop: 01/07/24 17:42 Last Admin: 12/10/23 05:19 Dose: 100 mg Trazodone HCl (Trazodone Hcl 50 Mg Tab) 150 mg PO QPM [facility] Stop: 01/04/24 20:59 Last Admin: 12/09/23 22:37 Dose: 150 mg
[2023-12-10] MEDS: POTASSIUM CHLORIDE CRTAB 20 MEQ TABCR PO STA (08:12)
--- NOTE | 2023-12-10 10:36 | Orthopedic Progress Note ---
Date of Service December 10, 2023 Assessment & Plan (1) Lumbar disc herniation with radiculopathy: Plan: We will continue physical therapy and plan for rehab placement possible tomorrow. Admission and Anticipated Discharge Date Admission Date: December 05, 2023 Subjective Back pain controlled leg symptoms improved Physical Exam Physical Exam: Patient is currently in bed. She appears comfortable. Skin strength testing. Results & Data Vital Signs (Past 12 Hours) Vital Signs Temp Pulse Resp BP Pulse Ox O2 Del Method 12/10/23 06:20 36.4 C L 70 15 107/57 L 94 Room Air
[2023-12-10] MEDS: MAGNESIUM HYDROXIDE SUSP 30 ML UDC PO PRN (20:46)
[2023-12-10] MEDS: diphenhydrAMINE Capsule 25 MG CAP PO PRN (20:46)
[2023-12-11 07:46] LABS: Hematocrit (blood only) 32.9 % (37.0-47.0); Hemoglobin 10.6 g/dl (12.0-16.0)
[2023-12-11 08:05] LABS: BUN Creatinine Ratio 20.8 (10-20); Calcium 8.4 mg/dl (8.6-10.3); Creatinine Clr Calc Pharmacy 113.2 ml/min; Est GFR (African American) 116.8 ml/min; Est GFR (Non-African American) 100.8 ml/min
--- NOTE | 2023-12-11 09:24 | Discharge Summary ---
Date of Service December 11, 2023 Admission HPI Per Admitting Provider 68 yo F with hx of CAD, HTN, HLD, paroxysmal SVT, renal artery aneurysm, DM type 2, GERD , anterolithesis who presents with LLE pain, numbness after having MRI test done today. Pt reports this happens to her when she has to lay down or not move for a prolonged time. She was seen previously in ED for back pain and LLE pain/ numbness/ weakness. She was ordered MRI by her PCP which was scheduled for today. After her MRI she was having difficulty moving and so was sent to the ED. In the ED she received IV tylenol, toradol, gabapentin, lidocaine patch. Results of lumbar spine MRI were reviewed by ED provider and discussed with ortho-spine surgeon - Dr. Dang. Discussed to admit pt to the hospital and pt will be seen in consultation by Dr. Dang tomorrow. Pt otherwise denies any fever, chills, chest pain or shortness of breath. Admission Exam Per Admitting Provider Constitutional: WD/WN, vitals as above Eyes: PERRL, conjunctivae normal, anicteric sclerae ENMT: external ear and nose normal, oropharynx normal Neck: trachea midline, no thyromegaly Respiratory: normal respiratory effort, lungs clear to auscultation Cardiovascular: RRR, no murmur, no edema Chest (Breasts): Chest: normal inspection of chest Gastrointestinal (Abdomen): normal bowel sounds, soft, nontender, no hepatosplenomegaly Musculoskeletal: Head/Neck/Chest: normocephalic, head atraumatic and neck supple Extremities: extremities normal to inspection (able to move LEs while laying in bed) Skin: no rashes, warm and dry Neurologic: PERRL, EOMI, accommodation nl, no face palsy, no dysarthria Psychiatric: A+Ox3, euthymic affect Lymphatic: no lymphedema Principal Diagnosis Lumbar disc herniation with radiculopathy and spinal stenosis with spo ndylolisthesis L5-S1 Discharge Exam Constitutional: WD/WN, vitals as above Eyes: PERRL, conjunctivae normal, anicteric sclerae ENMT: external ear and nose normal Neck: supple Respiratory: normal respiratory effort, lungs clear to auscultation Cardiovascular: RRR, no murmur, no edema Chest (Breasts): Chest: normal inspection of chest Gastrointestinal (Abdomen): normal bowel sounds, soft, nontender Musculoskeletal: Head/Neck/Chest: normocephalic, head atraumatic and neck supple Extremities: extremities normal to inspection Skin: no rashes, warm and dry Neurologic: PERRL, EOMI, no face palsy, no dysarthria, moves extremities Psychiatric: A+Ox3, euthymic affect Lymphatic: no lymphedema Discharge Data Allergies Allergy/AdvReac Type Severity Reaction Status Date / Time Penicillins Allergy Mild rash Verified 12/08/23 11:52 lisinopril AdvReac Intermediate Cough Unverified 12/08/23 11:52 Consultations 12/05/23 17:30 ED Decision to Admit Stat 12/05/23 17:37 Consult Orthopedic Surgery Routine Procedures Performed Operation Date: 12/08/23 08:05 Actual Procedures p Lumbar Decompression and Fusion L5-S1 with Spinal Cord Monitoring(Not Applicable) - Shayne Dang, Ordered Studies 12/08/23 [place] lumbar spine 2-3V Routine Hospital Course (1) Left lumbar radiculopathy: Lumbar disc herniation with radiculopathy - back pain, LLE pain, numbness, weakness - acute on chronic - was seen in ED previously - on 11/30 CT of lumbar spine was obtained as well as CT abd./pelvis - reportedly she was treated with steroids as outpt but apparently her back/LLE pain/numbness recurs right after medical treatment - she was ordered MRI by her PCP which was scheduled for (day of admission), she was having difficulty moving after her MRI so was sent to the ED - Lumbar spine MRI - 1. A 5 mm focal left foraminal disc protrusion at L5-S1 which abuts and compresses the exiting left L5 nerve root as described above. 2. Grade 1 anterolisthesis of L5 on S1, unchanged. 3. There is moderate central canal narrowing at L5-S1. 4. No acute fractures. - ED provider discussed MRI findings w/ ortho-spine surgeon Dr. Dang - in the ED pt received IV tylenol, toradol, lidocaine patch, gabapentin - cont. home oxycodone, valium, also started with 4mg medrol - Dr. Dang consulted - MRI lumbar spine available for review does demonstrate evidence of a grade 1 spondylolisthesis L4-5 with foraminal disc herniation on the left. There is marked facet hypertrophy noted and severe neural compression of the exiting L5 nerve root on the left. Patient continues to have significant symptoms and so would recommend lumbar decompression and fusion L5-S1. - obtained and reviewed CXR, ECG - pre-op, both unremarkable. Pt also seen by anesthesia for pre-op eval. Pt is now s/p decompression & fusion of L5-S1 on (12/08/2023) - overall doing well post-op Acute blood loss anemia, post-op vs. dilutional Current Hgb down to 10.6 (down from 11.5 yesterday, 12.7 post-op day and previously/ pre-op Hgb 14-15) - expected, no need for blood transfusion - cont. to monitor H&H - start po iron supplement (2) CAD (coronary artery disease): HTN, HLD, paroxysmal SVT - follows with [facility] cardiology, Dr. Ramsey - cont. home meds - metoprolol succinate, amlodipine, atorvastatin, hold hydralazine for now d/t lower BP post-op (3) Type 2 diabetes mellitus: - Hgb A1c 5.8% as of 11/07/2023 (per outpt EMR epic review) - at home on Jardiance, hold while inpt - monitor BSG while inpt (4) GERD (gastroesophageal reflux disease): - cont. famotidine, pantoprazole Depression/anxiety - has been feeling more anxious/ depressed since her passed - requested to see psych - consult placed and pt seen by psych liaison -> pt would like outpt follow up/ evaluation DVT ppx: SCDs Total Time Total Time Spent Total Time Spent (In Minutes): 40 Discharge Plan Discharge Items Patient Disposition: Transfer Inpatient Rehab Fac Reason For Visit: LLE NUMBNESS, WEAKNESS Discharge Diagnosis: Lumbar disc herniation with radiculopathy and spinal stenosis with spondyloli sthesis L5-S1 Activity: As commented below Non-emergency contact: Primary Care Provider Call non-emergency contact if: you have any medication questions Follow-up/Referrals: Soraya Payne [Primary Care Provider] - Diet: Regular Addtl Attending Provider Instructions: ACTIVITY RECOMMENDATIONS: SELF CARE INSTRUCTIONS AFTER THORACIC/LUMBAR FUSIONS 1. You may walk to your tolerance. It is good exercise for your legs and back. Expect some back and intermittent leg aches and pains. 2. You may perform "counter-top" level activities (make a sandwich, claudia with a project, etc.). 3. No bending or lifting of more than 10 pounds or back twisting of any nature (roll like a log when turning in bed). 4. You may ride in a car for 20-30 minutes at a time. No driving until after your first visit with your doctor. 5. Frequent changes of position and restricting sitting to 30 minutes at a time will help limit the amount of back spasms and stiffness you may experience. 6. You may discontinue the use of ambulatory aids (cane, crutches, etc.) once your strength and confidence allow. 7. You may building serviceman the shower and let water strike your incision when you arrive home at least once daily. Do not take a tub bath, sit in a hot tub or go into a swimming pool until after your first recheck in the office. SPECIAL CARE INSTRUCTIONS: VERY IMPORTANT TO READ AND REVIEW A. Your surgical incision has been closed with a cosmetic suture under the skin that will dissolve in about 6 weeks. In 14 days, you can use a pair of clean scissors and cut the suture that is left outside of the skin at the ends of your incision. 1. The small skin tapes can be removed 7 days after surgery if they have not fallen off by that point. 2. You may keep the wound open to air as much as possible to promote healing after post-op day number 5 unless told otherwise by your doctor. 3. If you think the wound looks like it is becoming infected (redness or worsening drainage) and/or you are experiencing fever, chill or worsening back pain and muscle spasms, contact the office so that we may evaluate you as soon as possible. B. Complications are uncommon, but please contact us if you have any signs or symptoms of: 1. wound infection (fever higher than 102.5 degrees F, redness, separation of wound, drainage, or increasing pain from the incision) 2. blood clots in legs (pain, swelling, redness and warmth in legs) 3. urinary tract infection (fever higher than 102.5 degrees F, burning upon urination or increased frequency of urination) 4. nerve problems (inability to walk on your toes or heels, numbness, loss of bowel or bladder control) 5. any other symptoms that concern you C. Please call the office at if you have any concerns or questions about your operation or recovery. D. No smoking! Smoking drastically decreases the chance of a solid fusion. E. Do not take any anti-inflammatory medications (Indocin, Advil, Motrin, Aspirin, Naprosyn, etc.) as these may inhibit the chance of a solid fusion. Tylenol is okay to take for pain. MANAGING PAIN AFTER SPINAL SURGERY 1. Narcotic medication is intended for short-term use and will be provided for surgical pain. Surgical pain usually lasts for a period of 4-6 weeks. Narcotic medication includes Percocet, Vicodin, Darvocet, Tylenol #3 or Lortab. 2. Longer-term pain is more appropriately treated with non-narcotic medication such as Tylenol ES. 3. Muscle spasm is not appropriately treated with narcotics. Muscle relaxers such as Soma, Flexeril or Skelaxin can be used along with Tylenol ES. 4. Remember that we all live with some "aches and pains". This is not unusual or uncommon after an injury or as we get older. a. Back pain is expected and may include muscle spasms for 4 to 6 weeks after surgery. The pain should gradually improve. If the pain worsens for no apparent reason, please contact the office. b. Intermittent leg pain may also be experienced and should not be concerned about unless it worsens for no apparent reason. If so, please contact the office. 5. We will provide appropriate medication within the normal guidelines of their prescribed use. We will also be very cautious and aware of potential abuse and extended duration of patients' medication needs. a. Pain medications are for your comfort and to assist with sleep and rest so that the tissue can heal. They are not provided in order to return to normal activity and should not be used through the day. To do so or worsening pain at night can result from ongoing tissue damage and development of tolerance to the prescribed medicine. 6. Please allow 2-3 days to process refills. Prescriptions will not be mailed but must be picked up at the office. FOLLOW UP VISIT: Keep your scheduled follow-up appointment. Any questions, please call the office at . Pending Studies at Discharge: No Stand-Alone Forms: My [facility] Skilled Items Patient informed of condition?: Yes DNR: No Discharge Level of Care: Acute rehab Communicable Disease: No Discharge Prognosis: Improving Lines: None Urinary Catheter: No Medications and DC Order Prescriptions: New tramadol 50 mg tablet 50 mg PO Q6H PRN (Reason: pain, moderate) Qty: 30 0RF oxycodone 5 mg tablet 5 mg PO Q6H PRN (Reason: pain) Qty: 30 0RF polyethylene glycol 3350 [Miralax] 17 gram Powder In Packet 17 g PO DAILY Qty: 14 0RF Continued metoprolol succinate 50 mg tablet extended release 24 hr 75 mg PO PM Qty: 180 3RF atorvastatin [Lipitor] 20 mg Tablet 20 mg PO PM fluoxetine 40 mg capsule 40 mg PO QAM nitroglycerin 0.4 mg tablet, sublingual 0.4 mg sublingual UD PRN (Reason: Chest Pain) oxycodone 5 mg tablet 5 mg PO Q8H PRN (Reason: pain) Qty: 8 0RF Rx Instructions: As of 12/05/23 pt hasn't started yet/ do not take at same time as valium diazepam [Valium] 2 mg tablet 1 mg PO BID PRN (Reason: muscle spasm) Qty: 4 0RF Rx Instructions: As of 12/05/23 pt hasn't started medication yet. do not take at the same time as oxycodone celecoxib 200 mg capsule 200 mg PO QAM imipramine HCl 50 mg tablet 50 mg PO HS trazodone 50 mg tablet 150 mg PO QPM ondansetron HCl 8 mg tablet 8 mg PO Q8H PRN (Reason: Nausea And Vomiting) acetaminophen [Tylenol Ex Str Rapid Release] 500 mg Tablet 500 mg PO Q6H PRN (Reason: PAIN/FEVER) famotidine 20 mg tablet 20 mg PO BID PRN (Reason: Acid Reflux) amlodipine 10 mg tablet 10 mg PO QPM naproxen sodium [Aleve] 220 mg Tablet 220 mg PO BID PRN (Reason: Pain) cholecalciferol (vitamin D3) 1,250 mcg (50,000 unit) capsule 50,000 unit PO WK Rx Instructions: Monday Jardiance 10 mg tablet 10 mg PO QAM donepezil 10 mg tablet 10 mg PO HS Held hydralazine 50 mg tablet 50 mg PO BID Hold Instructions: Resume on 12/14/23. monitor BP, discuss w/ physician before resuming Discharge Orders: Discharge Order (Routine); Ordered 12/11/23 Ordered By: Shayne Dang Admission Data Admit Date/Time: 12/05/23 17:40 Attending Provider: Edi Rodriguez Admit Provider: Edi Rodriguez Primary Care Provider: Soraya Payne Other Providers: [facility]; Edi Rodriguez; Shayne Dang
--- NOTE | 2023-12-11 09:24 | Discharge Summary ---
Date of Service December 11, 2023 Admission HPI Per Admitting Provider 68 yo F with hx of CAD, HTN, HLD, paroxysmal SVT, renal artery aneurysm, DM type 2, GERD , anterolithesis who presents with LLE pain, numbness after having MRI test done today. Pt reports this happens to her when she has to lay down or not move for a prolonged time. She was seen previously in ED for back pain and LLE pain/ numbness/ weakness. She was ordered MRI by her PCP which was scheduled for today. After her MRI she was having difficulty moving and so was sent to the ED. In the ED she received IV tylenol, toradol, gabapentin, lidocaine patch. Results of lumbar spine MRI were reviewed by ED provider and discussed with ortho-spine surgeon - Dr. Dang. Discussed to admit pt to the hospital and pt will be seen in consultation by Dr. Dang tomorrow. Pt otherwise denies any fever, chills, chest pain or shortness of breath. Principal Diagnosis Lumbar disc herniation with radiculopathy Discharge Data Allergies Allergy/AdvReac Type Severity Reaction Status Date / Time Penicillins Allergy Mild rash Verified 12/08/23 11:52 lisinopril AdvReac Intermediate Cough Unverified 12/08/23 11:52 Consultations 12/05/23 17:30 ED Decision to Admit Stat 12/05/23 17:37 Consult Orthopedic Surgery Routine Procedures Performed Operation Date: 12/08/23 08:05 Actual Procedures p Lumbar Decompression and Fusion L5-S1 with Spinal Cord Monitoring(Not Applicable) - Shayne Dang DO Ordered Studies 12/08/23 [place] lumbar spine 2-3V Routine Hospital Course (1) Lumbar disc herniation with radiculopathy: Patient was admitted with severe back and leg pain. Ultimately she underwent lumbar decompression fusion tolerates well was taken to orthopedic for postoperative. Postop Soham she progressed very nicely. Marked improvement of radicular complaints. PHILIP drain decreased appropriately. Excellent strength testing. Subsidy discharged to rehab. Discharge orders instructions from the chart for further view. Total Time Total Time Spent Total Time Spent (In Minutes): 20 minutes Discharge Plan Discharge Items Patient Disposition: Transfer Inpatient Rehab Fac Reason For Visit: LLE NUMBNESS, WEAKNESS Discharge Diagnosis: Lumbar disc herniation with radiculopathy and spinal stenosis with spondylolisthesis L5-S1 Activity: As commented below Non-emergency contact: Primary Care Provider Call non-emergency contact if: you have any medication questions Follow-up/Referrals: Soraya Payne [Primary Care Provider] - Diet: Regular Addtl Attending Provider Instructions: ACTIVITY RECOMMENDATIONS: SELF CARE INSTRUCTIONS AFTER THORACIC/LUMBAR FUSIONS 1. You may walk to your tolerance. It is good exercise for your legs and back. Expect some back and intermittent leg aches and pains. 2. You may perform "counter-top" level activities (make a sandwich, claudia with a project, etc.). 3. No bending or lifting of more than 10 pounds or back twisting of any nature (roll like a log when turning in bed). 4. You may ride in a car for 20-30 minutes at a time. No driving until after your first visit with your doctor. 5. Frequent changes of position and restricting sitting to 30 minutes at a time will help limit the amount of back spasms and stiffness you may experience. 6. You may discontinue the use of ambulatory aids (cane, crutches, etc.) once your strength and confidence allow. 7. You may superintendent generating plant the shower and let water strike your incision when you arrive home at least once daily. Do not take a tub bath, sit in a hot tub or go into a swimming pool until after your first recheck in the office. SPECIAL CARE INSTRUCTIONS: VERY IMPORTANT TO READ AND REVIEW A. Your surgical incision has been closed with a cosmetic suture under the skin that will dissolve in about 6 weeks. In 14 days, you can use a pair of clean scissors and cut the suture that is left outside of the skin at t he ends of your incision. 1. The small skin tapes can be removed 7 days after surgery if they have not fallen off by that point. 2. You may keep the wound open to air as much as possible to promote healing after post-op day number 5 unless told otherwise by your doctor. 3. If you think the wound looks like it is becoming infected (redness or worsening drainage) and/or you are experiencing fever, chill or worsening back pain and muscle spasms, contact the office so that we may evaluate you as soon as possible. B. Complications are uncommon, but please contact us if you have any signs or symptoms of: 1. wound infection (fever higher than 102.5 degrees F, redness, separation of wound, drainage, or increasing pain from the incision) 2. blood clots in legs (pain, swelling, redness and warmth in legs) 3. urinary tract infection (fever higher than 102.5 degrees F, burning upon urination or increased frequency of urination) 4. nerve problems (inability to walk on your toes or heels, numbness, loss of bowel or bladder control) 5. any other symptoms that concern you C. Please call the office at if you have any concerns or questions about your operation or recovery. D. No smoking! Smoking drastically decreases the chance of a solid fusion. E. Do not take any anti-inflammatory medications (Indocin, Advil, Motrin, Aspirin, Naprosyn, etc.) as these may inhibit the chance of a solid fusion. Tylenol is okay to take for pain. MANAGING PAIN AFTER SPINAL SURGERY 1. Narcotic medication is intended for short-term use and will be provided for surgical pain. Surgical pain usually lasts for a period of 4-6 weeks. Narcotic medication includes Percocet, Vicodin, Darvocet, Tylenol #3 or Lortab. 2. Longer-term pain is more appropriately treated with non-narcotic medication such as Tylenol ES. 3. Muscle spasm is not appropriately treated with narcotics. Muscle relaxers such as Soma, Flexeril or Skelaxin can be used along with Tylenol ES. 4. Remember that we all live with some "aches and pains". This is not unusual or uncommon after an injury or as we get older. a. Back pain is expected and may include muscle spasms for 4 to 6 weeks after surgery. The pain should gradually improve. If the pain worsens for no apparent reason, please contact the office. b. Intermittent leg pain may also be experienced and should not be concerned about unless it worsens for no apparent reason. If so, please contact the office. 5. We will provide appropriate medication within the normal guidelines of their prescribed use. We will also be very cautious and aware of potential abuse and extended duration of patients' medication needs. a. Pain medications are for your comfort and to assist with sleep and rest so that the tissue can heal. They are not provided in order to return to normal activity and should not be used through the day. To do so or worsening pain at night can result from ongoing tissue damage and development of tolerance to the prescribed medicine. 6. Please allow 2-3 days to process refills. Prescriptions will not be mailed but must be picked up at the office. FOLLOW UP VISIT: Keep your scheduled follow-up appointment. Any questions, please call the office at . Pending Studies at Discharge: No Stand-Alone Forms: My [facility] Skilled Items Patient informed of condition?: Yes DNR: No Discharge Level of Care: Acute rehab Communicable Disease: No Discharge Prognosis: Improving Lines: None Urinary Catheter: No Medications and DC Order Prescriptions: New tramadol 50 mg tablet 50 mg PO Q6H PRN (Reason: pain, moderate) Qty: 30 0RF oxycodone 5 mg tablet 5 mg PO Q6H PRN (Reason: pain) Qty: 30 0RF Continued metoprolol succinate 50 mg tablet extended release 24 hr 75 mg PO PM Qty: 180 3RF atorvastatin [Lipitor] 20 mg Tablet 20 mg PO PM fluoxetine 40 mg capsule 40 mg PO QAM nitroglycerin 0.4 mg tablet, sublingual 0.4 mg sublingual UD PRN (Reason: Chest Pain) oxycodone 5 mg tablet 5 mg PO Q8H PRN (Reason: pain) Qty: 8 0RF Rx Instructions: As of 12/05/23 pt hasn't started yet/ do not take at same time as valium diazepam [Valium] 2 mg tablet 1 mg PO BID PRN (Reason: muscle spasm) Qty: 4 0RF Rx Instructions: As of 12/05/23 pt hasn't started medication yet. do not take at the same time as oxycodone celecoxib 200 mg capsule 200 mg PO QAM imipramine HCl 50 mg tablet 50 mg PO HS trazodone 50 mg tablet 150 mg PO QPM ondansetron HCl 8 mg tablet 8 mg PO Q8H PRN (Reason: Nausea And Vomiting) acetaminophen [Tylenol Ex Str Rapid Release] 500 mg Tablet 500 mg PO Q6H PRN (Reason: PAIN/FEVER) famotidine 20 mg tablet 20 mg PO BID PRN (Reason: Acid Reflux) amlodipine 10 mg tablet 10 mg PO QPM naproxen sodium [Aleve] 220 mg Tablet 220 mg PO BID PRN (Reason: Pain) hydralazine 50 mg tablet 50 mg PO BID cholecalciferol (vitamin D3) 1,250 mcg (50,000 unit) capsule 50,000 unit PO WK Rx Instructions: Monday Jardiance 10 mg tablet 10 mg PO QAM donepezil 10 mg tablet 10 mg PO HS Discharge Orders: Discharge Order (Routine); Ordered 12/11/23 Ordered By: Shayne Dang Admission Data Admit Date/Time: 12/05/23 17:40 Attending Provider: Edi Rodriguez Admit Provider: Edi Rodriguez Primary Care Provider: Soraya Payne Other Providers: [facility]; Edi Rodriguez; Shayne Dang
[2023-12-11] MEDS: bisacodyL 10 MG SUPP PR STA (10:23)
[2023-12-12] MEDS ORDERED: FERROUS SULFATE 325 MG TAB PO SCH (09:00)
== END 2023-12-11 12:57 | DRG 454 ==
LOC: ED 13:05 → 2N 17:40 → 3W 12-08 17:22